=== PATIENT | male | born 1985 | race Caucasian/White ===

== ENCOUNTER 2023-02-07 20:05 | Emergency (ER) | payer BC, SELFPAY ==
[2023-02-07 20:10] VITALS: BP 148/96; PULSE 69; RESP 18; TEMP 36.9; O2SAT 100; BMI 35.0
--- NOTE | 2023-02-07 20:16 | XR_ITS ---
[address] [address] Patient Name: SARAH REA MRN: [id number] date: 1985 Sex: M Assigned Patient Location: ER Current Patient Location: ER Accession/Order Number: [id number] Exam Date: 02/07/2023 20:37 Report Date: 02/07/2023 21:22 At the request of: ÁNGEL BRUNO Procedure: XR hand LT min 3V EXAM: XR hand LT min 3V HISTORY: Thumb bent backwards. COMPARISON: None. TECHNIQUE: 3 views FINDINGS: No osseous lesion, fracture, dislocation or subluxation. Joint spaces are normal. No visualized effusion. No visualized soft tissue edema. XR/XR hand LT min 3V IMPRESSION: Normal x-rays Electronically authenticated by: ANN BAUTISTA Date: 02/07/2023 21:22
--- NOTE | 2023-02-07 21:55 | ED.GENADUL1 ---
HPI - General Adult General Chief complaint: Extremity Injury, Upper Stated complaint: LT THUMB INJURY Time Seen by Provider: 02/07/23 21:32 Source: patient Mode of arrival: walk-in Limitations: no limitations History of Present Illness HPI narrative: Patient presented with left thumb injury after he was in the [facility] pit and Apparently while other people surfing the concert he injured his left thumb, he mentioned that he felt that his left thumb got fully extended enough to touch the back of his arm And that when he felt the pain Related Data Home Medications Medication Instructions Recorded Confirmed bupropion HCl 300 mg 24 hr tablet, 300 mg PO DAILY 02/07/23 02/07/23 extended release (Wellbutrin XL) fluoxetine 10 mg capsule (Prozac) 10 mg PO DAILY 02/07/23 02/07/23 mirtazapine 15 mg tablet (Remeron) 15 mg PO DAILY 02/07/23 02/07/23 Previous Rx's Medication Instructions Recorded famotidine 20 mg tablet (Pepcid) 20 mg PO BID #10 tabs 02/07/23 meloxicam 15 mg tablet 15 mg PO DAILY PRN pain #10 tabs 02/07/23 prednisone 50 mg tablet 50 mg PO DAILY 5 days #5 tabs 02/07/23 Allergies Allergy/AdvReac Type Severity Reaction Status Date / Time No Known Drug Allergies Allergy Verified 02/07/23 20:14 Review of Systems ROS Status of ROS 10 or more systems reviewed and unremarkable except as noted in history and below Exam Narrative Exam Narrative: Nurses notes and vital signs reviewed and patient is not hypoxic. General: Well-appearing and in no apparent distress. Skin: Warm, dry, no pallor noted. No rash. Head: Normocephalic, atraumatic. Neck: Supple, non-tender. Eye: Pupils are equal, round and EOMI. No scleral icterus. Ears, Nose, Mouth, and Throat: TM are clear, no nasal mucosal hypertrophy. Oral mucosa is moist, no posterior oropharynx erythema, uvula is mid-line Cardiovascular: Regular Rate and Rhythm without murmur, gallop or rub. Respiratory: No accessory muscle use or respiratory distress. Lungs are clear to auscultation, no wheezing, rales or rhonchi Chest Wall: no tenderness Back: No midline thoracic or lumbar vertebral tenderness. No CVA tenderness Musculoskeletal: normal ROM, no calf or popliteal tenderness, no lower extremity edema/swelling,There is swelling and edema of the left thumb but proximal area of the metacarpophalangeal joint there is no tenderness on palpation of the scaphoid area or the rest the tenderness only at the proximal phalanx of the thumb on the left hand GI: Abdomen is soft, non-distended. Normal bowel sounds. No masses appreciated. No tenderness to palpation. No rebound, guarding, or rigidity noted. Neurological: A&O x4. No cranial nerve dysfunction observed. No truncal ataxia. Moves all extremities. Sensation intact. Psychiatric: Cooperative and interactive. Normal mood and affect. Constitutional Vital Signs, click to edit/add: Last Vital Signs Temp 98.5 F 02/07/23 20:10 Pulse 69 02/07/23 20:10 Resp 18 02/07/23 20:10 BP 148/96 H 02/07/23 20:10 Pulse Ox 100 02/07/23 20:10 O2 Del Method Room Air 02/07/23 20:10 Course Vital Signs Vital signs: Vital Signs Temperature 98.5 F 02/07/23 20:10 Pulse Rate 69 02/07/23 20:10 Respiratory Rate 18 02/07/23 20:10 Blood Pressure 148/96 H 02/07/23 20:10 Pulse Oximetry 100 02/07/23 20:10 Oxygen Delivery Method Room Air 02/07/23 20:10 Temperature 98.5 F 02/07/23 20:10 Pulse Rate 69 02/07/23 20:10 Respiratory Rate 18 02/07/23 20:10 Blood Pressure 148/96 H 02/07/23 20:10 Pulse Oximetry 100 02/07/23 20:10 Oxygen Delivery Method Room Air 02/07/23 20:10 Medical Decision Making MDM Narrative Medical decision making narrative: X-ray of the patient's left hand showed no acute pathology The patient was treated possible sprain of the left metacarpophalangeal joint and he will be treated with a thumb splint ( spica ) with elevation and rest and follow-up with orthopedic at outpatient Discharge home with the prednisone Mobic as well as the Pepcid The patient is to followup with primary care physician in next 2-3 days or to return to the emergency department should any of the signs or symptoms worsen or new symptoms develop. The patient agrees with the following Diagnosis and Treatment plan and the patient will be discharged home. Discharge Plan Discharge Chief Complaint: Extremity Injury, Upper Clinical Impression: Left thumb sprain Patient Disposition: Home, Self-Care Time of Disposition Decision: 22:09 Condition: Good Mode of Transportation: Private Vehicle Prescriptions / Home Meds: New famotidine [Pepcid] 20 mg tablet 20 mg PO BID Qty: 10 0RF prednisone 50 mg tablet 50 mg PO DAILY 5 Days Qty: 5 0RF meloxicam 15 mg tablet 15 mg PO DAILY PRN (Reason: pain) Qty: 10 0RF No Action fluoxetine [Prozac] 10 mg capsule 10 mg PO DAILY bupropion HCl [Wellbutrin XL] 300 mg tablet extended release 24 hr 300 mg PO DAILY mirtazapine [Remeron] 15 mg tablet 15 mg PO DAILY Instructions: Finger Sprain (ED) Stand Alone Forms: Portal Instructions Referrals: Physician,Non-Staff, MD [Primary Care Provider] - 1 week Discharge Date/Time: 02/07/23 22:29
[2023-02-07] MEDS: KETOROLAC TROMETHAMINE 30 MG/ML VIAL IM (22:12)
== END 2023-02-07 22:29 | disposition home or self-care (01) ==
PROVIDERS: Emergency Provider Emergency Medicine
DX: S63.602A Unspecified sprain of left thumb, initial encounter (principal); X50.9XXA Other and unspecified overexertion or strenuous movements or postures, initial encounter
CPT/HCPCS: 73130; 96372; 99284

== ENCOUNTER 2023-04-12 17:58 | Emergency (ER) | payer BC, SELFPAY ==
[2023-04-12 18:03] VITALS: BP 140/84; PULSE 75; RESP 18; TEMP 36.6; O2SAT 98; BMI 29.9
[2023-04-12 18:12] VITALS: O2SAT 99
--- NOTE | 2023-04-12 18:13 | ECG_ITS ---
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
--- NOTE | 2023-04-12 18:13 | XR_ITS ---
The [address] [address] Patient Name: SARAH REA MRN: [id number] date: 1985 Sex: M Assigned Patient Location: ED.MAIN Current Patient Location: ED.MAIN Accession/Order Number: [id number] Exam Date: 04/12/2023 18:41 Report Date: 04/12/2023 19:52 At the request of: JESUS HENDERSON Procedure: XR chest 1V EXAM: XR chest 1V REASON FOR EXAM: Male, 37 years, chest pain. TECHNIQUE: A single AP view of the chest is performed. COMPARISON: 12/15/2022. FINDINGS: Cardiac monitoring leads project over the chest. The lungs are expanded and clear. Normal pleura. Normal size heart. Normal mediastinum and heavenly. Normal visualized pulmonary arteries. Normal visualized aortic arch and descending thoracic aorta. Normal visualized thoracic spine. Normal visualized ribs, clavicles, and shoulders. There is no demonstrated abnormality of the visualized soft tissue structures of the upper abdomen. XR/XR chest 1V IMPRESSION: Normal examination of the chest. Electronically authenticated by: ASIA MENDIETA Date: 04/12/2023 19:52
--- NOTE | 2023-04-12 18:22 | ED.CHESTPAI1 ---
HPI - Chest Pain General Chief Complaint: Chest Pain Stated Complaint: CHEST PAIN Time Seen by Provider: 04/12/23 18:01 Source: patient Mode of arrival: walk-in Limitations: no limitations History of Present Illness HPI narrative: Patient told me that his symptoms started last night - he had the sensation that his heart was fluttering in his chest and occasionally racing. He did not feel any dizziness but had the vague sensation that he might pass out. He was laying down in bed at the time. he denied any recent vigorous activity or inciting event. No reason injury to the chest wall. No cough. No fever or chills. This morning around 8am he developed pain in the left chest. This has been intermittent since it began. He also has pain in the left shoulder that he describes as a tension . No recent shoulder injury or known activity to cause shoulder pain. While he does suffer from depression and anxiety with prior history of panic episodes, he told me that this feels different than those episodes. Nothing taken at home for the pain. No personal history of DM, HTN or CAD. 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 He denied any prolonged periods of sitting or laying, no recent airline flights or other DVT risk activities. Related Data Home Medications Medication Instructions Recorded Confirmed bupropion HCl 300 mg 24 hr tablet, 300 mg PO DAILY 02/07/23 02/07/23 extended release (Wellbutrin XL) fluoxetine 10 mg capsule (Prozac) 10 mg PO DAILY 02/07/23 02/07/23 mirtazapine 15 mg tablet (Remeron) 15 mg PO DAILY 02/07/23 02/07/23 Previous Rx's Medication Instructions Recorded famotidine 20 mg tablet (Pepcid) 20 mg PO BID #10 tabs 02/07/23 meloxicam 15 mg tablet 15 mg PO DAILY PRN pain #10 tabs 02/07/23 prednisone 50 mg tablet 50 mg PO DAILY 5 days #5 tabs 02/07/23 Allergies Allergy/AdvReac Type Severity Reaction Status Date / Time No Known Drug Allergies Allergy Verified 02/07/23 20:14 PFSH PFS Social History Smoking status: Current every day smoker Exam Narrative Exam Narrative: Nurses notes and vital signs reviewed and patient is not hypoxic. General: Well-appearing and in no apparent distress. Skin: Warm, dry, no pallor noted. No rash. Head: Normocephalic, atraumatic. Neck: Supple, non-tender. Eye: Pupils are equal, round and EOMI. No scleral icterus. Cardiovascular: Regular Rate and Rhythm without murmur, gallop or rub. Respiratory: No accessory muscle use or respiratory distress. Lungs are clear to auscultation, no wheezing, rales or rhonchi Chest Wall: no tenderness Musculoskeletal: normal ROM, no calf or popliteal tenderness, no lower extremity edema/swelling GI: Abdomen is soft, non-distended. Normal bowel sounds. No tenderness to palpation. No rebound, guarding, or rigidity noted. Neurological: A&O x4. No cranial nerve dysfunction observed. No truncal ataxia. Moves all extremities. Sensation intact. Psychiatric: Cooperative and interactive. Normal mood and affect. Constitutional Vital Signs, click to edit/add: Last Vital Signs Temp 97.8 F 04/12/23 18:03 Pulse 75 04/12/23 18:03 Resp 18 04/12/23 18:03 BP 140/84 04/12/23 18:03 Pulse Ox 99 04/12/23 18:12 O2 Del Method Room Air 04/12/23 18:12 Course Vital Signs Vital signs: Vital Signs Temperature 97.8 F 04/12/23 18:03 Pulse Rate 75 04/12/23 18:03 Respiratory Rate 18 04/12/23 18:03 Blood Pressure 140/84 04/12/23 18:03 Pulse Oximetry 98 04/12/23 18:03 Oxygen Delivery Method Room Air 04/12/23 18:03 Temperature 97.8 F 04/12/23 18:03 Pulse Rate 75 04/12/23 18:03 Respiratory Rate 18 04/12/23 18:03 Blood Pressure 140/84 04/12/23 18:03 Pulse Oximetry 99 04/12/23 18:12 Oxygen Delivery Method Room Air 04/12/23 18:12 MDM - Chest Pain MDM Narrative Medical decision making narrative: 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 Blood drawn and sent for evaluation, including d-dimer, troponin and BNP. portal chest x-ray obtained. This patient was signed out to Dr. Landin at 7 PM shift change to review the lab and x-rays results. Lab Data Labs: Lab Results 04/12/23 Range/Units 18:17 WBC 6.2 (4.0-11.0) 10^3/uL RBC 4.67 L (4.70-6.10) 10^6/uL Hgb 14.4 (14.0-18.0) g/dL Hct 41.3 L (42.0-54.0) % MCV 88.4 (80.0-94.0) fL MCH 30.8 (25.9-34.0) pg MCHC 34.9 (29.9-35.2) g/dL RDW 12.4 (11.0-15.0) % Plt Count 256 (150-450) 10^3/uL MPV 9.7 (9.5-13.5) fL Neut % (Auto) 54.9 (43.0-75.0) % Lymph % (Auto) 35.6 (20.5-60.0) % [place] % (Auto) 7.3 (1.7-12.0) % Eos % (Auto) 1.0 (0.9-7.0) % Baso % (Auto) 0.7 (0.2-2.0) % Neut # (Auto) 3.4 (1.4-6.5) 10^3/uL Lymph # (Auto) 2.2 (1.2-3.8) 10^3/uL [place] # (Auto) 0.5 (0.3-0.8) 10^3/uL Eos # (Auto) 0.1 (0.0-0.7) 10^3/uL Baso # (Auto) 0.0 (0.0-0.1) 10^3/uL Abs Immat Gran (auto) 0.03 (0.00-0.03) 10^3/uL Imm/Tot Granulo (auto) 0.5 (0.0-0.5) % ECG Data Interpretation: EKG interpretation: Emergency Department physician interpretation. Normal sinus rhythm at 66bpm. Normal axis, short [place] intervals and no ST segment elevation or depression. Discharge Plan Discharge Chief Complaint: Chest Pain Clinical Impression: Chest pain Patient Disposition: Still a Patient Prescriptions / Home Meds: No Action fluoxetine [Prozac] 10 mg capsule 10 mg PO DAILY bupropion HCl [Wellbutrin XL] 300 mg tablet extended release 24 hr 300 mg PO DAILY mirtazapine [Remeron] 15 mg tablet 15 mg PO DAILY famotidine [Pepcid] 20 mg tablet 20 mg PO BID Qty: 10 0RF prednisone 50 mg tablet 50 mg PO DAILY 5 Days Qty: 5 0RF meloxicam 15 mg tablet 15 mg PO DAILY PRN (Reason: pain) Qty: 10 0RF Referrals: Physician,Non-Staff, MD [Primary Care Provider] - 1 week
[2023-04-12 18:34] LABS: Basophils Percent Auto 0.7 % (0.2-2.0); Eosinophils Absolute Auto 0.1 10^3/uL (0.0-0.7); Hematocrit 41.3 % (42.0-54.0); Hemoglobin 14.4 g/dL (14.0-18.0); Immature Granulocytes Abs Auto 0.03 10^3/uL (0.00-0.03); Immature Granulocytes Pct Auto 0.5 % (0.0-0.5); Lymphocytes Absolute Auto 2.2 10^3/uL (1.2-3.8); Lymphocytes Percent Auto 35.6 % (20.5-60.0); Mean Corpuscular HGB Conc 34.9 g/dL (29.9-35.2); Mean Corpuscular Hemoglobin 30.8 pg (25.9-34.0); Mean Corpuscular Volume 88.4 fL (80.0-94.0); Mean Platelet Volume 9.7 fL (9.5-13.5); Monocytes Absolute Auto 0.5 10^3/uL (0.3-0.8); Monocytes Percent Auto 7.3 % (1.7-12.0); Neutrophils Absolute Auto 3.4 10^3/uL (1.4-6.5); Neutrophils Percent Auto 54.9 % (43.0-75.0); Platelet Count 256 10^3/uL (150-450); Red Blood Count 4.67 10^6/uL (4.70-6.10); Red Cell Distribution Width 12.4 % (11.0-15.0); White Blood Count 6.2 10^3/uL (4.0-11.0)
[2023-04-12 18:49] LABS: D Dimer 0.19 mg/L FEU (<=0.59)
[2023-04-12 18:57] LABS: Anion Gap 10.5; Carbon Dioxide 26.9 mmol/L (21.0-32.0); Chloride 106 mmol/L (98-107); Estimated GFR (African America >60 (>=60); Glucose 87 mg/dL (74-106); Potassium 3.4 mmol/L (3.5-5.1); Sodium 140 mmol/L (136-145)
[2023-04-12 18:58] LABS: BUN Creatinine Ratio 5.1; Calcium 9.1 mg/dL (8.5-10.1); Estimated GFR (Non-African Ame >60 (>=60); Troponin I High Sensitivity <4.0 pg/mL (4.0-76.1)
== END 2023-04-12 20:25 | disposition home or self-care (01) ==
PROVIDERS: Emergency Medicine; Emergency Provider Internal Medicine
DX: R07.9 Chest pain, unspecified (principal); Z79.899 Other long term (current) drug therapy; F17.210 Nicotine dependence, cigarettes, uncomplicated
CPT/HCPCS: 36415; 71045; 80048; 83880; 84484; 85025; 85378; 93005; 99285

== ENCOUNTER 2023-04-30 15:00 | Emergency (ER) | payer BC, SELFPAY ==
[2023-04-30] VITALS (10 sets, daily range): BP systolic 141; BP diastolic 97; PULSE 68–103; RESP 1–32; TEMP 36.3; O2SAT 94–100; BMI 32.4
--- NOTE | 2023-04-30 15:11 | XR_ITS ---
The [address] [address] Patient Name: SARAH REA MRN: [id number] date: 1985 Sex: M Assigned Patient Location: ED.MAIN Current Patient Location: ER Accession/Order Number: [id number] Exam Date: 04/30/2023 13:25 Report Date: 04/30/2023 15:45 At the request of: OMID MENON Procedure: XR chest 1V EXAMINATION: XR chest 1V HISTORY: CP COMPARISON: No relevant comparison available. TECHNIQUE: FINDINGS: LUNGS: No significant pulmonary parenchymal abnormalities. VASCULATURE: No increased pulmonary vasculature. PLEURA: No pneumothorax, effusion, or pleural thickening. CARDIAC: No cardiomegaly or cardiac silhouette abnormality. MEDIASTINUM: No visible mass or adenopathy. BONES: No fracture or visible bone lesion. OTHER: Negative. XR/XR chest 1V IMPRESSION: No acute cardiopulmonary process Electronically authenticated by: ANN FROST Date: 04/30/2023 15:45
--- NOTE | 2023-04-30 15:11 | ECG_ITS ---
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
--- NOTE | 2023-04-30 15:13 | ED.CHESTPAI1 ---
HPI - Chest Pain General Chief Complaint: Chest Pain Stated Complaint: CHEST PAIN Time Seen by Provider: 04/30/23 15:04 Source: patient Mode of arrival: Wheelchair Limitations: no limitations History of Present Illness HPI narrative: 37-year-old male presents for chest pain. It started twenty minutes ago while he was at work. Today he had a panic attack. He hasn't had any trauma or unusual activity. He is not complaining of shortness of breath. The pain is moderate to severe. It seems to be continuous and it doesn't seem to radiate. Related Data Home Medications Medication Instructions Recorded Confirmed bupropion HCl 300 mg 24 hr tablet, 300 mg PO DAILY 02/07/23 04/30/23 extended release (Wellbutrin XL) fluoxetine 10 mg capsule (Prozac) 10 mg PO DAILY 02/07/23 04/30/23 mirtazapine 15 mg tablet (Remeron) 15 mg PO DAILY 02/07/23 04/30/23 Allergies Allergy/AdvReac Type Severity Reaction Status Date / Time No Known Drug Allergies Allergy Verified 02/07/23 20:14 Review of Systems ROS Narrative A ten point review of systems is negative except as noted above. Psychiatric Reports: panic attacks PFSH PFSH Social History Smoking status: Current every day smoker Exam Narrative Exam Narrative: Nurses note and vital signs reviewed and patient is not hypoxic. General: The patient appears well and in no apparent distress. Patient is resting comfortably on cart. Skin: Warm, dry, no pallor noted. There is no rash noted. Head: Normocephalic, atraumatic Eye: Normal conjunctiva, no drainage Ears, Nose, Mouth, and Throat: oral mucosa is moist. Nares patent. Cardiovascular: Regular Rate and Rhythm Respiratory: Patient is in no distress, no accessory muscle use, lungs are clear to auscultation, no wheezing, rales or rhonchi, mildly tachypneic Back: non-tender GI: often nontender Musculoskeletal: The patient has no evidence of calf tenderness, no pitting edema, symmetrical pulses noted bilaterally Neurological: A&O, normal speech Psychiatric: Cooperative, appears anxious Constitutional Vital Signs, click to edit/add: Last Vital Signs Temp 97.4 F L 04/30/23 15:05 Pulse 76 04/30/23 16:10 Resp 8 L 04/30/23 16:10 BP 141/97 H 04/30/23 15:07 Pulse Ox 94 L 04/30/23 16:10 O2 Del Method Room Air 04/30/23 15:05 Course Vital Signs Vital signs: Vital Signs Temperature 97.4 F L 04/30/23 15:05 Pulse Rate 91 H 04/30/23 15:05 Respiratory Rate 24 04/30/23 15:05 Blood Pressure 141/97 H 04/30/23 15:05 Pulse Oximetry 99 04/30/23 15:05 Oxygen Delivery Method Room Air 04/30/23 15:05 Temperature 97.4 F L 04/30/23 15:05 Pulse Rate 76 04/30/23 16:10 Respiratory Rate 8 L 04/30/23 16:10 Blood Pressure 141/97 H 04/30/23 15:07 Pulse Oximetry 94 L 04/30/23 16:10 Oxygen Delivery Method Room Air 04/30/23 15:05 MDM - Chest Pain MDM Narrative Medical decision making narrative: the patient's workup including EKG, chest x-ray, and troponin is negative. He was given IV Ativan and feels much better and is able to be discharged home. My clinical impression is that he has had a panic attack. Treatment diagnosis and follow-up were discussed with the patient. Differential Diagnosis Differential diagnosis: Likely pneumothorax, unstable angina pectoris, atypical chest pain, st elevation myocardial infarction, costochondritis, chest pain and other (anxiety) Lab Data Attestation: I reviewed the patient's lab results. Labs: Lab Results 04/30/23 Range/Units 15:20 WBC 5.4 (4.0-11.0) 10^3/uL RBC 4.33 L (4.70-6.10) 10^6/uL Hgb 13.5 L (14.0-18.0) g/dL Hct 38.5 L (42.0-54.0) % MCV 88.9 (80.0-94.0) fL MCH 31.2 (25.9-34.0) pg MCHC 35.1 (29.9-35.2) g/dL RDW 12.3 (11.0-15.0) % Plt Count 245 (150-450) 10^3/uL MPV 9.8 (9.5-13.5) fL Neut % (Auto) 63.8 (43.0-75.0) % Lymph % (Auto) 27.0 (20.5-60.0) % [place] % (Auto) 8.1 (1.7-12.0) % Eos % (Auto) 0.2 L (0.9-7.0) % Baso % (Auto) 0.7 (0.2-2.0) % Neut # (Auto) 3.5 (1.4-6.5) 10^3/uL Lymph # (Auto) 1.5 (1.2-3.8) 10^3/uL [place] # (Auto) 0.4 (0.3-0.8) 10^3/uL Eos # (Auto) 0.0 (0.0-0.7) 10^3/uL Baso # (Auto) 0.0 (0.0-0.1) 10^3/uL Abs Immat Gran (auto) 0.01 (0.00-0.03) 10^3/uL Imm/Tot Granulo (auto) 0.2 (0.0-0.5) % Sodium 140 (136-145) mmol/L Potassium 3.2 L (3.5-5.1) mmol/L Chloride 104 (98-107) mmol/L Carbon Dioxide 22.7 (21.0-32.0) mmol/L Anion Gap 16.5 BUN 9.0 (7.0-18.0) mg/dL Creatinine 1.12 (0.70-1.30) mg/dL Est GFR ( Amer) >60 (>=60) Est GFR (Non-Af Amer) >60 (>=60) BUN/Creatinine Ratio 8.0 Glucose 125 H (74-106) mg/dL Calcium 9.0 (8.5-10.1) mg/dL Troponin I High Sens 5.8 (4.0-76.1) pg/mL Imaging Data Chest x-ray: Radiologist's impression: Procedure: XR chest 1V EXAMINATION: XR chest 1V HISTORY: CP COMPARISON: No relevant comparison available. TECHNIQUE: FINDINGS: LUNGS: No significant pulmonary parenchymal abnormalities. VASCULATURE: No increased pulmonary vasculature. PLEURA: No pneumothorax, effusion, or pleural thickening. CARDIAC: No cardiomegaly or cardiac silhouette abnormality. MEDIASTINUM: No visible mass or adenopathy. BONES: No fracture or visible bone lesion. OTHER: Negative. IMPRESSION: No acute cardiopulmonary process Electronically authenticated by: ANN FROST Date: 04/30/2023 15:45 ECG Data Attestation: I personally reviewed and interpreted this ECG as follows: (EKG on my interpretation shows normal sinus rhythm with a rate of 92.) Heart Score History: Slightly/Non-Suspicious ECG: Normal Age: <45 years Risk Factors: No Risk Factors Troponin: <Normal Limit Total Heart Score Recommendations & Risks:: 0 Discharge Plan Discharge Chief Complaint: Chest Pain Clinical Impression: Anxiety, Chest pain Patient Disposition: Home, Self-Care Time of Disposition Decision: 16:43 Condition: Good Mode of Transportation: Private Vehicle Prescriptions / Home Meds: No Action fluoxetine [Prozac] 10 mg capsule 10 mg PO DAILY bupropion HCl [Wellbutrin XL] 300 mg tablet extended release 24 hr 300 mg PO DAILY mirtazapine [Remeron] 15 mg tablet 15 mg PO DAILY Instructions: Chest Pain (ED), Panic Disorder (ED), Anxiety (ED) Stand Alone Forms: Portal Instructions Referrals: Physician,Non-Staff, MD [Primary Care Provider] - 1 week
[2023-04-30 15:29] LABS: Basophils Percent Auto 0.7 % (0.2-2.0); Eosinophils Percent Auto 0.2 % (0.9-7.0); Hematocrit 38.5 % (42.0-54.0); Hemoglobin 13.5 g/dL (14.0-18.0); Immature Granulocytes Abs Auto 0.01 10^3/uL (0.00-0.03); Immature Granulocytes Pct Auto 0.2 % (0.0-0.5); Lymphocytes Absolute Auto 1.5 10^3/uL (1.2-3.8); Mean Corpuscular HGB Conc 35.1 g/dL (29.9-35.2); Mean Corpuscular Hemoglobin 31.2 pg (25.9-34.0); Mean Corpuscular Volume 88.9 fL (80.0-94.0); Mean Platelet Volume 9.8 fL (9.5-13.5); Monocytes Absolute Auto 0.4 10^3/uL (0.3-0.8); Monocytes Percent Auto 8.1 % (1.7-12.0); Neutrophils Absolute Auto 3.5 10^3/uL (1.4-6.5); Neutrophils Percent Auto 63.8 % (43.0-75.0); Platelet Count 245 10^3/uL (150-450); Red Blood Count 4.33 10^6/uL (4.70-6.10); Red Cell Distribution Width 12.3 % (11.0-15.0); White Blood Count 5.4 10^3/uL (4.0-11.0)
[2023-04-30 15:44] LABS: Anion Gap 16.5; Carbon Dioxide 22.7 mmol/L (21.0-32.0); Chloride 104 mmol/L (98-107); Estimated GFR (African America >60 (>=60); Estimated GFR (Non-African Ame >60 (>=60); Glucose 125 mg/dL (74-106); Potassium 3.2 mmol/L (3.5-5.1); Sodium 140 mmol/L (136-145); Troponin I High Sensitivity 5.8 pg/mL (4.0-76.1)
[2023-04-30] MEDS: DIAZEPAM 5 MG/ML - 2 ML INJ SYRINGE IV (15:46)
== END 2023-04-30 16:49 | disposition home or self-care (01) ==
PROVIDERS: Emergency Provider Emergency Medicine
DX: R07.9 Chest pain, unspecified (principal); F41.9 Anxiety disorder, unspecified; Z79.899 Other long term (current) drug therapy; F17.210 Nicotine dependence, cigarettes, uncomplicated
CPT/HCPCS: 36415; 71045; 80048; 84484; 85025; 93005; 96374; 99285

== ENCOUNTER 2023-05-26 12:15 | Emergency (ER) | payer BC, SELFPAY ==
[2023-05-26 12:23] VITALS: BP 149/82; O2SAT 99
[2023-05-26 12:27] VITALS: BP 149/82; PULSE 72; RESP 20; TEMP 36.5; O2SAT 98; BMI 30.8
[2023-05-26 12:30] VITALS: PULSE 80; RESP 15; O2SAT 98; O2SAT 99
--- NOTE | 2023-05-26 12:44 | ECG_ITS ---
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
--- NOTE | 2023-05-26 12:44 | XR_ITS ---
[address] [address] Patient Name: SARAH REA MRN: [id number] date: 1985 Sex: M Assigned Patient Location: ER Current Patient Location: ER Accession/Order Number: [id number] Exam Date: 05/26/2023 13:00 Report Date: 05/26/2023 13:13 At the request of: OMID MENON Procedure: XR chest 1V EXAM: XR chest 1V at 1300 hours HISTORY: CP COMPARISON: 04/30/2023 TECHNIQUE: AP upright portable chest x-ray FINDINGS: The heart is not enlarged and the vasculature is not distended. No acute infiltrate, effusion or pneumothorax is identified. The osseous structures are grossly intact. XR/XR chest 1V IMPRESSION: No acute infiltrate or evidence of cardiac decompensation. The overall appearance of the chest is essentially unchanged. Electronically authenticated by: MICHAEL CORTÉS Date: 05/26/2023 13:13
--- NOTE | 2023-05-26 12:45 | ED_ITS ---
HPI - Chest Pain General Chief Complaint: Chest Pain Stated Complaint: CHEST PAIN, HEADACHE Time Seen by Provider: 05/26/23 12:18 Source: patient Mode of arrival: walk-in History of Present Illness HPI narrative: 37-year-old male presents for chest pain. He's had it intermittently for the past two and half days and he states he has it more than he doesn't. It's just to the left of the sternum on the superior aspect of the sternal area. It is sharp. He doesn't have cough or shortness of breath and there is been no injury. He's also had some pressure in his head. He has a history of anxiety but doesn't feel like it's anxiety. Related Data Home Medications Medication Instructions Recorded Confirmed bupropion HCl 300 mg 24 hr tablet, 300 mg PO DAILY 02/07/23 05/26/23 extended release (Wellbutrin XL) fluoxetine 10 mg capsule (Prozac) 10 mg PO DAILY 02/07/23 05/26/23 aripiprazole 2 mg tablet 2 mg PO DAILY 05/26/23 05/26/23 hydroxyzine HCl 25 mg tablet 25 mg PO Q8H PRN itching 05/26/23 05/26/23 mirtazapine 7.5 mg tablet mg 05/26/23 Allergies Allergy/AdvReac Type Severity Reaction Status Date / Time No Known Drug Allergies Allergy Verified 05/26/23 12:20 Review of Systems ROS Narrative A ten point review of systems is negative except as noted above. PFSH PFSH Social History Smoking status: Current every day smoker Exam Narrative Exam Narrative: Nurses note and vital signs reviewed and patient is not hypoxic. General: The patient appears well and in no apparent distress. Patient is resting comfortably on cart. Skin: Warm, dry, no pallor noted. There is no rash noted. Head: Normocephalic, atraumatic Eye: Normal conjunctiva, no drainage Ears, Nose, Mouth, and Throat: oral mucosa is moist. Nares patent. Cardiovascular: Regular Rate and Rhythm; Chest wall not tender, no crepitus bruise or rash Respiratory: Patient is in no distress, no accessory muscle use, lungs are clear to auscultation, no wheezing, rales or rhonchi Back: non-tender GI: soft and nontender Musculoskeletal: The patient has no evidence of calf tenderness, no pitting edema, symmetrical pulses noted bilaterally Neurological: A&O, normal speech Psychiatric: Cooperative Constitutional Vital Signs, click to edit/add: Last Vital Signs Temp 97.7 F 05/26/23 12:27 Pulse 74 05/26/23 13:00 Resp 15 05/26/23 12:30 BP 149/82 H 05/26/23 12:27 Pulse Ox 98 05/26/23 12:30 O2 Del Method Room Air 05/26/23 12:30 Course Vital Signs Vital signs: Vital Signs Blood Pressure 149/82 H 05/26/23 12:23 Pulse Oximetry 99 05/26/23 12:23 Temperature 97.7 F 05/26/23 12:27 Pulse Rate 74 05/26/23 13:00 Respiratory Rate 15 05/26/23 12:30 Blood Pressure 149/82 H 05/26/23 12:27 Pulse Oximetry 98 05/26/23 12:30 Oxygen Delivery Method Room Air 05/26/23 12:30 MDM - Chest Pain MDM Narrative Medical decision making narrative: patient's workup is negative including troponin and d-dimer. He was given IV Toradol here and is discharged home and was reassured. Treatment diagnosis and follow-up were discussed with the patient. At this point I do not suspect acute coronary syndrome or pulmonary embolism. Differential Diagnosis Differential diagnosis: Likely pneumothorax, unstable angina pectoris, atypical chest pain, st elevation myocardial infarction and costochondritis Lab Data Attestation: I reviewed the patient's lab results. Labs: Lab Results 05/26/23 Range/Units 12:45 WBC 7.3 (4.0-11.0) 10^3/uL RBC 4.60 L (4.70-6.10) 10^6/uL Hgb 14.4 (14.0-18.0) g/dL Hct 40.4 L (42.0-54.0) % MCV 87.8 (80.0-94.0) fL MCH 31.3 (25.9-34.0) pg MCHC 35.6 H (29.9-35.2) g/dL RDW 12.5 (11.0-15.0) % Plt Count 269 (150-450) 10^3/uL MPV 9.4 L (9.5-13.5) fL Neut % (Auto) 59.3 (43.0-75.0) % Lymph % (Auto) 33.0 (20.5-60.0) % [place] % (Auto) 6.5 (1.7-12.0) % Eos % (Auto) 0.3 L (0.9-7.0) % Baso % (Auto) 0.6 (0.2-2.0) % Neut # (Auto) 4.3 (1.4-6.5) 10^3/uL Lymph # (Auto) 2.4 (1.2-3.8) 10^3/uL [place] # (Auto) 0.5 (0.3-0.8) 10^3/uL Eos # (Auto) 0.0 (0.0-0.7) 10^3/uL Baso # (Auto) 0.0 (0.0-0.1) 10^3/uL Abs Immat Gran (auto) 0.02 (0.00-0.03) 10^3/uL Imm/Tot Granulo (auto) 0.3 (0.0-0.5) % D-Dimer <0.19 (<=0.59) mg/L FEU Sodium 138 (136-145) mmol/L Potassium 3.7 (3.5-5.1) mmol/L Chloride 103 (98-107) mmol/L Carbon Dioxide 24.8 (21.0-32.0) mmol/L Anion Gap 13.9 BUN 9.0 (7.0-18.0) mg/dL Creatinine 0.99 (0.70-1.30) mg/dL Est GFR ( Amer) >60 (>=60) Est GFR (Non-Af Amer) >60 (>=60) BUN/Creatinine Ratio 9.1 Glucose 93 (74-106) mg/dL Calcium 9.0 (8.5-10.1) mg/dL Troponin I High Sens <4.0 L (4.0-76.1) pg/mL Imaging Data Chest x-ray: Radiologist's impression: Procedure: XR chest 1V EXAM: XR chest 1V at 1300 hours HISTORY: CP COMPARISON: 04/30/2023 TECHNIQUE: AP upright portable chest x-ray FINDINGS: The heart is not enlarged and the vasculature is not distended. No acute infiltrate, effusion or pneumothorax is identified. The osseous structures are grossly intact. IMPRESSION: No acute infiltrate or evidence of cardiac decompensation. The overall appearance of the chest is essentially unchanged. Electronically authenticated by: MICHAEL CORTÉS Date: 05/26/2023 13:13 ECG Data Attestation: I personally reviewed and interpreted this ECG as follows: (EKG on my interpretation shows normal sinus rhythm without acute change and a rate of 77.) Heart Score History: Slightly/Non-Suspicious ECG: Normal Age: <45 years Risk Factors: No Risk Factors Troponin: <Normal Limit Total Heart Score Recommendations & Risks:: 0 Discharge Plan Discharge Chief Complaint: Chest Pain Clinical Impression: Chest pain Patient Disposition: Home, Self-Care Time of Disposition Decision: 13:34 Condition: Good Mode of Transportation: Private Vehicle Prescriptions / Home Meds: No Action fluoxetine [Prozac] 10 mg capsule 10 mg PO DAILY bupropion HCl [Wellbutrin XL] 300 mg tablet extended release 24 hr 300 mg PO DAILY aripiprazole 2 mg tablet 2 mg PO DAILY hydroxyzine HCl 25 mg tablet 25 mg PO Q8H PRN (Reason: itching) mirtazapine 7.5 mg tablet Instructions: Chest Pain (ED), Noncardiac Chest Pain (ED), Chest Wall Pain (ED) Stand Alone Forms: Portal Instructions Referrals: Physician,Non-Staff, MD [Primary Care Provider] - 1 week
[2023-05-26 13:00] VITALS: PULSE 74
[2023-05-26 13:02] LABS: Basophils Percent Auto 0.6 % (0.2-2.0); Eosinophils Percent Auto 0.3 % (0.9-7.0); Hematocrit 40.4 % (42.0-54.0); Hemoglobin 14.4 g/dL (14.0-18.0); Immature Granulocytes Abs Auto 0.02 10^3/uL (0.00-0.03); Immature Granulocytes Pct Auto 0.3 % (0.0-0.5); Lymphocytes Absolute Auto 2.4 10^3/uL (1.2-3.8); Mean Corpuscular HGB Conc 35.6 g/dL (29.9-35.2); Mean Corpuscular Hemoglobin 31.3 pg (25.9-34.0); Mean Corpuscular Volume 87.8 fL (80.0-94.0); Mean Platelet Volume 9.4 fL (9.5-13.5); Monocytes Absolute Auto 0.5 10^3/uL (0.3-0.8); Monocytes Percent Auto 6.5 % (1.7-12.0); Neutrophils Absolute Auto 4.3 10^3/uL (1.4-6.5); Neutrophils Percent Auto 59.3 % (43.0-75.0); Platelet Count 269 10^3/uL (150-450); Red Cell Distribution Width 12.5 % (11.0-15.0); White Blood Count 7.3 10^3/uL (4.0-11.0)
[2023-05-26 13:16] LABS: D Dimer <0.19 mg/L FEU (<=0.59)
[2023-05-26 13:18] LABS: Anion Gap 13.9; BUN Creatinine Ratio 9.1; Carbon Dioxide 24.8 mmol/L (21.0-32.0); Chloride 103 mmol/L (98-107); Estimated GFR (African America >60 (>=60); Estimated GFR (Non-African Ame >60 (>=60); Glucose 93 mg/dL (74-106); Potassium 3.7 mmol/L (3.5-5.1); Sodium 138 mmol/L (136-145); Troponin I High Sensitivity <4.0 pg/mL (4.0-76.1)
[2023-05-26] MEDS: KETOROLAC TROMETHAMINE 30 MG/ML VIAL IVP (13:39)
[2023-05-26 13:40] VITALS: BP 137/88; PULSE 72; RESP 20; O2SAT 99
== END 2023-05-26 13:55 | disposition home or self-care (01) ==
PROVIDERS: Emergency Provider Emergency Medicine
DX: R07.9 Chest pain, unspecified (principal); Z79.899 Other long term (current) drug therapy; F41.9 Anxiety disorder, unspecified; F17.210 Nicotine dependence, cigarettes, uncomplicated
CPT/HCPCS: 36415; 71045; 80048; 84484; 85025; 85378; 93005; 96374; 99285

== ENCOUNTER 2023-05-30 21:14 | Emergency (ER) | payer BC, SELFPAY ==
[2023-05-30] VITALS (16 sets, daily range): BP systolic 114–145; BP diastolic 74–86; PULSE 68–152; RESP 16–40; TEMP 36.6; O2SAT 93–100; BMI 31.6
--- NOTE | 2023-05-30 21:41 | ECG_ITS ---
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
--- NOTE | 2023-05-30 21:48 | CT_ITS ---
[address] [address] Patient Name: SARAH REA MRN: [id number] date: 1985 Sex: M Assigned Patient Location: ER Current Patient Location: ED.MAIN Accession/Order Number: [id number] Exam Date: 05/30/2023 22:08 Report Date: 05/30/2023 23:02 At the request of: NICOLÁS CASTELLANO Procedure: CT angio chest EXAMINATION:CT angio chest INDICATION:PE rule out COMPARISON:None TECHNIQUE:Thin section transaxial slices were acquired through the chest with intravenous contrast per PE protocol. 3-D, Coronal and sagittal reconstructed images were reviewed. FINDINGS: PULMONARY ARTERIES: There is good opacification of the pulmonary vasculature. No suspicious pulmonary arterial filling defects are identified to suggest pulmonary embolus. LUNGS: There is hazy symmetric groundglass opacity in the posterior lobes which may be due to dependent changes in the lungs. No suspicious nodules, masses or infiltrates are present. PLEURAL CAVITY: No pleural effusion. MEDIASTINUM: Trachea and central airways are patent. HEART: The heart is unremarkable.There is no evidence of right heart strain. VASCULAR:No aneurysm or dissection. LYMPH NODES:No suspicious lymphadenopathy. CHEST WALL/AXILLA: Chest wall and axilla are unremarkable. BONES: Osseous structures are unremarkable. VISUALIZED UPPER ABDOMEN: Upper abdominal structures are unremarkable. CT/CT angio chest IMPRESSION: 1. No evidence of pulmonary embolus. Electronically authenticated by: VERONIKA MARC Date: 05/30/2023 23:02
--- NOTE | 2023-05-30 21:51 | ED.CHESTPAI1 ---
HPI - Chest Pain General Chief Complaint: Chest Pain Stated Complaint: CHEST PAIN Time Seen by Provider: 05/30/23 21:24 Source: patient Mode of arrival: walk-in History of Present Illness HPI narrative: 37-year-old male to the emergency department with chief complaint of chest pain. Patient reports that he has been getting intermittent chest pain associated with panic attacks for several weeks. He reports that he has a child with autism, his girlfriend mother suddenly , increased stress from work and missing work for the previous two reasons. Patient reports that he was playing [employer] began to experience some bilateral hand tingling, feeling as though he couldn't move his hands, hyperventilating, chest pain, feeling of impending doom. He reports this is similar to past panic attacks. He reports that he has a history of anxiety, panic attacks, bipolar disorder currently on several medications. He sees a counselor for this. Patient is concerned he may be having a heart attack. He denies any drugs or alcohol. He denies any suicidal ideation/plan, homicidal ideation/plan. Related Data Home Medications Medication Instructions Recorded Confirmed bupropion HCl 300 mg 24 hr tablet, 300 mg PO DAILY 02/07/23 05/26/23 extended release (Wellbutrin XL) fluoxetine 10 mg capsule (Prozac) 10 mg PO DAILY 02/07/23 05/26/23 aripiprazole 2 mg tablet 2 mg PO DAILY 05/26/23 05/26/23 hydroxyzine HCl 25 mg tablet 25 mg PO Q8H PRN itching 05/26/23 05/26/23 mirtazapine 7.5 mg tablet mg 05/26/23 Allergies Allergy/AdvReac Type Severity Reaction Status Date / Time No Known Drug Allergies Allergy Verified 05/30/23 21:28 Review of Systems ROS Status of ROS 10 or more systems reviewed and unremarkable except as noted in history and below PFS PFS Social History Smoking status: Current every day smoker Exam Narrative Exam Narrative: VITALS: I have reviewed the triage vital signs. GENERAL: Obese adult male with green hair crying NEURO: Alert and oriented. Moves all extremities. Face is symmetric and expressive. EYES: PERRL. No scleral icterus or conjunctival injection. No discharge. HENT: Normocephalic, atraumatic. Hearing is grossly intact. Nares grossly patent and without discharge. Mucous membranes moist. NECK: No JVD. Patient moves neck without restriction. CARDIO: Rhythm regular. Normal rate. No murmur, rub, or gallop. Pulses equal bilaterally in the upper and lower extremity. No lower extremity edema. PULM: Lungs clear to auscultation in all wang. No wheezes, rales, or rhonchi. No conversational dyspnea. No splinting, stridor, or accessory muscle use. GI/: Abdomen is soft and non-tender. Normoactive bowel sounds. EXTREMITIES: Symmetric muscle bulk. No joint swelling. No clubbing, cyanosis, or deformity. SKIN: Warm and dry. Normal turgor. No rash or lesions appreciated. PSYCH: Mood, affect, and interaction is appropriate to the setting. Constitutional Vital Signs, click to edit/add: Last Vital Signs Temp 98 F 05/30/23 21:21 Pulse 74 05/30/23 22:50 Resp 18 05/30/23 22:50 BP 145/86 H 05/30/23 21:25 Pulse Ox 97 05/30/23 22:50 O2 Del Method Room Air 05/30/23 21:21 Course Vital Signs Vital signs: Vital Signs Pulse Rate 152 H 05/30/23 21:20 Pulse Oximetry 98 05/30/23 21:20 Temperature 98 F 05/30/23 21:21 Pulse Rate 74 05/30/23 22:50 Respiratory Rate 18 05/30/23 22:50 Blood Pressure 145/86 H 05/30/23 21:25 Pulse Oximetry 97 05/30/23 22:50 Oxygen Delivery Method Room Air 05/30/23 21:21 MDM - Chest Pain MDM Narrative Medical decision making narrative: 37-year-old male with history anxiety, depression, bipolar disorder, panic attacks emergency department with chief complaint of panic attack and chest pain. Tachycardic, otherwise stable vitals. The patient is afebrile. He is tearful and anxious on exam. Cardiac workup is initiated. Previous visits were reviewed. He's had multiple presentations with similar symptoms in the emergency department. Will order CT and chest rule out pulmonary was in her dissection tonight given his multiple repeat visits. EKG without any ischemia. Patient agrees with this plan. No SI/HI. Reviewed and noted. No major maladies. He has mild hypokalemia which will be repleted orally. EKG without evidence of ischemia. His troponin is low. His heart scores low risk, appropriate for outpatient treatment. CT and a gram without any findings. Patient was given Valium for his anxiety. He improved significantly. Discussed workup with the patient. Discussed follow-up with his outpatient psychiatric team. Discussed follow-up with cardiology. Return precautions were discussed. All questions were answered. The patient was discharged home. Medical Records Data Attestation: I reviewed the patient's medical records. Lab Data Attestation: I reviewed the patient's lab results. Labs: Lab Results 05/30/23 Range/Units 21:28 WBC 9.6 (4.0-11.0) 10^3/uL RBC 4.54 L (4.70-6.10) 10^6/uL Hgb 14.0 (14.0-18.0) g/dL Hct 40.5 L (42.0-54.0) % MCV 89.2 (80.0-94.0) fL MCH 30.8 (25.9-34.0) pg MCHC 34.6 (29.9-35.2) g/dL RDW 12.5 (11.0-15.0) % Plt Count 305 (150-450) 10^3/uL MPV 9.5 (9.5-13.5) fL Neut % (Auto) 59.6 (43.0-75.0) % Lymph % (Auto) 30.7 (20.5-60.0) % [place] % (Auto) 8.4 (1.7-12.0) % Eos % (Auto) 0.3 L (0.9-7.0) % Baso % (Auto) 0.5 (0.2-2.0) % Neut # (Auto) 5.7 (1.4-6.5) 10^3/uL Lymph # (Auto) 3.0 (1.2-3.8) 10^3/uL [place] # (Auto) 0.8 (0.3-0.8) 10^3/uL Eos # (Auto) 0.0 (0.0-0.7) 10^3/uL Baso # (Auto) 0.1 (0.0-0.1) 10^3/uL Abs Immat Gran (auto) 0.05 H (0.00-0.03) 10^3/uL Imm/Tot Granulo (auto) 0.5 (0.0-0.5) % PT 9.8 (9.0-11.6) sec INR <0.93 APTT 26.8 (22.3-36.2) sec Sodium 135 L (136-145) mmol/L Potassium 3.1 L (3.5-5.1) mmol/L Chloride 103 (98-107) mmol/L Carbon Dioxide 24.5 (21.0-32.0) mmol/L Anion Gap 10.6 BUN 10.0 (7.0-18.0) mg/dL Creatinine 1.12 (0.70-1.30) mg/dL Est GFR ( Amer) >60 (>=60) Est GFR (Non-Af Amer) >60 (>=60) BUN/Creatinine Ratio 8.9 Glucose 84 (74-106) mg/dL Calcium 9.5 (8.5-10.1) mg/dL Total Bilirubin 0.4 (0.2-1.0) mg/dL AST 15 (15-37) U/L ALT 30 (16-63) U/L Alkaline Phosphatase 67 (46-116) U/L Troponin I High Sens <4.0 L (4.0-76.1) pg/mL Total Protein 7.4 (6.4-8.2) g/dL Albumin 3.9 (3.4-5.0) g/dL Globulin 3.5 g/dL Albumin/Globulin Ratio 1.1 Lipase 32.0 (16.0-77.0) U/L Imaging Data CT scan - chest: Attestation: I have reviewed the pertinent imaging results. ECG Data Attestation: I personally reviewed and interpreted this ECG as follows: (Sinus at 104. Normal QTC. No acute ischemic pattern. ) Heart Score History: Slightly/Non-Suspicious ECG: Normal Age: <45 years Risk Factors: No Risk Factors Troponin: <Normal Limit Total Heart Score Recommendations & Risks:: 0 Discharge Plan Discharge Chief Complaint: Chest Pain Clinical Impression: Anxiety, Chest pain Patient Disposition: Home, Self-Care Time of Disposition Decision: 23:15 Condition: Good Mode of Transportation: Private Vehicle Prescriptions / Home Meds: No Action fluoxetine [Prozac] 10 mg capsule 10 mg PO DAILY bupropion HCl [Wellbutrin XL] 300 mg tablet extended release 24 hr 300 mg PO DAILY aripiprazole 2 mg tablet 2 mg PO DAILY hydroxyzine HCl 25 mg tablet 25 mg PO Q8H PRN (Reason: itching) mirtazapine 7.5 mg tablet Print Language: Macedonian Instructions: Chest Pain (ED), Anxiety (ED) Stand Alone Forms: Portal Instructions Referrals: Physician,Non-Staff, [Primary Care Provider] - 1 week Bal Greenfield MD [Physician] - 1 week
[2023-05-30 22:00] LABS: Basophils Absolute Auto 0.1 10^3/uL (0.0-0.1); Basophils Percent Auto 0.5 % (0.2-2.0); Eosinophils Percent Auto 0.3 % (0.9-7.0); Hematocrit 40.5 % (42.0-54.0); Immature Granulocytes Abs Auto 0.05 10^3/uL (0.00-0.03); Immature Granulocytes Pct Auto 0.5 % (0.0-0.5); Lymphocytes Percent Auto 30.7 % (20.5-60.0); Mean Corpuscular HGB Conc 34.6 g/dL (29.9-35.2); Mean Corpuscular Hemoglobin 30.8 pg (25.9-34.0); Mean Corpuscular Volume 89.2 fL (80.0-94.0); Mean Platelet Volume 9.5 fL (9.5-13.5); Monocytes Absolute Auto 0.8 10^3/uL (0.3-0.8); Monocytes Percent Auto 8.4 % (1.7-12.0); Neutrophils Absolute Auto 5.7 10^3/uL (1.4-6.5); Neutrophils Percent Auto 59.6 % (43.0-75.0); Platelet Count 305 10^3/uL (150-450); Red Blood Count 4.54 10^6/uL (4.70-6.10); Red Cell Distribution Width 12.5 % (11.0-15.0); White Blood Count 9.6 10^3/uL (4.0-11.0)
[2023-05-30 22:20] LABS: Partial Thromboplastin Time 26.8 sec (22.3-36.2); Prothrombin Time 9.8 sec (9.0-11.6)
[2023-05-30 22:21] LABS: Alanine Aminotransferase 30 U/L (16-63); Albumin Globulin Ratio 1.1; Albumin Level 3.9 g/dL (3.4-5.0); Alkaline Phosphatase 67 U/L (46-116); Anion Gap 10.6; Aspartate Amino Transferase 15 U/L (15-37); BUN Creatinine Ratio 8.9; Bilirubin Total 0.4 mg/dL (0.2-1.0); Calcium 9.5 mg/dL (8.5-10.1); Carbon Dioxide 24.5 mmol/L (21.0-32.0); Chloride 103 mmol/L (98-107); Estimated GFR (African America >60 (>=60); Estimated GFR (Non-African Ame >60 (>=60); Globulin 3.5 g/dL; Glucose 84 mg/dL (74-106); Potassium 3.1 mmol/L (3.5-5.1); Sodium 135 mmol/L (136-145); Total Protein 7.4 g/dL (6.4-8.2)
[2023-05-30 22:22] LABS: INR <0.93
[2023-05-30 22:24] LABS: Troponin I High Sensitivity <4.0 pg/mL (4.0-76.1)
[2023-05-30] MEDS: DIAZEPAM 5 MG/ML - 2 ML INJ SYRINGE IV (22:37)
[2023-05-30] MEDS: POTASSIUM CHLORIDE 10 MEQ ER TABLET 40 MEQ PO (23:36)
== END 2023-05-30 23:41 | disposition home or self-care (01) ==
PROVIDERS: Emergency Provider Student in an Organized Health Care Education/Training Program
DX: F41.9 Anxiety disorder, unspecified (principal); R07.9 Chest pain, unspecified; F31.9 Bipolar disorder, unspecified; Z79.899 Other long term (current) drug therapy; F17.210 Nicotine dependence, cigarettes, uncomplicated
CPT/HCPCS: 36415; 71275; 80053; 83690; 84484; 85025; 85610; 85730; 93005; 96374; 99285; Q9967

== ENCOUNTER 2023-10-29 13:30 | Emergency (ER) | payer SELFPAY ==
[2023-10-29 13:53] VITALS: BP 152/97; PULSE 88; TEMP 36.6; O2SAT 99; BMI 41.9
--- NOTE | 2023-10-29 14:04 | CT_ITS ---
The [address] [address] Patient Name: SARAH REA MRN: [id number] date: 1985 Sex: M Assigned Patient Location: ER Current Patient Location: Accession/Order Number: [id number] Exam Date: 10/29/2023 14:30 Report Date: 10/29/2023 14:52 At the request of: YOVANA KNOX Procedure: CT abdomen pelvis w con EXAM: CT scan of the abdomen and pelvis using 99 mL of IV iodinated contrast. Dose reduction technique used: Automated exposure control and/or adjustment of the mA and/or kV according to patient size and/or use of iterative reconstruction technique. REASON FOR EXAM: abdominal pain, diarrhea COMPARISON: None FINDINGS: Normal appendix. No free fluid in the abdomen or pelvis. No free intraperitoneal air. No dilated or thickened loops of small bowel or colon. No hydronephrosis or obstructing renal or ureteral calculi. Liver, pancreas, spleen, bilateral kidneys, and bilateral adrenal glands are otherwise unremarkable. No lymphadenopathy in the abdomen or pelvis. Remainder unremarkable. CT/CT abdomen pelvis w con IMPRESSION: No acute abnormalities in the abdomen or pelvis. Electronically authenticated by: JIN POE Date: 10/29/2023 14:52
--- NOTE | 2023-10-29 14:05 | ED.GENADUL1 ---
HPI HPI - General Adult General Chief complaint: Nausea/Vomiting/Diarrhea Stated complaint: NAUSEA, DIAHRREA Time Seen by Provider: 10/29/23 13:58 Source: patient Mode of arrival: walk-in Limitations: no limitations History of Present Illness HPI narrative: Patient is a 38-year-old male who presents to the emergency department with a 2-day history of diarrhea and abdominal pain. He reports the diarrhea started yesterday, he reports 1 episode of diarrhea every 2-3 hours. He has had no recent antibiotics or travel. He states today he developed moderate abdominal pain along the right side of the abdomen. He has had no fevers or vomiting but reports significant nausea. He denies any abdominal surgeries previously. He went to urgent care and reports when they palpated his abdomen, the provider recommended he come to the ER because he was in so much pain. He drove himself to the ER. No medications prior to arrival. Related Data Home Medications ?Medication ?Instructions ?Recorded ?Confirmed bupropion HCl 300 mg 24 hr tablet, 300 mg PO DAILY 02/07/23 10/29/23 extended release (Wellbutrin XL) fluoxetine 10 mg capsule (Prozac) 10 mg PO DAILY 02/07/23 10/29/23 hydroxyzine HCl 25 mg tablet 25 mg PO Q8H PRN itching 05/26/23 10/29/23 benztropine 0.5 mg tablet 0.5 mg PO 10/29/23 cariprazine 1.5 mg capsule 1.5 mg PO DAILY 10/29/23 10/29/23 (Vraylar) trazodone 50 mg tablet 150 mg PO .qhs 10/29/23 10/29/23 Previous Rx's ?Medication ?Instructions ?Recorded hyoscyamine sulfate 0.125 mg 0.125 mg PO Q6H PRN abdominal pain 10/29/23 tablet (Levsin) #12 tabs ondansetron 4 mg disintegrating 4 mg PO Q6H PRN nausea and 10/29/23 tablet vomiting #12 tabs Allergies Allergy/AdvReac Type Severity Reaction Status Date / Time No Known Drug Allergies Allergy Verified 10/29/23 13:53 Opioid HPI Opioid Management Most Recent Opioid Data: Last Pain Scale 0 04/12/23 18:43 Last MAR Pain Assessment 10/29/23 14:11 Review of Systems ROS Constitutional Denies: fever or chills Ears, nose, mouth, and throat Denies: throat pain or nasal congestion Cardiovascular Denies: chest pain Respiratory Denies: shortness of breath Gastrointestinal Reports: abdominal pain, nausea and diarrhea; Denies: vomiting Musculoskeletal Denies: back pain Integumentary/Breast Denies: rash Neurological Denies: headache Hematologic/Lymphatic Denies: easy bruising or easy bleeding [facility] Social History Smoking status: Current every day smoker Exam Narrative Exam Narrative: Gen.: Awake, alert, in no distress Head: Normocephalic, atraumatic ENT: Moist mucous membranes Respiratory: No respiratory distress, lungs clear bilaterally Cardio: Regular rate and rhythm Gastrointestinal: Abdomen is soft, nondistended and Diffusely tender to palpation with no guarding or rebound Extremities: Moves extremities equally Psych: Normal mood and affect Neuro: No focal neuro deficit Skin: Warm, dry, intact Constitutional Vital Signs, click to edit/add: Last Vital Signs Temp 97.9 F 10/29/23 13:53 Pulse 88 10/29/23 13:53 Resp 16 10/29/23 13:53 BP 152/97 H 10/29/23 13:53 Pulse Ox 99 10/29/23 13:53 O2 Del Method Room Air 10/29/23 13:53 Course Vital Signs Vital signs: Vital Signs Temperature 97.9 F 10/29/23 13:53 Pulse Rate 88 10/29/23 13:53 Respiratory Rate 16 10/29/23 13:53 Blood Pressure 152/97 H 10/29/23 13:53 Pulse Oximetry 99 10/29/23 13:53 Oxygen Delivery Method Room Air 10/29/23 13:53 Temperature 97.9 F 10/29/23 13:53 Pulse Rate 88 10/29/23 13:53 Respiratory Rate 16 10/29/23 13:53 Blood Pressure 152/97 H 10/29/23 13:53 Pulse Oximetry 99 10/29/23 13:53 Oxygen Delivery Method Room Air 10/29/23 13:53 Medical Decision Making MDM Narrative Medical decision making narrative: Patient treated with IV fluids, Levsin, Toradol, Zofran. He had no emesis or diarrhea in the ER. Vital signs, lab studies and CT are unremarkable and he is discharged home with Levsin and Zofran to follow-up with PCP. Return to the ER if symptoms change or worsen Medical Records Medical records reviewed: Yes I reviewed the patient's medical records Lab Data Lab results reviewed: Yes I reviewed the patient's lab results Labs: Lab Results 10/29/23 Range/Units 14:11 WBC 7.2 (4.0-11.0) 10^3/uL RBC 4.63 L (4.70-6.10) 10^6/uL Hgb 14.0 (14.0-18.0) g/dL Hct 40.6 L (42.0-54.0) % MCV 87.7 (80.0-94.0) fL MCH 30.2 (25.9-34.0) pg MCHC 34.5 (29.9-35.2) g/dL RDW 12.6 (11.0-15.0) % Plt Count 242 (150-450) 10^3/uL MPV 9.4 L (9.5-13.5) fL Neut % (Auto) 55.9 (43.0-75.0) % Lymph % (Auto) 33.6 (20.5-60.0) % [place] % (Auto) 7.8 (1.7-12.0) % Eos % (Auto) 1.3 (0.9-7.0) % Baso % (Auto) 0.8 (0.2-2.0) % Neut # (Auto) 4.0 (1.4-6.5) 10^3/uL Lymph # (Auto) 2.4 (1.2-3.8) 10^3/uL [place] # (Auto) 0.6 (0.3-0.8) 10^3/uL Eos # (Auto) 0.1 (0.0-0.7) 10^3/uL Baso # (Auto) 0.1 (0.0-0.1) 10^3/uL Abs Immat Gran (auto) 0.04 H (0.00-0.03) 10^3/uL Imm/Tot Granulo (auto) 0.6 H (0.0-0.5) % Sodium 141 (136-145) mmol/L Potassium 3.9 (3.5-5.1) mmol/L Chloride 106 (98-107) mmol/L Carbon Dioxide 26.4 (21.0-32.0) mmol/L Anion Gap 12.5 BUN 11.0 (7.0-18.0) mg/dL Creatinine 0.98 (0.70-1.30) mg/dL Est GFR ( Amer) >60 (>=60) Est GFR (Non-Af Amer) >60 (>=60) BUN/Creatinine Ratio 11.2 Glucose 91 (74-106) mg/dL Lactate 1.3 (0.4-2.0) mmol/L Calcium 8.8 (8.5-10.1) mg/dL Total Bilirubin 0.2 (0.2-1.0) mg/dL AST 13 L (15-37) U/L ALT 23 (16-63) U/L Alkaline Phosphatase 87 (46-116) U/L Total Protein 7.0 (6.4-8.2) g/dL Albumin 3.6 (3.4-5.0) g/dL Globulin 3.4 g/dL Albumin/Globulin Ratio 1.1 Lipase 41.0 (16.0-77.0) U/L Imaging Data CT scan - abdomen: Attestation: I have reviewed the pertinent imaging results. Radiologist's impression: ITS Impressions Abdomen/Pelvis CT 10/29/23 14:04 IMPRESSION: No acute abnormalities in the abdomen or pelvis. Electronically authenticated by: JIN POE Date: 10/29/2023 14:52 Discharge Plan Discharge Stand Alone Forms: Portal Instructions Chief Complaint: Nausea/Vomiting/Diarrhea Clinical Impression: Diarrhea, Abdominal pain Patient Disposition: Home, Self-Care Time of Disposition Decision: 14:58 Condition: Good Prescriptions / Home Meds: New hyoscyamine sulfate [Levsin] 0.125 mg tablet 0.125 mg PO Q6H PRN (Reason: abdominal pain) Qty: 12 0RF ondansetron 4 mg tablet,disintegrating 4 mg PO Q6H PRN (Reason: nausea and vomiting) Qty: 12 0RF No Action fluoxetine [Prozac] 10 mg capsule 10 mg PO DAILY bupropion HCl [Wellbutrin XL] 300 mg tablet extended release 24 hr 300 mg PO DAILY hydroxyzine HCl 25 mg tablet 25 mg PO Q8H PRN (Reason: itching) trazodone 50 mg tablet 150 mg PO .qhs Vraylar 1.5 mg capsule 1.5 mg PO DAILY benztropine 0.5 mg tablet 0.5 mg PO Patient Comments: started today Print Language: Cameroonian Instructions: Acute Diarrhea (ED), Acute Abdominal Pain (ED) Referrals: Physician,Non-Staff, MD [Primary Care Provider] - 1 week
[2023-10-29] MEDS: HYOSCYAMINE SULFATE 0.125 MG TAB.SUBL SL (14:11)
[2023-10-29] MEDS: 0.9 % SODIUM CHLORIDE 1,000 ML 999 ML IV (14:11)
[2023-10-29] MEDS: ONDANSETRON PF 4 MG/2 ML VIAL IV (14:11)
[2023-10-29] MEDS: KETOROLAC TROMETHAMINE 30 MG/ML VIAL IVP (14:11)
[2023-10-29 14:20] LABS: Basophils Absolute Auto 0.1 10^3/uL (0.0-0.1); Basophils Percent Auto 0.8 % (0.2-2.0); Eosinophils Absolute Auto 0.1 10^3/uL (0.0-0.7); Eosinophils Percent Auto 1.3 % (0.9-7.0); Hematocrit 40.6 % (42.0-54.0); Immature Granulocytes Abs Auto 0.04 10^3/uL (0.00-0.03); Immature Granulocytes Pct Auto 0.6 % (0.0-0.5); Lymphocytes Absolute Auto 2.4 10^3/uL (1.2-3.8); Lymphocytes Percent Auto 33.6 % (20.5-60.0); Mean Corpuscular HGB Conc 34.5 g/dL (29.9-35.2); Mean Corpuscular Hemoglobin 30.2 pg (25.9-34.0); Mean Corpuscular Volume 87.7 fL (80.0-94.0); Mean Platelet Volume 9.4 fL (9.5-13.5); Monocytes Absolute Auto 0.6 10^3/uL (0.3-0.8); Monocytes Percent Auto 7.8 % (1.7-12.0); Neutrophils Percent Auto 55.9 % (43.0-75.0); Platelet Count 242 10^3/uL (150-450); Red Blood Count 4.63 10^6/uL (4.70-6.10); Red Cell Distribution Width 12.6 % (11.0-15.0); White Blood Count 7.2 10^3/uL (4.0-11.0)
[2023-10-29 14:35] LABS: Alanine Aminotransferase 23 U/L (16-63); Albumin Globulin Ratio 1.1; Albumin Level 3.6 g/dL (3.4-5.0); Alkaline Phosphatase 87 U/L (46-116); Anion Gap 12.5; Aspartate Amino Transferase 13 U/L (15-37); BUN Creatinine Ratio 11.2; Bilirubin Total 0.2 mg/dL (0.2-1.0); Calcium 8.8 mg/dL (8.5-10.1); Carbon Dioxide 26.4 mmol/L (21.0-32.0); Chloride 106 mmol/L (98-107); Estimated GFR (African America >60 (>=60); Estimated GFR (Non-African Ame >60 (>=60); Globulin 3.4 g/dL; Glucose 91 mg/dL (74-106); Potassium 3.9 mmol/L (3.5-5.1); Sodium 141 mmol/L (136-145)
[2023-10-29 14:37] LABS: Lactate/Lactic Acid 1.3 mmol/L (0.4-2.0)
== END 2023-10-29 15:12 | disposition home or self-care (01) ==
PROVIDERS: Physician Assistant; Emergency Provider Emergency Medicine Emergency Medical Services
DX: R10.9 Unspecified abdominal pain (principal); R19.7 Diarrhea, unspecified; R11.0 Nausea; F17.200 Nicotine dependence, unspecified, uncomplicated
CPT/HCPCS: 36415; 74177; 80053; 83605; 83690; 85025; 87507; 96374; 96375; 99285; Q9967

== ENCOUNTER 2023-12-31 13:46 | Emergency (ER) | payer BC, SELFPAY ==
[2023-12-31] VITALS (14 sets, daily range): BP systolic 125–136; BP diastolic 78–89; PULSE 58–75; TEMP 36.6; O2SAT 98–100; BMI 40.2
--- NOTE | 2023-12-31 13:55 | ECG_ITS ---
[facility] Test Date: 2023-12-31 Pat Name: SARAH REA Department: Room: - Gender: Male [employer]: : 1985 Requested By: Order Number: [id number] Reading MD: BRANDY JOSE Measurements Intervals [place] Rate: 70 P: 13 ME: 106 QRS: 25 QRSD: 96 T: 21 QT: 384 QTc: 405 Interpretive Statements 1100 Sinus rhythm 2210 Short ME interval 9150 abnormal ECG Compared to ECG 05/30/2023 21:20:42 Short ME interval now present Supraventricular tachycardia no longer present Electronically Signed On 12-31-2023 21:24:02 EDT by BRANDY JOSE
--- NOTE | 2023-12-31 14:09 | ED.SOB1 ---
HPI - SOB/Dyspnea General Chief Complaint: Shortness of Breath/Dyspnea Stated Complaint: SOB Time Seen by Provider: 12/31/23 13:50 Source: patient Mode of arrival: walk-in History of Present Illness HPI Narrative: Patient is a 38-year-old male who presents to the emergency department for right chest wall pain that began this morning associated with dizziness and shortness of breath. Patient has been seen in this emergency department multiple times in the past for chest pain and anxiety. He states it feels slightly similar to panic attacks he has had in the past but the right chest wall pain seems different. He has had no fevers, significant cough or congestion. No hemoptysis. No leg swelling. Pain in the right chest wall is worse with deep breathing and movement. No medications taken prior to arrival. Patient drove himself to the emergency department despite feeling dizzy. On my initial evaluation, the patient was resting comfortably and speaking easily on his cell phone, when I returned to the room, he is hyperventilating and stating he feels more short of breath. Related Data Home Medications ?Medication ?Instructions ?Recorded ?Confirmed bupropion HCl 300 mg 24 hr tablet, 300 mg PO DAILY 02/07/23 10/29/23 extended release (Wellbutrin XL) fluoxetine 10 mg capsule (Prozac) 10 mg PO DAILY 02/07/23 10/29/23 hydroxyzine HCl 25 mg tablet 25 mg PO Q8H PRN itching 05/26/23 10/29/23 benztropine 0.5 mg tablet 0.5 mg PO 10/29/23 cariprazine 1.5 mg capsule 1.5 mg PO DAILY 10/29/23 10/29/23 (Vraylar) trazodone 50 mg tablet 150 mg PO .qhs 10/29/23 10/29/23 Previous Rx's ?Medication ?Instructions ?Recorded hyoscyamine sulfate 0.125 mg 0.125 mg PO Q6H PRN abdominal pain 10/29/23 tablet (Levsin) #12 tabs ondansetron 4 mg disintegrating 4 mg PO Q6H PRN nausea and 10/29/23 tablet vomiting #12 tabs naproxen sodium 550 mg tablet 550 mg PO BID PRN pain #10 tabs 12/31/23 Allergies Allergy/AdvReac Type Severity Reaction Status Date / Time No Known Drug Allergies Allergy Verified 10/29/23 13:53 Review of Systems ROS Constitutional Denies: fever or chills Ears, nose, mouth, and throat Denies: throat pain or nasal congestion Cardiovascular Reports: chest pain Respiratory Reports: shortness of breath Gastrointestinal Denies: abdominal pain, nausea or vomiting Musculoskeletal Denies: back pain Integumentary/Breast Denies: rash Neurological Reports: dizziness Psychiatric Reports: anxiety Hematologic/Lymphatic Denies: easy bruising or easy bleeding PFSH PFSH Social History Smoking status: Current every day smoker Exam Narrative Exam Narrative: Gen.: Awake, alert, in no distress Head: Normocephalic, atraumatic ENT: Moist mucous membranes Respiratory: No respiratory distress, lungs clear bilaterally; Speaks in full sentences, no wheezing or rhonchi. Pain on inspiration Cardio: Regular rate and rhythm Gastrointestinal: Abdomen is soft, nondistended and nontender to palpation Extremities: Moves extremities equally, no pedal edema Psych: Normal mood and affect Neuro: No focal neuro deficit Skin: Warm, dry, intact Constitutional Vital Signs, click to edit/add: Last Vital Signs Temp 97.8 F 12/31/23 13:59 Pulse 63 12/31/23 15:10 Resp 18 12/31/23 15:10 BP 130/83 12/31/23 15:00 Pulse Ox 99 12/31/23 15:10 Course Vital Signs Vital signs: Vital Signs Pulse Rate 70 12/31/23 13:51 Respiratory Rate 14 12/31/23 13:51 Blood Pressure 129/89 12/31/23 13:51 Pulse Oximetry 100 12/31/23 13:51 Temperature 97.8 F 12/31/23 13:59 Pulse Rate 63 12/31/23 15:10 Respiratory Rate 18 12/31/23 15:10 Blood Pressure 130/83 12/31/23 15:00 Pulse Oximetry 99 12/31/23 15:10 MDM - SOB/Dyspnea MDM Narrative Medical decision making narrative: Patient was stable vital signs, treated with IV fluids and Toradol for pleuritic chest pain. He has normal oxygen saturation in the ER. He drove himself to the ER and is planning on driving home she was not medicated with any medications for anxiety. Lab studies including D-dimer, troponin and BNP are within normal limits and chest x-ray is clear. No EKG changes. Patient discharged home with NSAIDs for pain to follow-up with PCP, return to the ER if symptoms change or worsen. Medical Records Attestation: I reviewed the patient's medical records. Lab Data Attestation: I reviewed the patient's lab results. Labs: Lab Results 12/31/23 Range/Units 13:57 WBC 7.3 (4.0-11.0) 10^3/uL RBC 5.02 (4.70-6.10) 10^6/uL Hgb 15.2 (14.0-18.0) g/dL Hct 43.5 (42.0-54.0) % MCV 86.7 (80.0-94.0) fL MCH 30.3 (25.9-34.0) pg MCHC 34.9 (29.9-35.2) g/dL RDW 12.8 (11.0-15.0) % Plt Count 280 (150-450) 10^3/uL MPV 10.0 (9.5-13.5) fL Neut % (Auto) 55.6 (43.0-75.0) % Lymph % (Auto) 34.0 (20.5-60.0) % [place] % (Auto) 8.3 (1.7-12.0) % Eos % (Auto) 0.8 L (0.9-7.0) % Baso % (Auto) 0.7 (0.2-2.0) % Neut # (Auto) 4.0 (1.4-6.5) 10^3/uL Lymph # (Auto) 2.5 (1.2-3.8) 10^3/uL [place] # (Auto) 0.6 (0.3-0.8) 10^3/uL Eos # (Auto) 0.1 (0.0-0.7) 10^3/uL Baso # (Auto) 0.1 (0.0-0.1) 10^3/uL Abs Immat Gran (auto) 0.04 H (0.00-0.03) 10^3/uL Imm/Tot Granulo (auto) 0.6 H (0.0-0.5) % PT 9.8 (9.0-11.6) sec INR <0.93 APTT 29.2 (22.3-36.2) sec D-Dimer 0.30 (<=0.59) mg/L FEU VBG pH 7.526 H (7.330-7.430) VBG pCO2 24.5 L (40.0-52.0) mmHg Sodium 140 (136-145) mmol/L Potassium 3.7 (3.5-5.1) mmol/L Chloride 106 (98-107) mmol/L Carbon Dioxide 20.2 L (21.0-32.0) mmol/L Anion Gap 17.5 BUN 12.0 (7.0-18.0) mg/dL Creatinine 1.01 (0.70-1.30) mg/dL Est GFR ( Amer) >60 (>=60) Est GFR (Non-Af Amer) >60 (>=60) BUN/Creatinine Ratio 11.9 Glucose 101 (74-106) mg/dL Calcium 9.2 (8.5-10.1) mg/dL Total Bilirubin 0.4 (0.2-1.0) mg/dL AST 16 (15-37) U/L ALT 31 (16-63) U/L Alkaline Phosphatase 93 (46-116) U/L Troponin I High Sens 4.7 (4.0-76.1) pg/mL NT-Pro-B Natriuret Pep 34.0 (<=450.0) pg/mL Total Protein 7.6 (6.4-8.2) g/dL Albumin 3.8 (3.4-5.0) g/dL Globulin 3.8 g/dL Albumin/Globulin Ratio 1.0 Imaging Data Chest x-ray: Attestation: I have reviewed the pertinent imaging results. Radiologist's impression: ITS Impressions Chest X-Ray 12/31/23 14:45 IMPRESSION: 1. No acute cardiopulmonary process. Stable chest. Electronically authenticated by: JUMANA DEE Date: 12/31/2023 15:28 ECG Data Attestation: I personally reviewed and interpreted this ECG as follows: (Normal sinus rhythm at a rate of [address] elevation or ectopy. EKG reviewed by attending physician) Discharge Plan Discharge Stand Alone Forms: Portal Instructions Chief Complaint: Shortness of Breath/Dyspnea Clinical Impression: Chest pain, Shortness of breath Patient Disposition: Home, Self-Care Time of Disposition Decision: 15:33 Condition: Good Prescriptions / Home Meds: New naproxen sodium 550 mg tablet 550 mg PO BID PRN (Reason: pain) Qty: 10 0RF No Action fluoxetine [Prozac] 10 mg capsule 10 mg PO DAILY bupropion HCl [Wellbutrin XL] 300 mg tablet extended release 24 hr 300 mg PO DAILY hydroxyzine HCl 25 mg tablet 25 mg PO Q8H PRN (Reason: itching) trazodone 50 mg tablet 150 mg PO .qhs Vraylar 1.5 mg capsule 1.5 mg PO DAILY benztropine 0.5 mg tablet 0.5 mg PO Patient Comments: started today hyoscyamine sulfate [Levsin] 0.125 mg tablet 0.125 mg PO Q6H PRN (Reason: abdominal pain) Qty: 12 0RF ondansetron 4 mg tablet,disintegrating 4 mg PO Q6H PRN (Reason: nausea and vomiting) Qty: 12 0RF Print Language: Vietnamese Instructions: Noncardiac Chest Pain (ED), Shortness of Breath (ED) Referrals: Physician,Non-Staff, MD [Primary Care Provider] - 1 week
[2023-12-31 14:10] LABS: Basophils Absolute Auto 0.1 10^3/uL (0.0-0.1); Basophils Percent Auto 0.7 % (0.2-2.0); Eosinophils Absolute Auto 0.1 10^3/uL (0.0-0.7); Eosinophils Percent Auto 0.8 % (0.9-7.0); Hematocrit 43.5 % (42.0-54.0); Hemoglobin 15.2 g/dL (14.0-18.0); Immature Granulocytes Abs Auto 0.04 10^3/uL (0.00-0.03); Immature Granulocytes Pct Auto 0.6 % (0.0-0.5); Lymphocytes Absolute Auto 2.5 10^3/uL (1.2-3.8); Mean Corpuscular HGB Conc 34.9 g/dL (29.9-35.2); Mean Corpuscular Hemoglobin 30.3 pg (25.9-34.0); Mean Corpuscular Volume 86.7 fL (80.0-94.0); Monocytes Absolute Auto 0.6 10^3/uL (0.3-0.8); Monocytes Percent Auto 8.3 % (1.7-12.0); Neutrophils Percent Auto 55.6 % (43.0-75.0); Platelet Count 280 10^3/uL (150-450); Red Blood Count 5.02 10^6/uL (4.70-6.10); Red Cell Distribution Width 12.8 % (11.0-15.0); White Blood Count 7.3 10^3/uL (4.0-11.0)
[2023-12-31 14:14] LABS: PCO2 VBG 24.5 mmHg (40.0-52.0); pH VBG 7.526 (7.330-7.430)
[2023-12-31] MEDS: 0.9 % SODIUM CHLORIDE 1,000 ML 1000 ML IV (14:14)
[2023-12-31] MEDS: KETOROLAC TROMETHAMINE 30 MG/ML VIAL IVP (14:14)
[2023-12-31 14:37] LABS: Alanine Aminotransferase 31 U/L (16-63); Albumin Level 3.8 g/dL (3.4-5.0); Alkaline Phosphatase 93 U/L (46-116); Anion Gap 17.5; Aspartate Amino Transferase 16 U/L (15-37); BUN Creatinine Ratio 11.9; Bilirubin Total 0.4 mg/dL (0.2-1.0); Calcium 9.2 mg/dL (8.5-10.1); Carbon Dioxide 20.2 mmol/L (21.0-32.0); Chloride 106 mmol/L (98-107); Estimated GFR (African America >60 (>=60); Estimated GFR (Non-African Ame >60 (>=60); Globulin 3.8 g/dL; Glucose 101 mg/dL (74-106); Partial Thromboplastin Time 29.2 sec (22.3-36.2); Potassium 3.7 mmol/L (3.5-5.1); Prothrombin Time 9.8 sec (9.0-11.6); Sodium 140 mmol/L (136-145); Total Protein 7.6 g/dL (6.4-8.2); Troponin I High Sensitivity 4.7 pg/mL (4.0-76.1)
[2023-12-31 14:40] LABS: INR <0.93
--- NOTE | 2023-12-31 14:45 | XR_ITS ---
The [address] [address] Patient Name: SARAH REA MRN: [id number] date: 1985 Sex: M Assigned Patient Location: ER Current Patient Location: ER Accession/Order Number: [id number] Exam Date: 12/31/2023 14:55 Report Date: 12/31/2023 15:28 At the request of: YOVANA KNOX Procedure: XR chest 1V EXAMINATION: XR chest 1V HISTORY: shortness of breath COMPARISON: XR chest 05/26/2023 FINDINGS: LUNGS: No significant pulmonary parenchymal abnormalities. VASCULATURE: No increased pulmonary vasculature. PLEURA: No pneumothorax, effusion, or pleural thickening. CARDIAC: No cardiomegaly or cardiac silhouette abnormality. MEDIASTINUM: No visible mass or adenopathy. BONES: No fracture or visible bone lesion. OTHER: Negative. XR/XR chest 1V IMPRESSION: 1. No acute cardiopulmonary process. Stable chest. Electronically authenticated by: JUMANA DEE Date: 12/31/2023 15:28
== END 2023-12-31 15:46 | disposition home or self-care (01) ==
PROVIDERS: Physician Assistant; Emergency Provider Emergency Medicine
DX: R07.9 Chest pain, unspecified (principal); R06.02 Shortness of breath; F17.200 Nicotine dependence, unspecified, uncomplicated
CPT/HCPCS: 36415; 71045; 80053; 82800; 83880; 84484; 85025; 85378; 85610; 85730; 93005; 96361; 96374; 99285

== ENCOUNTER 2024-04-24 20:55 | Emergency (ER) | payer BC, SELFPAY ==
[2024-04-24 21:00] VITALS: BP 177/107; PULSE 93; TEMP 36.7; O2SAT 99; BMI 35.9
--- OUTSIDE RECORDS SUMMARY | 2024-04-24 21:01 | XMS_ITS | CCD ---
Author Organization [facility] Care Team Providers Care Casing Tester Name Role Phone NONE, XXXX Primary Care Physician Unavailab le REQUEST, NONE LISTED Primary Care Unavailrick HENDERSON, DR LEE Admitting Unavailable SANTIAGO, DR LEE Attending Unavailable SANTIAGO, DR LEE Consulting Unavailable SANIYA MATOS Consulting Unavailable REQUEST, DR SALAMANCA LISTED Primary Care Unavaila OMID Mcgee Admitting Unavailable MEGHANA KNOX Consulting Unavailable OMID MENON Attending Unavailable LILA JEFFREY Consulting Unavailable EMELY HONEYCUTT Admitting Unavailable REQUEST, DR SALAMANCA LISTED Primary Care Unavaila EMELY Russo Attending Unavailable EMELY HONEYCUTT Consulting Unavailable Melody Smith Unavailable BAYLEE Smith Attending Provider NO FAMILY, PHYSICIAN Primary Care Provider Unava ilable Hazel Harden Unavailable Silvia Mckeon Primary Care Provid er SILVIA EASTON Attending Unavailable SILVIA EASTON Referring Unavailable SILVIA EASTON Primary Care Unavailable SILVIA EASTON Attending Unavailable SILVIA EASTON Referring Unavailable SILVIA EASTON Primary Care Unavailable NO FAMILY, PHYSICIAN Primary Care Provider Unava ilMD Girma Lundberg Attending Provider Melody Smith Attending Unavailable Melody Smith Admitting Unavailable NO FAMILY, PHYSICIAN Primary Care Unavailable NO FAMILY, PHYSICIAN Primary Care Unavailable Girma Arizmendi Attending Unavailab le Girma Arizmendi Admitting Unavailab le Allergies Allergy Classification Reported Allergen(s) Allergy Type Date of Onset Reaction(s) Facility (1 source) No Known Medication Allergies; Translations: [No Known Medication Allergies] Propensity to adverse reactions (disorder) [facility] Medications Current Medications Medication Drug Class(es) Dates Sig (Normalized) Sig (Original) Acetaminophen (3 sources) Tylenol Active ARIPiprazole 10 mg oral tablet (3 sources) Atypical Antipsychotic Start: 08-18-2023 take 1 tablet by mouth in the morning ARIPiprazole (ABILIFY) 10 mg tablet Indications: Bipolar disorder, current episode manic without psychotic features, severe (CMS-HCC) Take 1 tablet (10 mg total) by mouth in the morning. 0 08/18/2023 Active Start: 07-14-2023 End: 08-18-2023 take 1 tablet by mouth in the morning ARIPiprazole (ABILIFY) 5 mg tablet Indications: Bipolar disorder, current episode manic without psychotic features, severe (CMS-HCC) Take 1 tablet (5 mg total) by mouth in the morning. 30 tablet 3 07/14/2023 08/18/2023 Discontinued (Reorder) benztropine mesylate 0.5 mg oral tablet (1 source) Anticholinergic, Antihistamine Start: 10-29-2023 Benztropine Active MG PO October 29, 2023 12:00am 24 hr buPROPion hydrochloride 300 mg extended release oral tablet (8 sources) Aminoketone Start: 06-09-2023 take 1 tablet by mouth every twenty-four hours in the morning buPROPion XL (WELLBUTRIN XL) 300 mg 24 hr tablet Indications: Bipolar disorder, current episode manic without psychotic features, severe (CMS-HCC) Take 1 tablet (300 mg total) by mouth in the morning. 30 tablet 2 06/09/2023 Active Start: 02-10-2022 Wellbutrin XL Oral, q24hr, Refills(s) 0 Start Date: 02/10/22 Status: Ordered take 1 tablet by baltazar th every twenty-four hours Wellbutrin XL 300 MG 1 tablet in the morning Orally Once a day Active busPIRone hydrochloride 5 mg oral tablet (2 sources) Start: 06-24-2023 take 1 tablet by mouth twice daily busPIRone (BUSPAR) 5 mg tablet take 1 tablet by mouth twice a day 0 06/24/2023 Active cephalexin 500 mg oral capsule (2 sources) Cephalosporin Antibacterial Start: 03-18-2022 End: 03-23-2022 take 1 capsule by mouth twice daily at mealtime Keflex 500 mg Cap 500 mg = 1 cap(s), Oral, BID, Start with first meal after procedure, X 5 day(s), # 10 cap(s), Refills(s) 0, Pharmacy: [id number], 177, cm, 03/18/22 13:43:00 EDT, Height/Length Dosing, 135, kg, 03/18/22 13:43:00 EDT, Weight Dosing Start Date: 03/18/22 Stop Date: 03/23/22 Status: Ordered dextromethorphan hydrobromide 15 mg / guaiFENesin 400 mg / pseudoephedrine hydrochloride 60 mg oral tablet (1 source) alpha-Adrenergic Agonist, Uncompetitive W-uagunf-N-aspartat e Receptor Antagonist, Sigma-1 Agonist Start: 03-29-2024 take 4 tablets by mouth every twenty-four hours Pseudoephedrine -Dm-Guaifenesin (Capmist Dm) 60-15-400 mg tablet Active 1 TAB PO EVERY 4-6 HOURS March 29, 2024 12:00am do not exceed 4 doses per 24 hrs FLUoxetine 10 mg oral capsule (9 sources) Serotonin Reuptake Inhibitor Start: 03-29-2024 take 1 capsule by mouth twice daily in the morning Fluoxetine (Prozac) 10 mg capsule Active 10 MG PO Twice daily March 29, 2024 12:00am administer in the morning and at noon/midday Start: 07-14-2023 take 1 capsule by [facility] in the morning FLUoxetine (PROzac) 40 mg capsule Indications: Bipolar disorder, current episode manic without psychotic features, severe (CMS-HCC) Take 1 capsule (40 mg total) by mouth in the morning. 30 capsule 3 07/14/2023 Active Start: 02-10-2022 take 1 mg by mouth once daily Prozac 40 mg Cap mg cap(s), Oral, Daily, Refills(s) 0 Start Date: 02/10/22 Status: Ordered Ibuprofen (3 sources) Nonsteroidal Anti-inflammatory Drug Advil Active Remeron (6 sources) Start: 02-10-2022 Remeron Oral, Once a day (at bedtime), Refills(s) 0 Start Date: 02/10/22 Status: Ordered Remeron Active Remeron Not-Taki ng microencapsulated potassium chloride 10 meq extended release oral tablet (2 sources) Start: 06-09-2023 take 1 tablet by mouth in the morning potassium chloride (KLOR-CON M 10) 10 MEQ CR tablet Indications: Hypokalemia Take 1 tablet (10 mEq total) by mouth in the morning. 30 tablet 3 06/09/2023 Active QUEtiapine 100 mg oral tablet (2 sources) Atypical Antipsychotic Start: 06-09-2023 take 1 tablet by mouth once daily QUEtiapine (SeroqueL) 100 mg tablet Indications: Bipolar disorder, current episode manic without psychotic features, severe (CMS-HCC) Take 1 tablet (100 mg total) by mouth nightly. 30 tablet 2 06/09/2023 Active traZODone hydrochloride 50 mg oral tablet (2 sources) Serotonin Reuptake Inhibitor Start: 06-24-2023 take 1 tablet by mouth at bedtime traZODone (DESYREL) 50 mg tablet take 1 tablet by mouth at bedtime if needed 0 06/24/2023 Active Completed/Discontinued Medications Medication Drug Class(es) Dates Sig (Normalized) Sig (Original) triamcinolone acetonide 40 mg/ml injectable suspension (1 source) Corticosteroid Start: 05-27-2023 Kenalog-40 May, 10 mg Problems Active Problems Problem Classification Problem Date Documented Date Episodic/Chronic Contraceptive and procreative management (1 source) Sterilization requested; Translations: [Encounter for sterilization] Onset: 2 Episodic Mood disorders (2 sources) Severe manic bipolar I disorder without psychotic features; Translations: [Bipolar disorder, current episode manic without psychotic features, severe] Onset: 3 08-18-2023 Chronic Other connective tissue disease (1 source) Other enthesopathies, not elsewhere classified Episodic Other connective tissue disease (1 source) Pain in left finger(s) Episodic Sprains and strains (2 sources) Sprain of metacarpophalangeal joint of left thumb, initial encounter; Translations: [Sprain of metacarpophalangeal joint of left thumb, subsequent encounter] Episodic Substance-related disorders (4 sources) Smoker; Translations: [Nicotine dependence, cigarettes, uncomplicated] Onset: 2 02-10-2022 Chronic Comment on above: Added secondary to d ocumentation in Social History. Unclassified (3 sources) Patient encounter status 03-18-2022 Unclassified (1 source) Manic Behavior Onset: 4 Unclassified (1 source) bipolar Onset: 3 Unclassified (1 source) Sprain of metacarpophalangeal joint of left thumb, subsequent encounter; Translations: [Sprain of metacarpophalangeal joint of left thumb, subsequent encounter] Onset: 3 Viral infection (2 sources) Filiform wart; Translations: [Viral wart, unspecified] Onset: 4 08-18-2023 Episodic Past or Other Problems Problem Classification Problem Date Documented Date Episodic/Chronic Mood disorders (2 sources) Mood disorders Onset: 07-14-2023 Resolved: 08-18-2023 07-14-2023 Other aftercare (1 source) Other lobsterman (current) drug therapy; Translations: [OTH 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 SHIPPING CLERK CURRENT DRUG THERAPY] Onset: 04-01-2022 Episodic Other male genital disorders (4 sources) Other specified disorders of the male genital organs; Translations: [OTHER SPEC D/O MALE GENITAL ORGANS] Onset: 03-31-2022 Episodic Other male genital disorders (3 sources) Right testicular pain; Translations: [RIGHT TESTICULAR PAIN] Onset: 03-20-2022 Episodic Other male genital disorders (1 source) Scrotal pain; Translations: [SCROTAL PAIN] Onset: 03-24-2022 Episodic Other nervous system disorders (1 source) Other acute postprocedural pain; Translations: [OTHER ACUTE POSTPROCEDURAL PAIN] Onset: 03-24-2022 Episodic Other non-traumatic joint disorders (4 sources) Pain in right knee; Translations: [PAIN IN RIGHT KNEE] Onset: 03-01-2022 Episodic Residual codes; unclassified (1 source) Other specified postprocedural states; Translations: [OTH SPECIFIED POSTPROCEDURAL STATES] Onset: 04-01-2022 Episodic Unclassified (2 sources) Onset: 07-14-2023 Resolved: 08-18-2023 07-14-2023 Results Test Name Value Interpretation Reference Range Facility MR hand LT wo conon 05-15-20 MR hand LT wo con [facility] Main [address] [address] MRI Report Signed Patient: Lele Norwood MR#: [id number] 9 : 1985 Acct:[id number] Age/Sex: 37 / M ADM Date: 05/14/23 Loc: [facility] Room: Type: [facility] Attending Dr: Melody Smith NP-C Copies to: ESME Gr Ordering Provider: ESME Gr Date of Service: 05/14/23 MR/MR hand LT wo con: Sprain of metacarpophalangeal joint of left thumb, subsequen MRI left ankle without contrast Technique routine HISTORY: Hyperextension of the LEFT thumb. Pain involving the LEFT 1st metacarpal region. Onset January. Sprain of the metacarpal phalangeal joint of the thumb. No bone marrow edema. No fracture. There is a focal region of edema surrounding the flexor pollicis longus at the level of the metacarpal phalangeal articulation. This likely represents a tenosynovitis. The volar plate at the 1st metacarpophalangeal articulation appears intact. The collateral ligaments at the 1st metacarpal phalangeal joint are intact. Small joint effusion of the 1st of metacarpal phalangeal articulation. The volar plate and collateral ligaments of the 1st interphalangeal joint intact.. The remaining digits are intact. MR/MR hand LT wo con IMPRESSION: tenosynovitis involving the flexor pollicis longus at the metacarpal phalangeal articulation. Intact collateral ligaments of the 1st carpometacarpal articulation. Impression dictated by: Donta Alvares M.D.05/18/2023 9:25 AM Dictation Location: [place] [address] Transcribed By: [facility] 05/18/2325 Dictated By: Donta Alvares DO 05/15/23 0851 Signed By: 10/23/23 0925 Normal [facility] XR hand LT min 3V*on 023 XR hand LT min 3V* [facility] [employer] Other XR hand LT min 3V* [facility] [employer] Other XR hand LT min 3V* [facility] Other XR hand LT min 3V* [place] [id number] [employer] Other XR hand LT min 3V* XRay Report [employer] Other XR hand LT min 3V* Signed [employer] Other XR hand LT min 3V* Patient: Lele Norwood MR#: [id number] [facility] Other XR hand LT min 3V* 9 [employer] Other XR hand LT min 3V* : 1985 Acct:[id number] [employer] Other XR hand LT min 3V* Age/Sex: 37 / M ADM Date: 02/16/23 [employer] Other XR hand LT min 3V* Loc: [facility] Room: Type: [facility] [employer] Other XR hand LT min 3V* Attending Dr: Melody BEACH [employer] Other XR hand LT min 3V* Copies to: ESME Gr [employer] Other XR hand LT min 3V* Ordering Provider: ESME Gr [employer] Other XR hand LT min 3V* Date of Service: 02/16/23 [employer] Other XR hand LT min 3V* XR/XR hand LT min 3V*: S69.92XA [employer] Other XR hand LT min 3V* 4 views LEFT hand plain film [employer] Other XR hand LT min 3V* COMPARISON: None [employer] Other XR hand LT min 3V* HISTORY: Hyperextension of the thumb. [employer] Other XR hand LT min 3V* ACUTE FINDINGS: None [employer] Other XR hand LT min 3V* DEGENERATIVE CHANGE: Unremarkable [employer] Other XR hand LT min 3V* SOFT TISSUE FINDINGS: Unremarkable [employer] Other XR hand LT min 3V* JOINT EFFUSION: None [employer] Other XR hand LT min 3V* POSTOP CHANGES: None [employer] Other XR hand LT min 3V* BONY MINERALIZATION: Adequate [employer] Other XR hand LT min 3V* XR/XR hand LT min 3V* [employer] Other XR hand LT min 3V* IMPRESSION: No acute findings [employer] Other XR hand LT min 3V* Impression dictated by: Donta Alvares M.D.02/16/2023 3:57 PM [employer] Other XR hand LT min 3V* Dictation Location: [place] [address] [employer] Other XR hand LT min 3V* Transcribed By: MIGUELINA 02/16/23 [facility]7 [employer] Other XR hand LT min 3V* Dictated By: Donta Alvares DO 02/16/23 1545 [employer] Other XR hand LT min 3V* Signed By: [employer] Other XR hand LT min 3V* 02/16/23 0605 [facility] [employer] Other ER URINE PROFILEon 2 Bilirubin Ql (U) Negative Normal NEGATIVE [facility] Comment on above: Performed By: #### E RUR #### [facility] [address] [place] [address] Dr. Sailaja Barillas Clarity (U) CLEAR Normal CLEAR [facility] Comment on above: Performed By: #### E RUR #### [facility] [address] [place] [address] Dr. Sailaja Barillas Color (U) LT. YELLOW Normal YELLOW [facility] Comment on above: Performed By: #### E RUR #### [facility] [address] [place] [address] Dr. Sailaja SWANSON A micrscopic examina tion will be performed if indicated. Normal The [facility] Comment on above: Performed By: #### E RUR #### [facility] [address] [place] [address] Dr. Sailaja Barillas Glucose Ql (U) Negative Normal NEGATIVE [facility] Comment on above: Performed By: #### E RUR #### [facility] [address] [place] [address] Dr. Sailaja Barillas Hemoglobin Ql (U) Negative Normal NEGATIVE [facility] Comment on above: Performed By: #### E RUR #### [facility] [address] [place] [address] Dr. Sailaja Barillas Ketones Ql (U) Negative Normal NEGATIVE [facility] Comment on above: Performed By: #### E RUR #### [facility] [address] [place] [address] Dr. Sailaja Barillas LEUKOCYTES Negative Normal NEGATIVE [facility] Comment on above: Performed By: #### E RUR #### [facility] [address] [place] [address] Dr. Sailaja Barillas Nitrite Ql (U) Negative Normal NEGATIVE [facility] Comment on above: Performed By: #### E RUR #### [facility] [address] [place] [address] Dr. Sailaja Barillas pH (U) 7.0 [pH] Normal 5-9 The [facility] Comment on above: Performed By: #### E RUR #### [facility] [address] [place] [address] Dr. Sailaja Barillas SPEC GRAVITY 1.015 Normal 1.005-<=1.025 [facility] Comment on above: Performed By: #### E RUR #### [facility] [address] [place] [address] Dr. Sailaja Barillas UA PROTEIN Negative Normal NEGATIVE/ TRACE The [facility] Comment on above: Performed By: #### E RUR #### [facility] [address] [place] [address] Dr. Sailaja Barillas UR MICRO IND NOT INDICATED Normal [facility] Comment on above: Performed By: #### E RUR #### [facility] [address] [place] [address] Dr. Sailaja Barillas Urobilinogen Qn (U) 0.2 {Gael'U}/dL Normal 0.2 - 1.0 [facility] Comment on above: Performed By: #### E RUR #### [facility] [address] [place] [address] Dr. Sailaja Barillas CBC AUTO DIFFon 03-20-2022 BASO # 0.1 103/ul Normal 0.0-0.1 The [facility] Comment on above: Performed By: #### C BC #### [facility] [address] [place] [address] Dr. Sailaja Barillas Basophils/100 WBC (Bld) 0.7 % Normal 0.2-2.0 The [facility] Comment on above: Performed By: #### C BC #### [facility] [address] [place] [address] Dr. Sailaja Barillas EO # 0.1 103/ul Normal 0.0-0.7 The [facility] Comment on above: Performed By: #### C BC #### [facility] [address] [place] [address] Dr. Sailaja Barillas Eosinophils/100 WBC (Bld) 0.9 % Normal 0.9-7.0 [facility] Comment on above: Performed By: #### C BC #### [facility] [address] [place] [address] Dr. Sailaja Barillas Erythrocyte distribution width (RBC) [Ratio] 12.9 % Normal 11.0-15.0 [facility] Comment on above: Performed By: #### C BC #### [facility] [address] [place] [address] Dr. Sailaja Barillas Hematocrit (Bld) [Volume fraction] 39.4 % Critically low 42.0-54.0 [facility] Comment on above: Performed By: #### C BC #### [facility] [address] [place] [address] Dr. Sailaja Barillas Hemoglobin (Bld) [Mass/Vol] 13.5 g/dL Critically low 14.0-18.0 [facility] Comment on above: Performed By: #### C BC #### [facility] [address] [place] [address] Dr. Sailaja Barillas IG # 0.03 10e3/ul Normal 0.00-0.03 [facility] Comment on above: Performed By: #### C BC #### [facility] [address] [place] [address] Dr. Sailaja Barillas IG % 0.3 % Normal 0.0-0.5 [facility] Comment on above: Performed By: #### C BC #### [facility] [address] [place] [address] Dr. Sailaja Barillas LYMPH # 2.6 103/ul Normal 1.2-3.8 The [facility] Comment on above: Performed By: #### C BC #### [facility] [address] [place] [address] Dr. Sailaja Barillas Lymphocytes/100 WBC (Bld) 29.4 % Normal 20.5-60.0 [facility] Comment on above: Performed By: #### C BC #### [facility] [address] [place] [address] Dr. Sailaja Barillas MANUAL DIFF REQ NO Normal [facility] Comment on above: Performed By: #### C BC #### [facility] [address] [place] [address] Dr. Sailaja Barillas MCH (RBC) [Entitic mass] 30.4 pg Normal 25.9-34.0 [facility] Comment on above: Performed By: #### C BC #### [facility] [address] [place] [address] Dr. Sailaja Barillas MCHC (RBC) [Mass/Vol] 34.3 g/dL Normal 29.9-35.2 [facility] Comment on above: Performed By: #### C BC #### [facility] [address] [place] [address] Dr. Sailaja Barillas MCV (RBC) [Entitic vol] 88.7 fL Normal 80.0-94.0 [facility] Comment on above: Performed By: #### C BC #### [facility] [address] [place] [address] Dr. Sailaja Barillas MONO # 0.7 103/ul Normal 0.3-0.8 [facility] Comment on above: Performed By: #### C BC #### [facility] [address] [place] [address] Dr. Sailaja Barillas Monocytes/100 WBC (Bld) 8.4 % Normal 1.7-12.0 [facility] Comment on above: Performed By: #### C BC #### [facility] [address] [place] [address] Dr. Sailaja Barillas NEUT # 5.3 103/ul Normal 1.4-6.5 The [facility] Comment on above: Performed By: #### C BC #### [facility] [address] [place] [address] Dr. Sailaja Barillas Neutrophils/100 WBC (Bld) 60.3 % Normal 43.0-75.0 [facility] Comment on above: Performed By: #### C BC #### [facility] [address] [place] [address] Dr. Sailaja Barillas Platelet mean volume (Bld) [Entitic vol] 9.6 fL Normal 9.5-13.5 [facility] Comment on above: Performed By: #### C BC #### [facility] [address] [place] [address] Dr. Sailaja Barillas PLT 242 103/ul Normal 150-450 [facility] Comment on above: Performed By: #### C BC #### [facility] [address] [place] [address] Dr. Sailaja Barillas RBC 4.44 106/ul Critically low 4.70-6.10 [facility] Comment on above: Performed By: #### C BC #### [facility] [address] [place] [address] Dr. Sailaja Barillas WBC 8.8 103/ul Normal 4.0-11.0 [facility] Comment on above: Performed By: #### C BC #### [facility] [address] [place] [address] Dr. Sailaja Barillas ER URINE PROFILEon 2 Bilirubin Ql (U) Negative Normal NEGATIVE [facility] Comment on above: Performed By: #### E RUR #### [facility] [address] [place] [address] Dr. Sailaja Barillas Clarity (U) CLEAR Normal CLEAR [facility] Comment on above: Performed By: #### E RUR #### [facility] [address] [place] [address] Dr. Sailaja Barillas Color (U) YELLOW Normal YELLOW The [facility] Comment on above: Performed By: #### E RUR #### [facility] [address] [place] [address] Dr. Sailaja Barillas ERUAHD A micrscopic examina tion will be performed if indicated. Normal The [facility] Comment on above: Performed By: #### E RUR #### [facility] [address] [place] [address] Dr. Sailaja Barillas Glucose Ql (U) Negative Normal NEGATIVE The [facility] Comment on above: Performed By: #### E RUR #### [facility] [address] [place], [place] [id number] Dr. Sailaja Barlilas Hemoglobin Ql (U) Negative Normal NEGATIVE [facility] Comment on above: Performed By: #### E RUR #### [facility] [address] [place] [address] Dr. Sailaja Barillas Ketones Ql (U) Negative Normal NEGATIVE [facility] Comment on above: Performed By: #### E RUR #### [facility] [address] [place] [address] Dr. Sailaja Barillas LEUKOCYTES Negative Normal NEGATIVE [facility] Comment on above: Performed By: #### E RUR #### [facility] [address] [place] [address] Dr. Sailaja Barillas Nitrite Ql (U) Negative Normal NEGATIVE [facility] Comment on above: Performed By: #### E RUR #### [facility] [address] [place] [address] Dr. Sailaja Barillas pH (U) 5.5 [pH] Normal 5-9 [facility] Comment on above: Performed By: #### E RUR #### [facility] [address] [place] [address] Dr. Sailaja Barillas SPEC GRAVITY 1.025 Normal 1.005-<=1.025 [facility] Comment on above: Performed By: #### E RUR #### [facility] [address] [place] [address] Dr. Sailaja Barillas UA PROTEIN Negative Normal NEGATIVE/ TRACE The [facility] Comment on above: Performed By: #### E RUR #### [facility] [address] [place] [address] Dr. Sailaja Barillas UR MICRO IND NOT INDICATED Normal The [facility] Comment on above: Performed By: #### E RUR #### [facility] [address] [place] [address] Dr. Sailaja Barillas Urobilinogen Qn (U) 0.2 {Gael'U}/dL Normal 0.2 - 1.0 [facility] Comment on above: Performed By: #### E RUR #### [facility] [address] [place] [address] Dr. Sailaja Barillas PROF CHEM 8 (BAS METB)on Anion gap [Moles/Vol] 11.1 mmol/L Normal [facility] Comment on above: Performed By: #### B MP #### [facility] [address] [address] [address] Sailaja Barillas Calcium [Mass/Vol] 8.5 mg/dL Normal 8.5-10.1 The [facility] Comment on above: Performed By: #### B MP #### [facility] [address] [address] [address] Sailaja Barillas Chloride [Moles/Vol] 106 mmol/L Normal 98-107 The [facility] Comment on above: Performed By: #### B MP #### [facility] [address] [address] [address] Sailaja Barillas CO2 [Moles/Vol] 26.8 mmol/L Normal 21.0-32.0 The [facility] Comment on above: Performed By: #### B MP #### [facility] [address] [address] [address] Sailaja Barillas Creatinine [Mass/Vol] 0.97 mg/dL Normal 0.70-1.30 The [facility] Comment on above: Performed By: #### B MP #### [facility] [address] [address] [address] Sailaja Barillas EGFR-AF TRINIDADIAN >60 Normal >=60 The [facility] Comment on above: Performed By: #### B MP #### [facility] [address] [address] [address] Sailaja Barillas EGFR-NON AF TRINIDADIAN >60 Normal >=60 The [facility] Comment on above: Performed By: #### B MP #### [facility] [address] [address] [address] Sailaja Barillas Glucose [Mass/Vol] 102 mg/dL Normal 74-106 The [facility] Comment on above: Performed By: #### B MP #### [facility] [address] [address] [address] Sailaja Barillas Potassium [Moles/Vol] 3.9 mmol/L Normal 3.5-5.1 [facility] Comment on above: Performed By: #### B MP #### [facility] [address] [address] [address] Sailaja Barillas Sodium [Moles/Vol] 140 mmol/L Normal 136-145 [facility] Comment on above: Performed By: #### B MP #### [facility] [address] [address] [address] Sailaja Barillas Urea nitrogen [Mass/Vol] 10.0 mg/dL Normal 7.0-18.0 [facility] Comment on above: Performed By: #### B MP #### [facility] [address] [place] [address] Dr. Sailaja Barilals Urea nitrogen/Creatini ne [Mass ratio] 10.3 mg/mg Normal [facility] Comment on above: Performed By: #### B MP #### [facility] [address] [place] [address] Dr. Sailaja Barillas US SCROTUM W VASCULAR ORGANo n 03-20-2022 US SCROTUM W VASCULAR ORGAN EXAM: US SCROTUM W VASCULAR ORGAN HISTORY: Postoperative pain COMPARISON: None. TECHNIQUE: Alan scale imaging as well as color and duplex Doppler ultrasound examination of the scrotum and its contents were performed. FINDINGS: The testes are normal in size and echotexture without focal abnormality. The right testicle per cellophane worker although appears slightly more proximal within the scrotum. The right testis measures 4.6 x 3.2 x 2.0 cm. The left testis measures 3.7 x 3.2 x 2.7 cm. Duplex Doppler examination shows normal and symmetric intratesticular blood flow bilaterally. Slightly heterogeneous appearance of the right epididymal head with without significantly increased hyperemia. Left epididymal head cysts, 1.3 cm. [No varicocele. No significant hydrocele. The scrotal skin thickness is normal. IMPRESSION: 1. No acute intratesticular findings. 2. Slightly asymmetrically high position of the right testicle within the scrotum of undetermined significance. 3. Slightly heterogeneous right epididymis without hyperemia to definitively suggest epididymitis. Electronically authenticated by: LILA JEFFREY Date: 2022-03-20 18:55 Normal [facility] XR KNEE RT 4V or >on 022 XR KNEE RT 4V or > EXAM: XR KNEE RT 4V or > DATE: 03/01/2022 12:44 PM EDT INDICATION: Pain in right knee COMPARISON: 02/23/2020 TECHNIQUE: 4 views right knee FINDINGS: No acute fracture. Normal osseous alignment. Joint spaces are maintained on these nonweightbearing views. No osteophytes are identified. No knee joint effusion. Soft tissues are unremarkable. IMPRESSION: 1. No acute osseous abnormality. Electronically authenticated by: SANIYA MATOS Date: 2022-03-01 13:40 Normal [facility] Vital Signs Date Time Vital Sign Value Performing Clinician Facility 03-29-2024 09:08-0400 Body height 177.8 cm PHYSICIAN NO [facility] 03-29-2024 09:08-0400 Body mass index (BMI) [Ratio] 36.3 kg/m2 PHYSICIAN NO [facility] 03-29-2024 09:08-0400 Body temperature 97.7 [degF] PHYSICIAN NO [facility] 03-29-2024 09:08-0400 Body weight 114.98 kg PHYSICIAN NO [facility] 03-29-2024 09:08-0400 Diastolic blood pressure 82 mm[Hg] PHYSICIAN NO [facility] 03-29-2024 09:08-0400 Heart rate 79 /min PHYSICIAN NO [facility] 03-29-2024 09:08-0400 Respiratory rate 18 /min PHYSICIAN NO [facility] 03-29-2024 09:08-0400 SaO2% (BldA) [Mass fraction] 98 % PHYSICIAN NO [facility] 03-29-2024 09:08-0400 Systolic blood pressure 119 mm[Hg] PHYSICIAN NO [facility] 08-18-2023 10:56-0500 Body height 177.8 cm Silvia Easton APRNFiREappsABUNDIO Work Phone: [facility] [facility] 08-18-2023 10:56-0500 Body mass index (BMI) [Ratio] 38.48 kg/m2 Silvia Easton APRNFiREappsABUNDIO Work Phone: [employer] 08-18-2023 10:56-0500 Body temperature 97.81 [degF] Silvia Easton APRN-ORBITREAD OPERATOR Work Phone: [employer] 08-18-2023 10:56-0500 Body weight 121.66 kg Silvia Easton SURVEILLANCE INSPECTOR-ORBITREAD OPERATOR Work Phone: [employer] 08-18-2023 10:56-0500 Diastolic blood pressure 78 mm[Hg] Silvia Easton SURVEILLANCE INSPECTOR-ORBITREAD OPERATOR Work Phone: [employer] 08-18-2023 10:56-0500 Heart rate 83 /min Silvia Easton APRN-ORBITREAD OPERATOR Work Phone: [employer] 08-18-2023 10:56-0500 SaO2% (BldA) [Mass fraction] 93 % Silvia Easton APRN-ORBITREAD OPERATOR Work Phone: [employer] 08-18-2023 10:56-0500 Systolic blood pressure 120 mm[Hg] Silvia Easton APRN-ORBITREAD OPERATOR Work Phone: [employer] 02-16-2023 15:15-0400 Body height 177.8 cm Melody Smith Other [facility] Other 02-16-2023 15:15-0400 Body mass index (BMI) [Ratio] 34.15 kg/m2 Melody Smith Other [facility] Other 02-16-2023 15:15-0400 Body weight 107.96 kg Melody Smith Other [facility] Other 04-04-2022 10:10-0400 Respiratory rate 16 /min Keegan MIRZA [facility] 03-18-2022 13:34-0400 Blood Pressure Location Keegan MIRZA [facility] 03-18-2022 13:34-0400 Diastolic blood pressure 99 mm[Hg] Keegan MIRZA [facility] 03-18-2022 13:34-0400 Heart rate 83 /min Keegan MIRZA [facility] 03-18-2022 13:34-0400 Systolic blood pressure 158 mm[Hg] Keegan MIRZA [facility] Encounters Encounter Date Encounter Type Care Provider Facility Start: 04-14-2024 ambulatory PHYSICIAN NO [facility] Start: 03-29-2024 End: 03-29-2024 ambulatory PHYSICIAN NO [facility] Work Phone: Start: 03-29-2024 End: 03-29-2024 Patient encounter procedure PHYSICIAN WILL[facility] Physician [facility] Work Phone: Start: 02-18-2024 Registered Recurring PHYSICIAN WILLA [facility] Start: 12-31-2023 Non-patient / Non-visit PHYSICIAN WILLA [facility] Work Phone: Start: 08-18-2023 End: 08-18-2023 ambulatory [facility] Start: 08-18-2023 End: 08-18-2023 Office outpatient visit 15 minutes Silvia Easton SURVEILLANCE INSPECTOR-ORBITREAD OPERATOR Work Phone: [facility] Comment on above: Filiform wart (Prima ry Dx); Bipolar disorder, current episode manic without psychotic features, severe ([facility]) Start: 08-03-2023 Telephone encounter Tammie Kennedy MA [facility] Start: 07-14-2023 End: 07-14-2023 ambulatory SILVIA EASTON [facility] Start: 05-27-2023 End: 05-27-2023 ambulatory Hazel Harden Other [facility] Other Start: 05-27-2023 Office outpatient ne w 45 minutes Hazel Eppsalessio [facility] Start: 05-14-2023 End: 05-14-2023 Patient encounter procedure PHYSICIAN NO [facility] [address] Work Phone: Start: 05-14-2023 End: 05-14-2023 ambulatory PHYSICIAN NO [facility] Work Phone: Start: 03-10-2023 End: 03-10-2023 ambulatory Melody Smith Other [facility] Other Start: 03-10-2023 Office outpatient visit 15 minutes Melody Smith [facility] Start: 02-16-2023 End: 02-16-2023 Patient encounter procedure PHYSICIAN NO [facility] Start: 02-16-2023 End: 02-16-2023 ambulatory Melody Smith Other [facility] Other Start: 02-16-2023 Office outpatient ne w 30 minutes Melody Smith [facility] Start: 04-08-2022 ambulatory Facility:[facility] Start: 04-04-2022 End: 04-04-2022 Patient encounter procedure Keegan MIRZA [facility] Start: 03-31-2022 End: 03-31-2022 ambulatory EMELY HONEYCUTT Facility:[facility] Start: 03-20-2022 End: 03-20-[address] NONE LISTED REQUEST Facility:[facility] Start: 03-18-2022 End: 03-18-2022 Lab Drop off Keegan MIRZA [facility] Start: 03-18-2022 End: 03-18-2022 Patient encounter procedure Keegan MIRZA [facility] Start: 03-01-2022 End: 03-01-[address] NONE LISTED REQUEST Facility:[facility] Procedures Date Procedure Procedure Detail Performing Clinician Start: 08-18-2023 Adult depression screening assessment Silvia SEGOVIA Work Phone: Start: 07-14-2023 Adult depression screening assessment Tammie Love CMA Start: 02-16-2023 Plain X-ray of left hand PHYSICIAN NO FAMILY Start: 04-04-2022 H/O: vasectomy Keegan MIRZA Start: 03-18-2022 Vasectomy Keegan ZUNIGA Plan of Treatment Date Care Activity Detail Author Start: 05-12-2028 DTaP,Tdap and Td Vaccines (8 - Td or Tdap) DTaP,Tdap and Td Vaccines (8 - Td or Tdap) [facility] Start: 08-18-2024 Adult BMI Screening Adult BMI Screen ing [facility] Start: 08-18-2024 Depression Screening Depression Scre [facility] Start: 08-18-2024 Tobacco Screening Tobacco Screening [facility] Start: 07-14-2024 Adult BMI Follow Up Plan Adult BMI Follow Up Plan [facility] Start: 07-14-2024 Depression Screening Depression Scre ening [facility] Start: 07-14-2024 Tobacco Screening Tobacco Screening [facility] Start: 06-09-2024 Adult BMI Screening Adult BMI Screen ing [facility] Start: 08-18-2023 End: 08-18-2023 Patient encounter procedure 08/18/2023 11:00 AM EST Office Visit [facility] [address] [place] [address] Silvia Easton, SURVEILLANCE INSPECTOR-ORBITREAD OPERATOR [address] [place] [address] [facility] Start: 05-14-2023 MRI of left hand MR hand LT wo con F [facility] Start: 03-27-2023 COVID-19 Vaccine ( season) COVID-19 Vaccine ( season) [facility] Start: 03-27-2023 Influenza vaccination Influenza Vacc ine [facility] Immunizations Immunization Date Immunization Notes Care Provider Fa cility 02-28-2021 COVID-19 Vaccine, vector-nr, rS-Ad26, PF, 0.5mL Tammie Love [facility] 02-24-2021 SARS-CoV-2 (COVID-19 ) Ad26 vaccine, recombinant Keegan MIRZA [facility] 06-14-2020 Influenza, injectabl e, Madin Mirian Canine Kidney, preservative free, quadrivalent Tammiemabel Love [facility] 06-14-2020 pneumococcal polysaccharide vaccine, 23 valent Tammie Love [facility] 06-14-2020 influenza virus vaccine, unspecified formulation Tammie Love [facility] 05-12-2018 influenza, injectabl e, quadrivalent, preservative free Tammie Love [facility] 05-12-2018 tetanus toxoid, redu mey diphtheria toxoid, and acellular pertussis vaccine, adsorbed Tammie Love [facility] 01-05-2002 hepatitis B vaccine, pediatric or pediatric/adolescent dosage Tammie Love [facility] 04-23-2000 hepatitis B vaccine, pediatric or pediatric/adolescent dosage Tammie Love [facility] 02-20-2000 hepatitis B vaccine, pediatric or pediatric/adolescent dosage [facility] 02-20-2000 tetanus and diphther ia toxoids, adsorbed, preservative free, for adult use (2 Lf of tetanus toxoid and 2 Lf of diphtheria toxoid) [facility] 01-21-2000 hepatitis B vaccine, pediatric or pediatric/adolescent dosage [facility] 05-17-1993 measles, mumps and rubella virus vaccine [facility] 09-15-1990 diphtheria, tetanus toxoids and pertussis vaccine [facility] 09-15-1990 haemophilus influenz ae type b vaccine, conjugate unspecified formulation [facility] 09-15-1990 trivalent poliovirus vaccine, live, oral [facility] 01-31-1987 diphtheria, tetanus toxoids and pertussis vaccine [facility] 01-31-1987 measles, mumps and rubella virus vaccine [facility] 01-31-1987 trivalent poliovirus vaccine, live, oral [facility] 05-17-1986 diphtheria, tetanus toxoids and pertussis vaccine [facility] 03-15-1986 diphtheria, tetanus toxoids and pertussis vaccine [facility] 03-15-1986 trivalent poliovirus vaccine, live, oral [facility] 01-11-1986 diphtheria, tetanus toxoids and pertussis vaccine [facility] 01-11-1986 trivalent poliovirus vaccine, live, oral [facility] NEGATED: Highlighted row has not occurred!02-10-2022 SARS-CoV-2 mRNA (tocaseyeran 5y-11y) vaccine Keegan MIRZA [facility] Payers Date Payer Category Payer Self-pay 2022 [facility] [id number] 2022 Unknown ZAN MAURICIO SS (PPO) [id number] 2022-Present [phone] [address] [place] [address] [id number] 1985 Unknown [id number] 1985 Unknown [id number] 1985 Unknown [id number] 93 1985 Unknown [id number] 1985 Unknown [id number] 1959 Unknown [id number] 1959 Unknown [id number] 1959 Unknown [id number] Unknown [id number] 31 Unknown [id number] 31 Social History Date Type Detail Facility Start: 03-18-2022 Tobacco smoking status Light t obacco smoker (finding) [facility] Tobacco smoking status Smoker (finding) [facility] Start: 09-05-2020 End: 09-26-2020 Sex Assigned At Male [facility] Start: 04-04-2022 End: 05-07-2023 Tobacco smoking status Ex-smoker (finding) [facility] Start: 1985 Sex Assigned At Male F [facility] History of tobacco use Cigarette Smoker P Smile [facility] Start: 05-07-2023 Tobacco use and exposure Smoke less tobacco non-user [facility] Start: 07-14-2023 End: 08-18-2023 Alcohol intake Ex-drinker (finding) [facility] Start: 09-05-2020 End: 09-26-2020 History of Social function [facility] Frequency of Alcohol Consumption Never [facility] Start: 1985 Sex Assigned At Not on file P [facility] Functional Status Date Assessment Result Facility 04-04-2022 Functional Status N/A [facility] 03-18-2022 Functional Status N/A [facility] Clinical Notes 03-18-2022 to 08-18-2023 [facility] 08/18/2023 11:00 AM ESTTelephone Encounter - Tammie Love [facility] - 08/03/2023 11:52 AM ESTTelephone Encounter - Silvia Easton [facility] - 08/03/2023 11:52 AM EST Note Date & Type Note Facility 08-18-2023 History of Presen t illness Narrative Images from the original note were not included. [address] [facility] [address] SUBJECTIVE: Patient ID: Lele Norwood is a 37 y.o. male. Chief Complaint Patient presents with Manic Behavior States his moods have stabilized. Feels he is doing well with updated medication regimen. Is now being monitored by psychiatry and counseling. Plays [employer] and noticed his playing has improved. Enjoys luciano on video games. Additional concern today, he request referral to dermatology for wart removal on his neck. The following portions of the patient's history were reviewed and updated as appropriate: allergies, current medications, past family history, past medical history, past social history, past surgical history and problem list. Past Surgical History: Procedure Laterality Date VASECTOMY Past Medical History: Diagnosis Date Affective bipolar disorder ([facility]) Anxiety Depression Hemorrhoids Shortness of breath Immunization History Administered Date(s) Administered COVID-19 Vaccine, vector-nr, rS-Ad26, PF, 0.5mL 02/28/2021 DTP 01/11/1986, 03/15/1986, 05/17/1986, 01/31/1987, 09/15/1990 Hep B, Adolescent or Pediatric 01/21/2000, 02/20/2000, 04/23/2000, 01/05/2002 HiB 09/15/1990 Influenza, Injectable, Mdck, Preservative Free, Quad 06/14/2020 Influenza, Injectable, quadrivalent (PF) 05/12/2018 MMR 01/31/1987, 05/17/1993 OPV 01/11/1986, 03/15/1986, 01/31/1987, 09/15/1990 Pneumococcal Polysaccharide 06/14/2020 Td (adult), 2 Lf tetanus toxoid, preservative free, adsorbed 02/20/2000 Tdap 05/12/2018 REVIEW OF SYSTEMS: Review of Systems Constitutional: Negative for chills, fatigue and fever. HENT: Negative for hearing loss and trouble swallowing. Eyes: Negative for pain and visual disturbance. Respiratory: Negative for cough, chest tightness and shortness of breath. Cardiovascular: Negative for chest pain, palpitations and leg swelling. Gastrointestinal: Negative for blood in stool. Endocrine: Negative for polydipsia, polyphagia and polyuria. Genitourinary: Negative for difficulty urinating, dysuria, flank pain, hematuria, scrotal swelling and testicular pain. Musculoskeletal: Negative. Skin: Negative. Skin lesion on neck Allergic/Immunologic: Negative. Neurological: Negative for seizures, syncope and headaches. Hematological: Does not bruise/bleed easily. Psychiatric/Behavioral: Negative. PHYSICAL EXAMINATION: Vitals: 08/18/23 1056 BP: 120/78 BP Site: Left Arm BP Postition: Sitting Pulse: 83 Temp: 36.6 C (97.8 F) TempSrc: Tympanic SpO2: 93% Weight: 121.7 kg (268 lb 3.2 oz) Height: 177.8 cm (5' 10 ) Patient noted to have elevated BMI and the following intervention(s) were applied: encouragement to exercise. Physical Exam Vitals and nursing note reviewed. Constitutional: General: He is not in acute distress. Appearance: He is well-developed. HENT: Head: Normocephalic and atraumatic. Right Ear: Tympanic membrane and external ear normal. Left Ear: Tympanic membrane and external ear normal. Nose: Nose normal. Mouth/Throat: Mouth: Mucous membranes are moist. Pharynx: No oropharyngeal exudate. Eyes: General: No scleral icterus. Right eye: No discharge. Left eye: No discharge. Conjunctiva/sclera: Conjunctivae normal. Pupils: Pupils are equal, round, and reactive to light. Neck: Vascular: No JVD. Cardiovascular: Rate and Rhythm: Normal rate and regular rhythm. Heart sounds: Normal heart sounds. No murmur heard. No friction rub. No gallop. Pulmonary: Effort: Pulmonary effort is normal. No respiratory distress. Breath sounds: Normal breath sounds. Chest: Chest wall: No tenderness. Abdominal: General: Bowel sounds are normal. There is no distension. Palpations: Abdomen is soft. There is no mass. Tenderness: There is no abdominal tenderness. There is no guarding or rebound. Hernia: No hernia is present. Musculoskeletal: General: No tenderness. Normal range of motion. Cervical back: Normal range of motion and neck supple. Lymphadenopathy: Cervical: No cervical adenopathy. Skin: General: Skin is warm and dry. Capillary Refill: Capillary refill takes less than 2 seconds. Findings: Lesion present. No rash. Comments: Multiple large raised lesions on neck Neurological: Mental Status: He is alert and oriented to person, place, and time. Deep Tendon Reflexes: Reflexes are normal and symmetric. Psychiatric: Mood and Affect: Mood normal. Behavior: Behavior normal. Thought Content: Thought content normal. Judgment: Judgment normal. ASSESSMENT/PLAN: Lele was seen today for manic behavior. Diagnoses and all orders for this visit: Filiform wart - Ambulatory referral to Dermatology (Non-[facility]); Future Bipolar disorder, current episode manic without psychotic features, severe ([facility]) - ARIPiprazole (ABILIFY) 10 mg tablet; Take 1 tablet (10 mg total) by mouth in the morning. Doing well with current regimen of medications for bipolar. Kaylynn has subsided. States he is ready to return to work in a few weeks. Referral to dermatology for multiple lesion removal on neck ALL QUESTIONS ANSWERED Total time spent was 25 minutes: Preparing to see the patient (e.g., review of tests) Obtaining and/or reviewing separately obtained history Performing a medically appropriate examination and/or evaluation Counseling and educating the patient/family/caregiver Ordering medications, tests, or procedures Follow-up: Annual physical LUCA Steele 08/18/23 1128 documented in this encounter [facility] 08-03-2023 Miscellaneous Notes Formattin g of this note might be different from the original. Patient states he needs a letter to give t child support stating he is unable to work so he does not go to [employer]. Done documented in this encounter [facility] 08-03-2023 Telephone encount er Note Patient states he needs a letter to give t child support stating he is unable to work so he does not go to [employer]. [facility] 08-03-2023 Telephone encount er Note Done [facility] 05-27-2023 Evaluation note Encounter Date Diagnosis Assessment Notes May, Tendinitis of thumb (ICD-10 - M77.8) Patient appears to have developed tendonitis at the thumb causing an atypical trigger finger. We discussed treatment options with the patient. Discussed oral cortisone pills to help decrease the inflammation as well as cortisone injection to the tendon sheath. Also discussed occupational therapy if patient is able to work out transportation for this. Patient has elected to try the cortisone injection today. After sterile prep, cortisone injected into the left thumb A-1 owen. Patient tolerated well. May, Pain of left thumb (ICD-10 - M79.645) [facility] Other 08-15-2023 Evaluation note* Encounter Date Diagnosis Assessment Notes Treatment Notes Treatment Clinical Notes Feb, Sprain of metacarpophalangeal joint of left thumb, subsequent encounter (ICD-10 - S63.642D) As patient was unable to utlize the splint we provided, instructed on over the counter lower profile spica splint to allow rest to the joint while it recovers. Continue to avoid strenuous use of the thumb. [facility] Other 07-24-2023 Evaluation note* Encounter Date Diagnosis Assessment Notes Treatment Notes Treatment Clinical Notes Jan, Gamekeeper's thumb of left hand, initial encounter (ICD-10 - S63.642A) The patient appears to have a gamekeepers thumb. Placed patient in thumb spica splint to be worn for activities. We discussed the importance of icing and elevation of the arm above the heart to prevent swelling. We discussed that this injury will most likely cause pain for many weeks. Instructed on appropriate use of splinting during healing period. [facility] Other 09-09-2022 Evaluation + Plan note Future Scheduled Tests Laboratory* Semen Analysis Post Vasectomy 04/04/22 * Semen Analysis [facility]04/22 [facility] Hospital Discharge instructions Patient Education 04/04/2022 10:03:42 Contraception Choices Contraception Choices Contraception, also called control, refers to methods or devices that prevent . Hormonal methods Contraceptive implant A contraceptive implant is a thin, plastic tube that contains a hormone. It is inserted into the upper part of the arm. It can remain in place for up to 3 years. Progestin-only injections Progestin-only injections are injections of progestin, a synthetic form of the hormone progesterone. They are given every 3 months by a health care provider. control pills control pills are pills that contain hormones that prevent . They must be taken oncea day, preferably at the same time each day. control patch The control patch contains hormones that prevent . It is placed on the skin and mustbe changed once a week for three weeks and removed on the fourth week. A prescription is needed to use this method of contraception. Vaginal ring A vaginal ring contains hormones that prevent . It is placed in the vagina for three weeksand removed on the fourth week. After that, the process is repeated with a new ring. A prescriptionis needed to use this method of contraception. Emergency contraceptive Emergency contraceptives prevent after unprotected sex. They come in pill form and can betaken up to 5 days after sex. They work best the sooner they are taken after having sex. Most emergency contraceptives are available without a prescription. This method should not be used as your only form of control. Barrier methods Male condom A male condom is a thin sheath that is worn over the penis during sex. Condoms keep sperm from going inside a woman's body. They can be used with a spermicide to increase their effectiveness. They should be disposed after a single use. Female condom A female condom is a soft, loose-fitting sheath that is put into the vagina before sex. The condom keeps sperm from going inside a woman's body. They should be disposed after a single use. Diaphragm A diaphragm is a soft, dome-shaped barrier. It is inserted into the vagina before sex, along with aspermicide. The diaphragm blocks sperm from entering the uterus, and the spermicide kills sperm. A diaphragm should be left in the vagina for 6 8 hours after sex and removed within 24 hours. A diaphragm is prescribed and fitted by a health care provider. A diaphragm should be replaced every 1 2 years, after giving , after gaining more than 15 lb (6.8 kg), and after pelvic surgery. Cervical cap A cervical cap is a round, soft latex or plastic cup that fits over the cervix. It is inserted intothe vagina before sex, along with spermicide. It blocks sperm from entering the uterus. The cap should be left in place for 6 8 hours after sex and removed within 48 hours. A cervical cap must be prescribed and fitted by a health care provider. It should be replaced every 2 years. Sponge A sponge is a soft, circular piece of polyurethane foam with spermicide on it. The sponge helps block sperm from entering the uterus, and the spermicide kills sperm. To use it, you make it wet and then insert it into the vagina. It should be inserted before sex, left in for at least 6 hours after sex, and removed and thrown away within 30 hours. Spermicides Spermicides are chemicals that kill or block sperm from entering the cervix and uterus. They can come as a cream, jelly, suppository, foam, or tablet. A spermicide should be inserted into the vagina with an applicator at least 10 15 minutes before sex to allow time for it to work. The process must be repeated every time you have sex. Spermicides do not require a prescription. Intrauterine contraception Intrauterine device (IUD) An IUD is a T-shaped device that is put in a woman's uterus. There are two types: Hormone IUD.This type contains progestin, a synthetic form of the hormone progesterone. This type can stay in place for 3 5 years. Copper IUD.This type is wrapped in copper wire. It can stay in place for 10 years. Permanent methods of contraception Female tubal ligation In this method, a woman's fallopian tubes are sealed, tied, or blocked during surgery to prevent eggs from traveling to the uterus. Hysteroscopic sterilization In this method, a small, flexible insert is placed into each fallopian tube. The inserts cause scartissue to form in the fallopian tubes and block them, so sperm cannot reach an egg. The procedure takes about 3 months to be effective. Another form of control must be used during those 3 months. Male sterilization This is a procedure to tie off the tubes that carry sperm (vasectomy). After the procedure, the mancan still ejaculate fluid (semen). Natural planning methods Natural family planning In this method, a couple does not have sex on days when the woman could become . Calendar method This means keeping track of the length of each menstrual cycle, identifying the days when pregnancycan happen, and not having sex on those days. Ovulation method In this method, a couple avoids sex during ovulation. Symptothermal method This method involves not having sex during ovulation. The woman typically checks for ovulation by watching changes in her temperature and in the consistency of cervical mucus. Post-ovulation method In this method, a couple waits to have sex until after ovulation. Summary Contraception, also called control, means methods or devices that prevent . Hormonal methods of contraception include implants, injections, pills, patches, vaginal rings, and emergency contraceptives. Barrier methods of contraception can include male condoms, female condoms, diaphragms, cervical caps, sponges, and spermicides. There are two types of IUDs (intrauterine devices). An IUD can be put in a woman's uterus to prevent for 3 5 years. Permanent sterilization can be done through a procedure for males, females, or both. Natural family planning methods involve not having sex on days when the woman could become . This information is not intended to replace advice given to you by your health care provider. Make sure you discuss any questions you have with your health care provider. Document Released: 07/13/2006 Document Revised: 07/15/2018 Document Reviewed: 08/15/2017 [employer] Patient Education 2020 [employer]. Follow Up Care 02/25/2022 09:09:29 With:HERMES ESPOSITO, Keegan Ryder, URL Address: [address] [place], [place] [id number]- When: Unknown [facility] 08-23-2022 Hospital Discharge instructions Patient Education 03/18/2022 14:17:36 Vasectomy, Care After Vasectomy, Care After This sheet gives you information about how to care for yourself after your procedure. Your health care provider may also give you more specific instructions. If you have problems or questions, contact your health care provider. What can I expect after the procedure? After your procedure, it is common to have: Mild pain, swelling, redness, or discomfort in your scrotum. Some blood coming from your incisions or puncture sites for one or two days. Blood in your semen. Follow these instructions at home: Medicines Take twha-jcc-[id number] and prescription medicines only as told by your health care provider. Avoid taking NSAIDs such as aspirin and ibuprofen, because these medicines can make bleeding worse. Activity For the first 2 days after surgery, avoid physical activity and exercise that require a lot of energy. Ask your health care provider what activities are safe for you. Do not participate in sports or perform heavy physical labor until your pain has improved, or untilyour health care provider says it is okay. Do not ejaculate for at least 1 week after the procedure, or as long as directed. You may resume sexual activity 7 10 days after your procedure, or when your health care provider approves. Use a different method of control (contraception) until you have had test results thatconfirm that there is no sperm in your semen. Scrotal support Use scrotal support, such as a jock strap or underwear with a supportive pouch, as needed for one week after your procedure. If you feel discomfort in your scrotum, you may remove the scrotal support to see if the discomfortis relieved. Sometimes scrotal support can press on the scrotum and cause or worsen discomfort. If your skin gets irritated, you may add some germ-free (sterile), fluffed bandages or a clean washcloth to the scrotal support. General instructions Put ice on the injured area: ?Put ice in a plastic bag. ?Place a towel between your skin and the bag. ?Leave the ice on for 20 minutes, 2 3 times a day. Check your incisions or puncture sites every day for signs of infection. Check for: ?Redness, swelling, or pain. ?Fluid or blood. ?Warmth. ?Pus or a bad smell. Leave stitches (sutures) in place. The sutures will dissolve on their own and do not need to be removed. Keep all follow-up visits as told by your health care provider. This is important because you will need a test to confirm that there is no sperm in your semen. Multiple ejaculations are needed to clear out sperm that were beyond the vasectomy site. You will need one test result showing that there is no sperm in your semen before you can resume unprotected sex. This may take 2 4 months after your procedure. Do not drive for 24 hours if you were given a sedative to help you relax. Contact a health care provider if: You have redness, swelling, or more pain around your incision or puncture site, or in your scrotum area in general. You have bleeding from your incision or puncture site. You have pus or a bad smell coming from your incision or puncture site. You have a fever. Your incision or puncture site opens up. Get help right away if: You develop a rash. You have difficulty breathing. Summary After your procedure it is common to have mild pain, swelling, redness, or discomfort in your scrotum. Avoid physical activity and exercise that requires a lot of energy for the first 2 days after surgery. Put ice on the injured area. Leave the ice on for 20 minutes, 2 3 times a day. Do not drive for 24 hours if you were given a sedative to help you relax. This information is not intended to replace advice given to you by your health care provider. Make sure you discuss any questions you have with your health care provider. Document Released: 01/30/2006 Document Revised: 06/25/2018 Document Reviewed: 10/09/2017 [employer] Patient Education 2020 [employer]. Follow Up Care 03/05/2022 11:43:44 With:HERMES ESPOSITO, Keegan Ryder, URL Address: [facility] [address], [place] [phone] When: Unknown [facility] evaluation + Plan note Future Appointments Appointment Date:04/04/2022 09:45:00 AM Scheduled Provider:Keegan MIRZA MD Location:[facility] Appointment Type:URO Office Visit [facility] evaluiusrx noteNo assessment information available [facility] Work Phone: evalukebhb note* Diagnosis Filiform wart- Primary Bipolar disorder, current episode manic without psychotic features, severe ([facility]-HCC) [facility] N[facility]ative - Reported* Type Description Date Medical History anxiety Medical History depression Medical History gout Surgical History vasectomy 2021 [facility] Other Hospital course Narrative No data available for this section [facility] Hospital Discharge instructions No data available for this section [facility] filed[facility] in this [facility]* Attachments The following attachments cannot be sent through Care Everywhere. * Bipolar disorder (Moroccan) * Warts on the Skin (Moroccan) [facility] No data available for this section [facility] Reason for referral (narrative)* Consultation (Routine) - Pending Review Specialty Diagnoses / Procedures Referred By Maliha petersen Referred To Contact Dermatology Diagnoses Filiform wart Silvia Easton, SURVEILLANCE INSPECTOR-ORBITREAD OPERATOR [address] [place] [address] Billie Jacobs MD [address], [facility] [address] [place] [address] Referral ID Status Reason Start Date Expiration Date Visits Requested Visits Authorized [id number] Pending Review Specialty Services Required 08/18/2023 08/17/2024 1 1 [facility] Summary Purpose Family History No Family History Records FoundNo Family History Records FoundNo Family History Records FoundNo Family History Records Found Advance Directives No Advanced Directives Records Found Advance Directive Response Recorded Date/ Time Advance Directives No February 23 1:16pm Chief Complaint and Reason for Visit Chief Complaint S69.92XA S63.642D Chief Complaint BH Headaches, diarrhea, cough Additional Source Comments (unrecognized sect ion and content) No Status Records FoundNo Status Records FoundNo Status Records FoundNo Status Records Found INFORMATION SOURCE (unrecogn ized section and content) DATE CREATED AUTHOR 07/02/2022 [facility] DATE CREATED AUTHOR AUTHOR'S ORGANIZ ATION 05/14/2023 Jacobs Haskell [facility] DATE CREATED AUTHOR AUTHOR'S ORGANIZ ATION 08/21/2023 [facility] DATE CREATED AUTHOR AUTHOR'S ORGANIZ ATION 04/16/2024 [facility] REASON FOR VISIT (unrecogniz ed section and content) Reason Comments Manic Behavior Care Teams (unrecognized sec tion and content) Team Status: Active Member Role Status Dates PHYSICIAN NO FAMILY Primary Care Provider Active Team Status: Active Member Role Status Dates PHYSICIAN NO FAMILY Primary Care Provider Active Start: December 31, 2023 Harley Proctor DO Attending Provider Active Sta rt: December 31, 2023 Team Status: Active Member Role Status Dates PHYSICIAN NO FAMILY Primary Care Provider Active Start: February 18, 2024 Girma Arizmendi MD Attending Provider Active Start: February 18, 2024 Team Status: Inactive Member Role Status Dates PHYSICIAN NO FAMILY Primary Care Provider Active Start: March 29, 2024 End: March 29, 2024 Jill Wadsworth APRN Attending Provider Active Start: March 29, 2024 End: March 29, 2024 Casing Tester Relationship Specialty Start Date End Date Silvia Easton APRN-ORBITREAD OPERATOR [address] [place] [address] PCP - General Family Medicine 05/07/23 Team Status: Active Member Role Status Dates PHYSICIAN NO FAMILY Primary Care Provider Active Team Status: Inactive Member Role Status Dates BAYLEE Gr Attending Provider Active Team Status: Inactive Member Role Status Dates BAYLEE Gr Attending Provider Active PHYSICIAN NO FAMILY Primary Care Provider Active Goals (unrecognized section and content) Goals may be documented in a n alternate section FOR RECORDS PERTAINING TO PATIENTS WHO ARE OR HAVE BEEN ENROLLED IN A CHEMICAL DEPENDENCY/SUBSTANCEABUSE PROGRAM, SOME INFORMATION MAY BE OMITTED. This clinical summary was aggregated from multiple sources. Caution should be exercised in using it in the provision of clinical care. This summary normalizes information from multiple sources, and as a consequence, information in this document may materially change the coding, format and clinical context of patient data. In addition, data may be omitted in some cases. CLINICAL DECISIONS SHOULD BE BASED ON THE PRIMARY CLINICAL RECORDS. [employer] provides no warranty or guarantee of the accuracy or completeness of information in this document.
--- NOTE | 2024-04-24 21:35 | ED.ANXIETY1 ---
HPI - Anxiety General Chief Complaint: Anxiety Stated Complaint: Panic attack Symptoms Time Seen by Provider: 04/24/24 21:20 Source: patient Mode of arrival: Wheelchair History of Present Illness HPI narrative: past history of bipolar anxiety. Presents with recurrent panic attacks. increased stress at home.Being evicted from his home. Has hydroxyzine but states it does not work Related Data Home Medications ?Medication ?Instructions ?Recorded ?Confirmed bupropion HCl 300 mg 24 hr tablet, 300 mg PO DAILY 02/07/23 04/24/24 extended release (Wellbutrin XL) fluoxetine 10 mg capsule (Prozac) 10 mg PO DAILY 02/07/23 04/24/24 hydroxyzine HCl 25 mg tablet 25 mg PO Q8H PRN itching 05/26/23 04/24/24 benztropine 0.5 mg tablet 0.5 mg PO 10/29/23 cariprazine 1.5 mg capsule 1.5 mg PO DAILY 10/29/23 04/24/24 (Vraylar) trazodone 50 mg tablet 150 mg PO .qhs 10/29/23 04/24/24 buspirone 7.5 mg tablet mg 04/24/24 Previous Rx's ?Medication ?Instructions ?Recorded hyoscyamine sulfate 0.125 mg 0.125 mg PO Q6H PRN abdominal pain 10/29/23 tablet (Levsin) #12 tabs ondansetron 4 mg disintegrating 4 mg PO Q6H PRN nausea and 10/29/23 tablet vomiting #12 tabs naproxen sodium 550 mg tablet 550 mg PO BID PRN pain #10 tabs 12/31/23 Allergies Allergy/AdvReac Type Severity Reaction Status Date / Time No Known Drug Allergies Allergy Verified 04/24/24 21:12 Review of Systems ROS Status of ROS 10 or more systems reviewed and unremarkable except as noted in history and below PFSH PFS Social History Smoking status: Current every day smoker Little interest or pleasure in doing things: nearly every day Feeling down, depressed, or hopeless: nearly every day Exam Constitutional Vital Signs, click to edit/add: Last Vital Signs Temp 98.1 F 04/24/24 21:00 Pulse 93 H 04/24/24 21:00 Resp 24 H 04/24/24 21:00 BP 177/107 H 04/24/24 21:00 Pulse Ox 99 04/24/24 21:00 Common normals: no apparent distress, average body habitus, oriented x3, no limitations, healthy appearing, alert and well nourished [facility] Common normals: normocephalic and head/scalp atraumatic Eye Common normals: PERRL, EOMs intact bilaterally and conjunctivae normal Respiratory Common normals: normal respiratory effort, no retractions, no use of accessory muscles and clear to auscultation bilaterally Cardio Common normals: regular rate, regular rhythm, S1 normal heart sound and S2 normal heart sound GI Common normals: Normal to inspection, nondistended, normoactive bowel sounds present, soft to palpation and non-tender Extremity Common normals: normal to inspection Neuro Common normals: oriented x3, CN's II-XII intact bilaterally and moves all extremities Psych Appearance: grossly normal Course Vital Signs Vital signs: Vital Signs Temperature 98.1 F 04/24/24 21:00 Pulse Rate 93 H 04/24/24 21:00 Respiratory Rate 24 H 04/24/24 21:00 Blood Pressure 177/107 H 04/24/24 21:00 Pulse Oximetry 99 04/24/24 21:00 Temperature 98.1 F 04/24/24 21:00 Pulse Rate 93 H 04/24/24 21:00 Respiratory Rate 24 H 04/24/24 21:00 Blood Pressure 177/107 H 04/24/24 21:00 Pulse Oximetry 99 04/24/24 21:00 MDM - Anxiety MDM Narrative Medical decision making narrative: patient presents with panic attack. Given dose of ativan and spoke to [facility]. Feeling better and has an appointment tomorrow with mental health Discharge Plan Discharge Chief Complaint: Anxiety Clinical Impression: Anxiety Patient Disposition: Home, Self-Care Prescriptions / Home Meds: No Action fluoxetine [Prozac] 10 mg capsule 10 mg PO DAILY bupropion HCl [Wellbutrin XL] 300 mg tablet extended release 24 hr 300 mg PO DAILY hydroxyzine HCl 25 mg tablet 25 mg PO Q8H PRN (Reason: itching) trazodone 50 mg tablet 150 mg PO .qhs Vraylar 1.5 mg capsule 1.5 mg PO DAILY benztropine 0.5 mg tablet 0.5 mg PO Patient Comments: started today hyoscyamine sulfate [Levsin] 0.125 mg tablet 0.125 mg PO Q6H PRN (Reason: abdominal pain) Qty: 12 0RF ondansetron 4 mg tablet,disintegrating 4 mg PO Q6H PRN (Reason: nausea and vomiting) Qty: 12 0RF naproxen sodium 550 mg tablet 550 mg PO BID PRN (Reason: pain) Qty: 10 0RF buspirone 7.5 mg tablet Print Language: [place] Instructions: Anxiety (ED) Additional Instructions: follow up with mental health tomorrow Referrals: SILVIA OWENS [Primary Care Provider] - 1 week
[2024-04-24] MEDS: LORAZEPAM 1 MG TABLET PO (22:04)
[2024-04-24 22:06] VITALS: BP 142/70; PULSE 68; O2SAT 99
== END 2024-04-24 22:22 | disposition home or self-care (01) ==
PROVIDERS: Emergency Provider Internal Medicine; PCP Nurse Practitioner
DX: F41.9 Anxiety disorder, unspecified (principal); F31.9 Bipolar disorder, unspecified; F17.200 Nicotine dependence, unspecified, uncomplicated
CPT/HCPCS: 99283

== ENCOUNTER 2024-05-16 21:40 | Emergency (ER) | payer BC, SELFPAY ==
[2024-05-16 21:44] VITALS: BP 152/92; PULSE 75; TEMP 36.7; O2SAT 99; BMI 35.3
--- OUTSIDE RECORDS SUMMARY | 2024-05-16 21:46 | XMS_ITS | CCD ---
Author Organization [facility] Care Team Providers Care Specialty Plant Supervisor Name Role Phone NONE, XXXX Primary Care [...] Melody Smith Unavailable BAYLEE Smith Attending Provider [phone] NO FAMILY, PHYSICIAN Primary Care Provider Unava ilable Hazel Harden Unavailable Silvia Mckeon Primary Care Provid er SILVIA EASTON Attending Unavailable SILVIA EASTON Referring Unavailable SILVIA EASTON Primary Care Unavailable SILVIA EASTON Attending Unavailable SILVIA EASTON Referring Unavailable SILVIA EASTON Primary Care Unavailable NO FAMILY, PHYSICIAN Primary Care Provider Unava ilable MD Girma Arizmendi Attending Provider [phone] Melody Smith Admitting Unavailable Melody Smith Attending Unavailable NO FAMILY, PHYSICIAN Primary Care Unavailable Girma Arizmendi Attending Unavailab le NO FAMILY, PHYSICIAN Primary Care Unavailable Girma Arizmendi Admitting Unavailab le Allergies Allergy Classification Reported Allergen(s) Allergy Type Date of Onset Reaction(s) Facility (1 source) No Known Medication Allergies; Translations: [No Known Medication Allergies] Propensity to adverse reactions (disorder) [facility] Repository Medications Current Medications Medication Drug [...] day(s), # 10 cap(s), Refills(s) 0, Pharmacy: [id number], 177, cm, 03/18/22 13:43:00 EDT, Height/Length Dosing, 135, kg, 03/18/22 13:43:00 EDT, Weight Dosing Start Date: 03/18/22 Stop Date: 03/23/22 Status: Ordered dextromethorphan hydrobromide 15 mg / guaiFENesin 400 mg / pseudoephedrine hydrochloride 60 mg oral tablet (1 source) alpha-Adrenergic Agonist, Uncompetitive K-ncyzsh-T-aspartat e Receptor Antagonist, Sigma-1 Agonist Start: 03-29-2024 [...] noon/midday Start: 07-14-2023 take 1 capsule by [facility] in the morning FLUoxetine (PROzac) 40 mg [...] 08-18-2023 07-14-2023 Other aftercare (1 source) Other rodent exterminator (current) drug therapy; Translations: [[facility] CURRENT DR[facility] THERAPY] Onset: 04-01-2022 Episodic Other [...] conon 05-15-20 MR hand LT wo con [facility] Main [address] [address] MRI Report Signed Patient: Lele Norwood MR#: [id number] 9 : 1985 Acct:[id number] Age/Sex: 37 / M ADM Date: 05/14/23 Loc: [facility] Room: Type: [employer] Attending Dr: Melody Smith NP-C Copies to: [...] Donta Alvares M.D.05/18/2023 9:25 AM Dictation Location: [place] [address] Transcribed By: [facility] 05/18/2325 Dictated By: Donta Alvares DO 05/15/23 0851 Signed By: 10/23/23 0925 Normal [facility] XR hand LT min 3V*on 023 XR hand LT min 3V* [facility] [employer] Other XR hand LT min 3V* [facility] [employer] Other XR hand LT min 3V* [facility] [employer] Other XR hand LT min 3V* [facility] [id number] [employer] Other XR hand LT min 3V* XRay Report [employer] Other XR hand LT min 3V* Signed [employer] Other XR hand LT min 3V* Patient: Lele Norwood MR#: [id number] [employer] Other XR hand LT min 3V* 9 [employer] Other XR hand LT min 3V* : 1985 Acct:[id number] [employer] Other XR hand LT min 3V* Age/Sex: 37 / M ADM Date: 02/16/23 [employer] Other XR hand LT min 3V* Loc: [facility] Room: Type: [facility] [employer] Other XR hand LT min 3V* Attending Dr: Melody BEACH [employer] Other XR hand LT min 3V* Copies to: ESME Gr [employer] Other XR hand LT min 3V* Ordering Provider: ESME Gr [employer] Other XR hand LT min 3V* Date of Service: 02/16/23 [employer] Other XR hand LT min 3V* XR/XR hand LT min 3V*: S69.92XA [employer] Other XR hand LT min 3V* 4 views LEFT hand plain film [employer] Other XR hand LT min 3V* COMPARISON: None [employer] Other XR hand LT min 3V* HISTORY: Hyperextension of the thumb. [employer] Other XR hand LT min 3V* ACUTE FINDINGS: None [employer] Other XR hand LT min 3V* DEGENERATIVE CHANGE: Unremarkable [employer] Other XR hand LT min 3V* SOFT TISSUE FINDINGS: Unremarkable [employer] Other XR hand LT min 3V* JOINT EFFUSION: None [employer] Other XR hand LT min 3V* POSTOP CHANGES: None [employer] Other XR hand LT min 3V* BONY MINERALIZATION: Adequate [employer] Other XR hand LT min 3V* XR/XR hand LT min 3V* [employer] Other XR hand LT min 3V* IMPRESSION: No acute findings [employer] Other XR hand LT min 3V* Impression dictated by: Donta Alvares M.D.02/16/2023 3:57 PM [employer] Other XR hand LT min 3V* Dictation Location: [place] [address] [employer] Other XR hand LT min 3V* Transcribed By: MIGUELINA 02/16/23 [facility]7 [employer] Other XR hand LT min 3V* Dictated By: Donta Alvares DO 02/16/23 1545 [employer] Other XR hand LT min 3V* Signed By: [employer] Other XR hand LT min 3V* 02/16/23 6438 [employer] Other ER URINE PROFILEon 2 Bilirubin Ql (U) Negative Normal NEGATIVE The [facility] Comment on above: Performed By: #### E RUR #### [facility] [address] [place] [address] Dr. Sailaja Barillas Clarity (U) CLEAR Normal CLEAR [facility] Comment on above: Performed By: #### E RUR #### [facility] [address] [place] [address] Dr. Sailaja Barillas Color (U) LT. YELLOW Normal YELLOW [facility] Comment on above: Performed By: #### E RUR #### [facility] [address] [place] [address] Dr. Sailaja SWANSON A micrscopic examina tion will be performed if indicated. Normal The [facility] Comment on above: Performed By: #### E RUR #### [facility] [address] [place] [address] Dr. Sailaja Barillas Glucose Ql (U) Negative Normal NEGATIVE [facility] Comment on above: Performed By: #### E RUR #### [facility] [address] [place] [address] Dr. Sailaja Barillas Hemoglobin Ql (U) Negative Normal NEGATIVE The [facility] Comment on above: Performed By: #### E RUR #### [facility] [address] [place] [address] Dr. Sailaja Barillas Ketones Ql (U) Negative Normal NEGATIVE [facility] Comment on above: Performed By: #### E RUR #### [facility] [address] [place] [address] Dr. Sailaja Barillas LEUKOCYTES Negative Normal NEGATIVE [facility] Comment on above: Performed By: #### E RUR #### [facility] [address] [place] [address] Dr. Sailaja Barillas Nitrite Ql (U) Negative Normal NEGATIVE [facility] Comment on above: Performed By: #### E RUR #### [facility] [address] [place] [address] Dr. Sailaja Barillas pH (U) 7.0 [pH] Normal 5-9 The [facility] Comment on above: Performed By: #### E RUR #### [facility] [address] [place] [address] Dr. Sailaja Barillas SPEC GRAVITY 1.015 Normal 1.005-<=1.025 The [facility] Comment on above: Performed By: #### E RUR #### [facility] [address] [place] [address] Dr. Sailaja Barillas UA PROTEIN Negative Normal NEGATIVE/ TRACE The [facility] Comment on above: Performed By: #### E RUR #### [facility] [address] [place] [address] Dr. Sailaja Barillas UR MICRO IND NOT INDICATED Normal The [facility] Comment on above: Performed By: #### E RUR #### [facility] [address] [place] [address] Dr. Sailaja Barillas Urobilinogen Qn (U) 0.2 {Gael'U}/dL Normal 0.2 - 1.0 [facility] Comment on above: Performed By: #### E RUR #### [facility] [address] [place] [address] Dr. Sailaja Barillas CBC AUTO DIFFon 03-20-2022 BASO # 0.1 103/ul Normal 0.0-0.1 The [facility] Comment on above: Performed By: #### C BC #### [facility] [address] [place] [address] Dr. Sailaja Barillas Basophils/100 WBC (Bld) 0.7 % Normal 0.2-2.0 The [facility] Comment on above: Performed By: #### C BC #### [facility] [address] [place] [address] Dr. Sailaja Barillas EO # 0.1 103/ul Normal 0.0-0.7 The [facility] Comment on above: Performed By: #### C BC #### [facility] [address] [place] [address] Dr. Sailaja Barillas Eosinophils/100 WBC (Bld) 0.9 % Normal 0.9-7.0 [facility] Comment on above: Performed By: #### C BC #### [facility] [address] [place] [address] Dr. Sailaja Barillas Erythrocyte distribution width (RBC) [Ratio] 12.9 % Normal 11.0-15.0 [facility] Comment on above: Performed By: #### C BC #### [facility] [address] [place] [address] Dr. Sailaja Barillas Hematocrit (Bld) [Volume fraction] 39.4 % Critically low 42.0-54.0 [facility] Comment on above: Performed By: #### C BC #### [facility] [address] [place] [address] Dr. Sailaja Barillas Hemoglobin (Bld) [Mass/Vol] 13.5 g/dL Critically low 14.0-18.0 [facility] Comment on above: Performed By: #### C BC #### [facility] [address] [place] [address] Dr. Sailaja Barillas IG # 0.03 10e3/ul Normal 0.00-0.03 [facility] Comment on above: Performed By: #### C BC #### [facility] [address] [place] [address] Dr. Sailaja Barillas IG % 0.3 % Normal 0.0-0.5 [facility] Comment on above: Performed By: #### C BC #### [facility] [address] [place] [address] Dr. Sailaja Barillas LYMPH # 2.6 103/ul Normal 1.2-3.8 The [facility] Comment on above: Performed By: #### C BC #### [facility] [address] [place] [address] Dr. Sailaja Barillas Lymphocytes/100 WBC (Bld) 29.4 % Normal 20.5-60.0 [facility] Comment on above: Performed By: #### C BC #### [facility] [address] [place] [address] Dr. Sailaja Barillas MANUAL DIFF REQ NO Normal The [facility] Comment on above: Performed By: #### C BC #### [facility] [address] [place] [address] Dr. Sailaja Barillas MCH (RBC) [Entitic mass] 30.4 pg Normal 25.9-34.0 [facility] Comment on above: Performed By: #### C BC #### [facility] [address] [place] [address] Dr. Sailaja Barillas MCHC (RBC) [Mass/Vol] 34.3 g/dL Normal 29.9-35.2 [facility] Comment on above: Performed By: #### C BC #### [facility] [address] [place] [address] Dr. Sailaja Barillas MCV (RBC) [Entitic vol] 88.7 fL Normal 80.0-94.0 [facility] Comment on above: Performed By: #### C BC #### [facility] [address] [place] [address] Dr. Sailaja aBrillas MONO # 0.7 103/ul Normal 0.3-0.8 [facility] Comment on above: Performed By: #### C BC #### [facility] [address] [place] [address] Dr. Sailaja Barillas Monocytes/100 WBC (Bld) 8.4 % Normal 1.7-12.0 [facility] Comment on above: Performed By: #### C BC #### [facility] [address] [place] [address] Dr. Sailaja Barillas NEUT # 5.3 103/ul Normal 1.4-6.5 The [facility] Comment on above: Performed By: #### C BC #### [facility] [address] [place] [address] Dr. Sailaja Barillas Neutrophils/100 WBC (Bld) 60.3 % Normal 43.0-75.0 [facility] Comment on above: Performed By: #### C BC #### [facility] [address] [place] [address] Dr. Sailaja Barillas Platelet mean volume (Bld) [Entitic vol] 9.6 fL Normal 9.5-13.5 [facility] Comment on above: Performed By: #### C BC #### [facility] [address] [place] [address] Dr. Sailaja Barillas PLT 242 103/ul Normal 150-450 [facility] Comment on above: Performed By: #### C BC #### [facility] [address] [place] [address] Dr. Sailaja Barillas RBC 4.44 106/ul Critically low 4.70-6.10 [facility] Comment on above: Performed By: #### C BC #### [facility] [address] [place] [address] Dr. Sailaja Barillas WBC 8.8 103/ul Normal 4.0-11.0 [facility] Comment on above: Performed By: #### C BC #### [facility] [address] [place] [address] Dr. Sailaja Barillas ER URINE PROFILEon 2 Bilirubin Ql (U) Negative Normal NEGATIVE [facility] Comment on above: Performed By: #### E RUR #### [facility] [address] [place] [address] Dr. Sailaja Barillas Clarity (U) CLEAR Normal CLEAR [facility] Comment on above: Performed By: #### E RUR #### [facility] [address] [place] [address] Dr. Sailaja Barillas Color (U) YELLOW Normal YELLOW The [facility] Comment on above: Performed By: #### E RUR #### [facility] [address] [place] [address] Dr. Sailaja Barillas ERUAHD A micrscopic examina tion will be performed if indicated. Normal The [facility] Comment on above: Performed By: #### E RUR #### [facility] [address] [place] [address] Dr. Sailaja Barillas Glucose Ql (U) Negative Normal NEGATIVE The [facility] Comment on above: Performed By: #### E RUR #### [facility] [address] [place], [place] [id number] Dr. Sailaja Barillas Hemoglobin Ql (U) Negative Normal NEGATIVE The [facility] Comment on above: Performed By: #### E RUR #### [facility] [address] [place] [address] Dr. Sailaja Barillas Ketones Ql (U) Negative Normal NEGATIVE The [facility] Comment on above: Performed By: #### E RUR #### [facility] [address] [place] [address] Dr. Sailaja Barillas LEUKOCYTES Negative Normal NEGATIVE [facility] Comment on above: Performed By: #### E RUR #### [facility] [address] [place] [address] Dr. Sailaja Barillas Nitrite Ql (U) Negative Normal NEGATIVE The [facility] Comment on above: Performed By: #### E RUR #### [facility] [address] [place] [address] Dr. Sailaja Barillas pH (U) 5.5 [pH] Normal 5-9 [facility] Comment on above: Performed By: #### E RUR #### [facility] [address] [place] [address] Dr. Sailaja Barillas SPEC GRAVITY 1.025 Normal 1.005-<=1.025 [facility] Comment on above: Performed By: #### E RUR #### [facility] [address] [place] [address] Dr. Sailaja Barillas UA PROTEIN Negative Normal NEGATIVE/ TRACE The [facility] Comment on above: Performed By: #### E RUR #### [facility] [address] [place] [address] Dr. Sailaja Barillas UR MICRO IND NOT INDICATED Normal The [facility] Comment on above: Performed By: #### E RUR #### [facility] [address] [place] [address] Dr. Sailaja Barillas Urobilinogen Qn (U) 0.2 {Gael'U}/dL Normal 0.2 - 1.0 [facility] Comment on above: Performed By: #### E RUR #### [facility] [address] [place] [address] Dr. Sailaja Barillas PROF CHEM 8 (BAS METB)on Anion gap [Moles/Vol] 11.1 mmol/L Normal [facility] Comment on above: Performed By: #### B MP #### [facility] [address] [place] [address] [address] Sailaja Barillas Calcium [Mass/Vol] 8.5 mg/dL Normal 8.5-10.1 The [facility] Comment on above: Performed By: #### B MP #### [facility] [address] [place] [address] [address] Sailaja Barillas Chloride [Moles/Vol] 106 mmol/L Normal 98-107 The [facility] Comment on above: Performed By: #### B MP #### [facility] [address] [place] [address] [address] Sailaja Barillas CO2 [Moles/Vol] 26.8 mmol/L Normal 21.0-32.0 The [facility] Comment on above: Performed By: #### B MP #### [facility] [address] [place] [address] [address] Sailaja Barillas Creatinine [Mass/Vol] 0.97 mg/dL Normal 0.70-1.30 The [facility] Comment on above: Performed By: #### B MP #### [facility] [address] [place] [address] [address] Sailaja Barillas EGFR-AF MONGOLIAN >60 Normal >=60 The [facility] Comment on above: Performed By: #### B MP #### [facility] [address] [place] [address] [address] Sailaja Barillas EGFR-NON AF MONGOLIAN >60 Normal >=60 The [facility] Comment on above: Performed By: #### B MP #### [facility] [address] [place] [address] [address] Sailaja Barillas Glucose [Mass/Vol] 102 mg/dL Normal 74-106 The [facility] Comment on above: Performed By: #### B MP #### [facility] [address] [place] [address] [address] Sailaja Barillas Potassium [Moles/Vol] 3.9 mmol/L Normal 3.5-5.1 [facility] Comment on above: Performed By: #### B MP #### [facility] [address] [place] [address] [address] Sailaja Barillas Sodium [Moles/Vol] 140 mmol/L Normal 136-145 [facility] Comment on above: Performed By: #### B MP #### [facility] [address] [place] [address] [address] Sailaja Barillas Urea nitrogen [Mass/Vol] 10.0 mg/dL Normal 7.0-18.0 [facility] Comment on above: Performed By: #### B MP #### [facility] [address] [place] [address] Dr. Sailaja Barillas Urea nitrogen/Creatini ne [Mass ratio] 10.3 mg/mg Normal [facility] Comment on above: Performed By: #### B MP #### [facility] [address] [place] [address] Dr. Sailaja Barillas US SCROTUM W VASCULAR ORGANo n 03-20-2022 US SCROTUM W VASCULAR ORGAN EXAM: US SCROTUM W VASCULAR ORGAN HISTORY: Postoperative pain COMPARISON: None. TECHNIQUE: Alan scale imaging as well as color and duplex Doppler ultrasound examination of the scrotum and its contents were performed. FINDINGS: The testes are normal in size and echotexture without focal abnormality. The right testicle per automotive assembler although appears slightly more proximal within the [...] by: LILA JEFFREY Date: 2022-03-20 18:55 Normal [facility] XR KNEE RT 4V or >on [...] by: SANIYA MATOS Date: 2022-03-01 13:40 Normal [facility] Vital Signs Date Time Vital Sign Value Performing Clinician Facility 03-29-2024 09:08-0400 Body height 177.8 cm PHYSICIAN NO [facility] 03-29-2024 09:08-0400 Body mass index (BMI) [Ratio] 36.3 kg/m2 PHYSICIAN NO [facility] 03-29-2024 09:08-0400 Body temperature 97.7 [degF] PHYSICIAN NO [facility] 03-29-2024 09:08-0400 Body weight 114.98 kg PHYSICIAN NO [facility] 03-29-2024 09:08-0400 Diastolic blood pressure 82 mm[Hg] PHYSICIAN NO [facility] 03-29-2024 09:08-0400 Heart rate 79 /min PHYSICIAN NO [facility] 03-29-2024 09:08-0400 Respiratory rate 18 /min PHYSICIAN NO [facility] 03-29-2024 09:08-0400 SaO2% (BldA) [Mass fraction] 98 % PHYSICIAN NO [facility] 03-29-2024 09:08-0400 Systolic blood pressure 119 mm[Hg] PHYSICIAN NO [facility] 08-18-2023 10:56-0500 Body height 177.8 cm Silvia Easton APRNVascular PharmaceuticalsABUNDIO Work Phone: [employer] [facility] 08-18-2023 10:56-0500 Body mass index (BMI) [Ratio] 38.48 kg/m2 Silvia Easton [employer] Work Phone: [facility] 08-18-2023 10:56-0500 Body temperature 97.81 [degF] Silvia Easton APRN-[employer]INTER [employer]PER[employer] Work Phone: [facility] 08-18-2023 10:56-0500 Body weight 121.66 kg Silvia Easton CAREER SERVICES COORDINATOR-[employer]INTER OPER[employer] Work Phone: [employer] 08-18-2023 10:56-0500 Diastolic blood pressure 78 mm[Hg] Silvia Easton CAREER SERVICES COORDINATOR-[employer]INTER OPERATOR Work Phone: [facility] 08-18-2023 10:56-0500 Heart rate 83 /min Silvia Easton APRN-VENEER JOINTER OPERATOR Work Phone: [facility] 08-18-2023 10:56-0500 SaO2% (BldA) [Mass fraction] 93 % Silvia Easton APRN-VENEER JOINTER OPERATOR Work Phone: [facility] 08-18-2023 10:56-0500 Systolic blood pressure 120 mm[Hg] Silvia Easton APRN-VENEER JOINTER OPERATOR Work Phone: [facility] 02-16-2023 15:15-0400 Body height 177.8 cm Melody Smith Other [facility] Other 02-16-2023 15:15-0400 Body mass index (BMI) [Ratio] 34.15 kg/m2 Melody Smith Other [facility] Other 02-16-2023 15:15-0400 Body weight 107.96 kg Melody Smith Other [facility] Other 04-04-2022 10:10-0400 Respiratory rate 16 /min Keegan MIRZA [facility] 03-18-2022 13:34-0400 Blood Pressure Location Keegan MIRZA [facility] [place] 03-18-2022 13:34-0400 Diastolic blood pressure 99 mm[Hg] Keegan MIRZA [facility] [place] 03-18-2022 13:34-0400 Heart rate 83 /min Keegan MIRZA [facility] [place] 03-18-2022 13:34-0400 Systolic blood pressure 158 mm[Hg] Keegan MIRZA [facility] [place] Encounters Encounter Date Encounter Type Care Provider Facility Start: 05-03-2024 ambulatory Girma Cardoso acility:[facility] Start: 03-29-2024 End: 03-29-2024 ambulatory PHYSICIAN NO [facility] Work Phone: Start: 03-29-2024 End: 03-29-2024 Patient encounter procedure PHYSICIAN NO [facility] Physician [facility] Work Phone: Start: 02-18-2024 Registered Recurring PHYSICIAN WILLA [facility] Start: 12-31-2023 Non-patient / Non-visit PHYSICIAN NO [facility] Work Phone: Start: 08-18-2023 End: 08-18-[address] [facility] Start: 08-18-2023 End: 08-18-2023 Office outpatient visit 15 minutes Silvia Easton CAREER SERVICES COORDINATOR-VENEER JOINTER OPERATOR Work Phone: [facility] - [facility] Medicine Comment on above: Filiform wart (Prima ry Dx); Bipolar disorder, current episode manic without psychotic features, severe ([facility]) Start: 08-03-2023 Telephone encounter Tammie Kennedy MA [facility] Start: 07-14-2023 End: 07-14-2023 ambulatory SILVIA Gan [facility] Start: 05-27-2023 End: 05-27-2023 ambulatory Hazel Harden Other [facility] Other Start: 05-27-2023 Office outpatient ne w 45 minutes Hazel Eppsalessio [facility] Start: 05-14-2023 End: 05-14-2023 Patient encounter procedure PHYSICIAN NO [facility] [address] Work Phone: Start: 05-14-2023 End: 05-14-2023 ambulatory PHYSICIAN NO [facility] Work Phone: Start: 03-10-2023 End: 03-10-2023 ambulatory Melody Smith Other [facility] Other Start: 03-10-2023 Office outpatient visit 15 minutes Melody Smith [facility] Start: 02-16-2023 End: 02-16-2023 Patient encounter procedure PHYSICIAN NO [facility] Start: 02-16-2023 End: 02-16-2023 ambulatory Melody Smith Other [facility] Other Start: 02-16-2023 Office outpatient ne w 30 minutes Melody Smith [facility] Start: 04-08-2022 ambulatory Facility:[facility] [place] Start: 04-04-2022 End: 04-04-2022 Patient encounter procedure Keegan MIRZA [facility] [place] Start: 03-31-2022 End: 03-31-2022 ambulatory EMELY HONEYCUTT Facility:[facility] Start: 03-20-2022 End: 03-20-[address] NONE LISTED REQUEST Facility:[facility] Start: 03-18-2022 End: 03-18-2022 Lab Drop off Keegan MIRZA [facility] Start: 03-18-2022 End: 03-18-2022 Patient encounter procedure Keegan MIRZA [facility] [place] Start: 03-01-2022 End: 03-01-[address] [...] Td Vaccines (8 - Td or Tdap) [facility] Start: 08-18-2024 Adult BMI Screening Adult BMI Screen ing [facility] Start: 08-18-2024 Depression Screening Depression Scre [facility] Start: 08-18-2024 Tobacco Screening Tobacco Screening [facility] Start: 07-14-2024 Adult BMI Follow Up Plan Adult BMI Follow Up Plan [facility] Start: 07-14-2024 Depression Screening Depression Scre [facility] Start: 07-14-2024 Tobacco Screening Tobacco Screening [facility] Start: 06-09-2024 Adult BMI Screening Adult BMI Screen ing [facility] Start: 08-18-2023 End: 08-18-2023 Patient encounter procedure 08/18/2023 11:00 AM EST Office Visit [facility] [address] [place] [id number] Silvia Easton, CAREER SERVICES COORDINATOR-VENEER JOINTER OPERATOR [address] [place] [address] [facility] Start: 05-14-2023 MRI of left hand MR hand LT wo con F [facility] Start: 03-27-2023 COVID-19 Vaccine ( season) COVID-19 Vaccine () [facility] Start: 03-27-2023 Influenza vaccination Influenza Vacc ine [facility] Immunizations Immunization Date Immunization Notes Care Provider Fa cility 02-28-2021 COVID-19 Vaccine, vector-nr, rS-Ad26, PF, 0.5mL Tammie Love [facility] 02-24-2021 SARS-CoV-2 (COVID-19 ) Ad26 vaccine, recombinant Keegan MIRZA [facility] [place] 06-14-2020 Influenza, injectabl e, Madin Mirian Canine Kidney, preservative free, quadrivalent Tammiemabel Love [facility] 06-14-2020 pneumococcal polysaccharide vaccine, 23 valent Tammie Love [facility] 06-14-2020 influenza virus vaccine, unspecified formulation Tammie Love [facility] 05-12-2018 influenza, injectabl e, quadrivalent, preservative free Tammie Love [facility] 05-12-2018 tetanus toxoid, redu mey diphtheria toxoid, and acellular pertussis vaccine, adsorbed Tammiemabel Love [facility] 01-05-2002 hepatitis B vaccine, pediatric or pediatric/adolescent dosage Tammiemabel Love [facility] 04-23-2000 hepatitis B vaccine, pediatric or pediatric/adolescent dosage Tammiemabel Love [facility] 02-20-2000 hepatitis B vaccine, pediatric or pediatric/adolescent dosage [facility] 02-20-2000 tetanus and diphther ia toxoids, adsorbed, preservative free, for adult use (2 Lf of tetanus toxoid and 2 Lf of diphtheria toxoid) [facility] 01-21-2000 hepatitis B vaccine, pediatric or pediatric/adolescent dosage [facility] 05-17-1993 measles, mumps and rubella virus vaccine [facility] 09-15-1990 diphtheria, tetanus toxoids and pertussis vaccine [facility] 09-15-1990 haemophilus influenz ae type b vaccine, conjugate unspecified formulation [facility] 09-15-1990 trivalent poliovirus vaccine, live, oral [facility] 01-31-1987 diphtheria, tetanus toxoids and pertussis vaccine [facility] 01-31-1987 measles, mumps and rubella virus vaccine [facility] 01-31-1987 trivalent poliovirus vaccine, live, oral [facility] 05-17-1986 diphtheria, tetanus toxoids and pertussis vaccine [facility] 03-15-1986 diphtheria, tetanus toxoids and pertussis vaccine [facility] 03-15-1986 trivalent poliovirus vaccine, live, oral [facility] 01-11-1986 diphtheria, tetanus toxoids and pertussis vaccine [facility] 01-11-1986 trivalent poliovirus vaccine, live, oral [facility] NEGATED: Highlighted row has not occurred!02-10-2022 SARS-CoV-2 mRNA (tozinameran 5y-11y) vaccine Keegan MIRZA [facility] [place] Payers Date Payer Category Payer Self-pay 2022 [facility] [id number] 2022 Unknown ZAN MAURICIO SS (PPO) [id number] 2022-Present [phone] [address] [place] [address] [id number] 1985 Unknown [id number] 93 1985 Unknown [id number] 93 1985 Unknown [id number] 93 1985 Unknown [id number] 1985 Unknown [id number] 286 1959 Unknown [id number] 1959 Unknown [id number] 1959 Unknown [id number] Unknown [id number] 31 Unknown [id number] 31 Social History Date Type Detail Facility Start: 03-18-2022 Tobacco smoking status Light t obacco smoker (finding) [facility] Tobacco smoking status Smoker (finding) [facility] Start: 09-05-2020 End: 09-26-2020 Sex Assigned At Male [facility] Start: 04-04-2022 End: 05-07-2023 Tobacco smoking status Ex-smoker (finding) [facility] Start: 1985 Sex Assigned At Male F [facility] History of tobacco use Cigarette Smoker P [facility] Start: 05-07-2023 Tobacco use and exposure Smoke less tobacco non-user [facility] Start: 07-14-2023 End: 08-18-2023 Alcohol intake Ex-drinker (finding) [facility] Start: 09-05-2020 End: 09-26-2020 History of Social function [facility] Frequency of Alcohol Consumption Never [facility] Start: 1985 Sex Assigned At Not on file P [facility] Functional Status Date Assessment Result Facility 04-04-2022 Functional Status N/A [facility] 03-18-2022 Functional Status N/A [facility] [place] Clinical Notes 03-18-2022 to 08-18-2023 [facility] 08/18/2023 11:00 AM ESTTelephone Encounter - Tammie Love [facility] - 08/03/2023 11:52 AM ESTTelephone Encounter - [facility] Easton [facility] - 08/03/2023 11:52 AM EST Note Date & Type Note Facility 08-18-2023 History of Presen t illness Narrative Images from the original note were not included. [address] [facility] [address] SUBJECTIVE: Patient ID: Lele Norwood is a 37 y.o. male. Chief Complaint Patient presents with Manic Behavior States his moods have stabilized. Feels he is doing well with updated medication regimen. Is now being monitored by psychiatry and counseling. Plays [employer] and noticed his playing has improved. Enjoys [...] Medical History: Diagnosis Date Affective bipolar disorder ([facility]) Anxiety Depression Hemorrhoids Shortness of breath Immunization [...] current episode manic without psychotic features, severe ([facility]) - ARIPiprazole (ABILIFY) 10 mg tablet; Take [...] Steele 08/18/23 1128 documented in this encounter [facility] 08-03-2023 Miscellaneous Notes Formattin g of this note might be different from the original. Patient states he needs a letter to give t child support stating he is unable to work so he does not go to shelter. Done documented in this encounter [facility] 08-03-2023 Telephone encount er Note Patient states he needs a letter to give t child support stating he is unable to work so he does not go to shelter. [facility] 08-03-2023 Telephone encount er Note Done [facility] 05-27-2023 Evaluation note Encounter Date [...] Pain of left thumb (ICD-10 - M79.645) [facility] Other 08-15-2023 Evaluation note* Encounter Date Diagnosis Assessment Notes Treatment Notes Treatment Clinical Notes Feb, Sprain of metacarpophalangeal joint of left thumb, subsequent encounter (ICD-10 - S63.642D) As patient was unable to utlize the splint we provided, instructed on over the counter lower profile spica splint to allow rest to the joint while it recovers. Continue to avoid strenuous use of the thumb. [facility] Other 07-24-2023 Evaluation note* Encounter Date Diagnosis [...] appropriate use of splinting during healing period. [facility] Other 09-09-2022 Evaluation + Plan note Future Scheduled Tests Laboratory* Semen Analysis Post Vasectomy 04/04/22 * Semen Analysis Post Vasectomy 04/04/22 [facility] 09-09-2022 Hospital Discharge instructions Patient Education 04/04/2022 [...] 07/13/2006 Document Revised: 07/15/2018 Document Reviewed: 08/15/2017 [employer] Patient Education 2020 [employer]. Follow Up Care 02/25/2022 09:09:29 With:HERMES ESPOSITO, Keegan Ryder, URL Address: [address] [place], [place] [id number]- When: Unknown [facility] [place] 08-23-2022 Hospital Discharge instructions Patient Education 03/18/2022 [...] Follow these instructions at home: Medicines Take fyau-wlv-ycrusvc and prescription medicines only as told by [...] 01/30/2006 Document Revised: 06/25/2018 Document Reviewed: 10/09/2017 [employer] Patient Education 2020 [employer]. Follow Up Care 03/05/2022 11:43:44 With:HERMES ESPOSITO, Keegan Ryder, URL Address: [facility] [address], [place] [id number] When: Unknown [facility] Evaluation + Plan note Future Appointments Appointment Date:04/04/2022 09:45:00 AM Scheduled Provider:Keegan MIRZA MD Location:[facility] Appointment Type:URO Office Visit [facility] evaluwzrec noteNo assessment information available [facility] Work Phone: Evaluplioe note* Diagnosis Filiform wart- Primary Bipolar disorder, current episode manic without psychotic features, severe ([facility]-HCC) [facility] N[facility]ative - Reported* Type Description Date Medical History anxiety Medical History depression Medical History gout Surgical History vasectomy 2021 [facility] Other Hospital course Narrative No data available for this section [facility] Hospital Discharge instructions No data available for this section [facility] Center[facility]Not on filedocumented in this encounter [facility]* Attachments The following attachments cannot be sent through Care Everywhere. * Bipolar disorder (Belgian) * Warts on the Skin (Belgian) [facility] No data available for this section [facility] Reason for referral (narrative)* Consultation (Routine) - Pending Review Specialty Diagnoses / Procedures Referred By Maliha petersen Referred To Contact Dermatology Diagnoses Filiform wart Silvia Easton, CAREER SERVICES COORDINATOR-VENEER JOINTER OPERATOR [address] [place] [address] Billie Jacobs MD [address], [facility] [address] [place] [address] Referral ID Status Reason Start Date Expiration Date Visits Requested Visits Authorized [id number] Pending Review Specialty Services Required 08/18/2023 08/17/2024 1 1 [facility] Summary Purpose Family History No Family History [...] CREATED AUTHOR AUTHOR'S ORGANIZ ATION 05/14/2023 [facility] DATE CREATED AUTHOR AUTHOR'S ORGANIZ ATION 08/21/2023 [facility] DATE CREATED AUTHOR AUTHOR'S ORGANIZ ATION 05/05/2024 [facility] REASON FOR VISIT (unrecogniz ed [...] March 29, 2024 End: March 29, 2024 Specialty Plant Supervisor Relationship Specialty Start Date End Date Silvia Easton APRN-VENEER JOINTER OPERATOR [address] [place] [address] PCP - General Family Medicine 05/07/23 Team [...] BE BASED ON THE PRIMARY CLINICAL RECORDS. [facility]. provides no warranty or guarantee of the accuracy or completeness of information in this document.
--- NOTE | 2024-05-16 22:08 | ECG_ITS ---
[facility] Test Date: 2024-05-16 Pat Name: SARAH REA Department: Room: - Gender: Male Rn Post Partum: : 1985 Requested By: Shira Easton Order Number: [id number] Reading MD: BRANDY JOSE Measurements Intervals [place] Rate: 74 P: 16 CT: 110 QRS: 28 QRSD: 96 T: 40 QT: 382 QTc: 409 Interpretive Statements 1100 Sinus rhythm [address] interval 9150 abnormal ECG Compared to ECG 12/31/2023 13:53:11 No significant changes Electronically Signed On 05-17-2024 6:39:13 EDT by BRANDY JOSE
--- NOTE | 2024-05-16 22:08 | XR_ITS ---
The [address] [address] Patient Name: SARAH REA MRN: [id number] date: 1985 Sex: M Assigned Patient Location: ER Current Patient Location: Accession/Order Number: [id number] Exam Date: 05/16/2024 23:30 Report Date: 05/17/2024 00:52 At the request of: OMID MENON Procedure: XR chest 1V EXAM: XR chest 1V HISTORY: CP COMPARISON: Chest radiograph 12/31/2023, CT angiography chest 05/30/2023 TECHNIQUE: Single portable view of the chest FINDINGS: Lungs symmetrically and adequately inflated. No focal consolidation or evidence of pulmonary edema. No pneumothorax or significant pleural effusion. Normal cardiomediastinal contours. No acute osseous abnormality. XR/XR chest 1V IMPRESSION: No acute cardiopulmonary findings. Electronically authenticated by: JUMANA CHAIREZ Date: 05/17/2024 00:52
--- NOTE | 2024-05-16 22:17 | ED.CHESTPAI1 ---
HPI - Chest Pain General Chief Complaint: Chest Pain Stated Complaint: CHEST PAIN Time Seen by Provider: 05/16/24 21:45 Source: patient Mode of arrival: walk-in History of Present Illness HPI narrative: 38-year-old male presents for chest pain. It woke him up just before coming into the emergency department. It was moving all around his chest but it seems to be better now. He has a history of anxiety and panic attacks and no history of heart disease. He was going to be getting up for work. No trauma or fever or back pain. He does not complain to me of shortness of breath. Related Data Home Medications ?Medication ?Instructions ?Recorded ?Confirmed bupropion HCl 300 mg 24 hr tablet, 300 mg PO DAILY 02/07/23 04/24/24 extended release (Wellbutrin XL) fluoxetine 10 mg capsule (Prozac) 10 mg PO DAILY 02/07/23 04/24/24 hydroxyzine HCl 25 mg tablet 25 mg PO Q8H PRN itching 05/26/23 04/24/24 benztropine 0.5 mg tablet 0.5 mg PO 10/29/23 cariprazine 1.5 mg capsule 1.5 mg PO DAILY 10/29/23 04/24/24 (Vraylar) trazodone 50 mg tablet 150 mg PO .qhs 10/29/23 04/24/24 buspirone 7.5 mg tablet mg 04/24/24 Previous Rx's ?Medication ?Instructions ?Recorded hyoscyamine sulfate 0.125 mg 0.125 mg PO Q6H PRN abdominal pain 10/29/23 tablet (Levsin) #12 tabs ondansetron 4 mg disintegrating 4 mg PO Q6H PRN nausea and 10/29/23 tablet vomiting #12 tabs naproxen sodium 550 mg tablet 550 mg PO BID PRN pain #10 tabs 12/31/23 Allergies Allergy/AdvReac Type Severity Reaction Status Date / Time No Known Drug Allergies Allergy Verified 04/24/24 21:12 Review of Systems ROS Narrative A ten point review of systems is negative except as noted above. PFSH PFS Social History Smoking status: Current every day smoker Little interest or pleasure in doing things: nearly every day Feeling down, depressed, or hopeless: nearly every day Exam Narrative Exam Narrative: Nurses note and vital signs reviewed and patient is not hypoxic. General: The patient appears well and in no apparent distress. Patient is resting comfortably on cart. Skin: Warm, dry, no pallor noted. There is no rash noted. Head: Normocephalic, atraumatic Eye: Normal conjunctiva, no drainage Ears, Nose, Mouth, and Throat: oral mucosa is moist. Nares patent. Cardiovascular: Regular Rate and Rhythm Respiratory: Patient is in no distress, no accessory muscle use, lungs are clear to auscultation, no wheezing, rales or rhonchi Back: non-tender GI: Soft and nontender Musculoskeletal: The patient has no evidence of calf tenderness, no pitting edema, symmetrical pulses noted bilaterally Neurological: A&O, normal speech Psychiatric: Cooperative Constitutional Vital Signs, click to edit/add: Last Vital Signs Temp 98.0 F 05/16/24 21:44 Pulse 75 05/16/24 21:44 Resp 20 05/16/24 21:44 BP 152/92 H 05/16/24 21:44 Pulse Ox 99 05/16/24 21:44 O2 Del Method Room Air 05/16/24 21:44 Course Vital Signs Vital signs: Vital Signs Temperature 98.0 F 05/16/24 21:44 Pulse Rate 75 05/16/24 21:44 Respiratory Rate 20 05/16/24 21:44 Blood Pressure 152/92 H 05/16/24 21:44 Pulse Oximetry 99 05/16/24 21:44 Oxygen Delivery Method Room Air 05/16/24 21:44 Temperature 98.0 F 05/16/24 21:44 Pulse Rate 75 05/16/24 21:44 Respiratory Rate 20 05/16/24 21:44 Blood Pressure 152/92 H 05/16/24 21:44 Pulse Oximetry 99 05/16/24 21:44 Oxygen Delivery Method Room Air 05/16/24 21:44 MDM - Chest Pain MDM Narrative Medical decision making narrative: His workup is negative. My clinical impression is that he has had a panic attack. He is able to be discharged home and was given a work note. Findings were discussed with the patient. Differential Diagnosis Differential diagnosis: Likely pneumothorax, st elevation myocardial infarction, chest pain and other (Anxiety) Lab Data Attestation: I reviewed the patient's lab results. Labs: Lab Results 05/16/24 Range/Units 22:05 WBC 5.0 (4.0-11.0) 10^3/uL RBC 4.28 L (4.70-6.10) 10^6/uL Hgb 13.1 L (14.0-18.0) g/dL Hct 38.7 L (42.0-54.0) % MCV 90.4 (80.0-94.0) fL MCH 30.6 (25.9-34.0) pg MCHC 33.9 (29.9-35.2) g/dL RDW 13.1 (11.0-15.0) % Plt Count 238 (150-450) 10^3/uL MPV 10.2 (9.5-13.5) fL Neut % (Auto) 58.2 (43.0-75.0) % Lymph % (Auto) 30.4 (20.5-60.0) % [place] % (Auto) 8.0 (1.7-12.0) % Eos % (Auto) 2.0 (0.9-7.0) % Baso % (Auto) 0.8 (0.2-2.0) % Neut # (Auto) 2.9 (1.4-6.5) 10^3/uL Lymph # (Auto) 1.5 (1.2-3.8) 10^3/uL [place] # (Auto) 0.4 (0.3-0.8) 10^3/uL Eos # (Auto) 0.1 (0.0-0.7) 10^3/uL Baso # (Auto) 0.0 (0.0-0.1) 10^3/uL Abs Immat Gran (auto) 0.03 (0.00-0.03) 10^3/uL Imm/Tot Granulo (auto) 0.6 H (0.0-0.5) % Sodium 141 (136-145) mmol/L Potassium 3.2 L (3.5-5.1) mmol/L Chloride 107 (98-107) mmol/L Carbon Dioxide 23.7 (21.0-32.0) mmol/L Anion Gap 13.5 BUN 3.0 L (7.0-18.0) mg/dL Creatinine 1.21 (0.70-1.30) mg/dL Est GFR ( Amer) >60 (>=60 mL/min/1.73m^2) Est GFR (Non-Af Amer) >60 (>=60 mL/min/1.73m^2) BUN/Creatinine Ratio 2.5 Glucose 130 H (74-106) mg/dL Calcium 8.6 (8.5-10.1) mg/dL Troponin I High Sens <4.0 L (4.0-76.1) pg/mL Imaging Data Chest x-ray: My impression: No acute findings ECG Data Attestation: I personally reviewed and interpreted this ECG as follows: (EKG on my interpretation shows normal sinus rhythm with rate of 74 and no acute change) Heart Score History: Slightly/Non-Suspicious ECG: Normal Age: <45 years Risk Factors: No Risk Factors Troponin: <Normal Limit Total Heart Score Recommendations & Risks:: 0 Discharge Plan Discharge Chief Complaint: Chest Pain Clinical Impression: Anxiety, Chest pain Patient Disposition: Home, Self-Care Time of Disposition Decision: 23:45 Condition: Good Mode of Transportation: Private Vehicle Prescriptions / Home Meds: No Action fluoxetine [Prozac] 10 mg capsule 10 mg PO DAILY bupropion HCl [Wellbutrin XL] 300 mg tablet extended release 24 hr 300 mg PO DAILY hydroxyzine HCl 25 mg tablet 25 mg PO Q8H PRN (Reason: itching) trazodone 50 mg tablet 150 mg PO .qhs Vraylar 1.5 mg capsule 1.5 mg PO DAILY benztropine 0.5 mg tablet 0.5 mg PO Patient Comments: started today hyoscyamine sulfate [Levsin] 0.125 mg tablet 0.125 mg PO Q6H PRN (Reason: abdominal pain) Qty: 12 0RF ondansetron 4 mg tablet,disintegrating 4 mg PO Q6H PRN (Reason: nausea and vomiting) Qty: 12 0RF naproxen sodium 550 mg tablet 550 mg PO BID PRN (Reason: pain) Qty: 10 0RF buspirone 7.5 mg tablet Print Language: Turkish Instructions: Chest Pain (ED), Anxiety (ED) Referrals: SILVIA OWENS [Primary Care Provider] - 1 week
[2024-05-16 23:04] LABS: Basophils Percent Auto 0.8 % (0.2-2.0); Eosinophils Absolute Auto 0.1 10^3/uL (0.0-0.7); Hematocrit 38.7 % (42.0-54.0); Hemoglobin 13.1 g/dL (14.0-18.0); Immature Granulocytes Abs Auto 0.03 10^3/uL (0.00-0.03); Immature Granulocytes Pct Auto 0.6 % (0.0-0.5); Lymphocytes Absolute Auto 1.5 10^3/uL (1.2-3.8); Lymphocytes Percent Auto 30.4 % (20.5-60.0); Mean Corpuscular HGB Conc 33.9 g/dL (29.9-35.2); Mean Corpuscular Hemoglobin 30.6 pg (25.9-34.0); Mean Corpuscular Volume 90.4 fL (80.0-94.0); Mean Platelet Volume 10.2 fL (9.5-13.5); Monocytes Absolute Auto 0.4 10^3/uL (0.3-0.8); Neutrophils Absolute Auto 2.9 10^3/uL (1.4-6.5); Neutrophils Percent Auto 58.2 % (43.0-75.0); Platelet Count 238 10^3/uL (150-450); Red Blood Count 4.28 10^6/uL (4.70-6.10); Red Cell Distribution Width 13.1 % (11.0-15.0)
[2024-05-16 23:18] LABS: Anion Gap 13.5; BUN Creatinine Ratio 2.5; Calcium 8.6 mg/dL (8.5-10.1); Carbon Dioxide 23.7 mmol/L (21.0-32.0); Chloride 107 mmol/L (98-107); Estimated GFR (African America >60 (>=60 mL/min/1.73m^2); Estimated GFR (Non-African Ame >60 (>=60 mL/min/1.73m^2); Glucose 130 mg/dL (74-106); Potassium 3.2 mmol/L (3.5-5.1); Sodium 141 mmol/L (136-145); Troponin I High Sensitivity <4.0 pg/mL (4.0-76.1)
== END 2024-05-16 23:53 | disposition home or self-care (01) ==
PROVIDERS: Emergency Provider Emergency Medicine; PCP Nurse Practitioner
DX: F41.9 Anxiety disorder, unspecified (principal); R07.9 Chest pain, unspecified; F17.200 Nicotine dependence, unspecified, uncomplicated
CPT/HCPCS: 36415; 71045; 80048; 84484; 85025; 93005; 99285

== ENCOUNTER 2024-06-01 21:46 | Emergency (ER) | payer BC, SELFPAY ==
[2024-06-01 21:51] VITALS: BP 136/95; PULSE 104; TEMP 36.8; O2SAT 99; BMI 35.9
--- NOTE | 2024-06-01 22:08 | ED_ITS ---
HPI HPI - General Adult General Chief complaint: Psychiatric Symptoms Stated complaint: Altered Mental Status Time Seen by Provider: 06/01/24 21:47 Source: patient Mode of arrival: walk-in Limitations: no limitations History of Present Illness HPI narrative: Patient presented to the emergency department for evaluation of anxiety. Patient states that he has been given hydroxyzine and doxepin for his panic attacks. Patient states over the last 2 months he has been sacrificing all of himself for his girlfriend and their kids. He states that his mental health has taken a decline, he is just been feeling very overwhelmed and anxious. He states they are facing a legal infection but she will release, so he has been doing everything he can to help her get out of the eviction. He states that he was trying to take an FMLA day today to get out of work because he was feeling very overwhelmed. He states that he just started having a panic attack earlier today and he wanted to get treatment for it. Has an appoint with his counselor and his psychiatrist tomorrow. Has no thoughts of suicide or self-harm. No thoughts of hurting anyone else or any others. No delusions or hallucinations. Related Data Home Medications ?Medication ?Instructions ?Recorded ?Confirmed bupropion HCl 300 mg 24 hr tablet, 300 mg PO DAILY 02/07/23 04/24/24 extended release (Wellbutrin XL) fluoxetine 10 mg capsule (Prozac) 10 mg PO DAILY 02/07/23 04/24/24 hydroxyzine HCl 25 mg tablet 25 mg PO Q8H PRN itching 05/26/23 04/24/24 benztropine 0.5 mg tablet 0.5 mg PO 10/29/23 cariprazine 1.5 mg capsule 1.5 mg PO DAILY 10/29/23 04/24/24 (Vraylar) trazodone 50 mg tablet 150 mg PO .qhs 10/29/23 04/24/24 buspirone 7.5 mg tablet mg 04/24/24 Previous Rx's ?Medication ?Instructions ?Recorded hyoscyamine sulfate 0.125 mg 0.125 mg PO Q6H PRN abdominal pain 10/29/23 tablet (Levsin) #12 tabs ondansetron 4 mg disintegrating 4 mg PO Q6H PRN nausea and 10/29/23 tablet vomiting #12 tabs naproxen sodium 550 mg tablet 550 mg PO BID PRN pain #10 tabs 12/31/23 Allergies Allergy/AdvReac Type Severity Reaction Status Date / Time No Known Drug Allergies Allergy Verified 06/01/24 21:57 Opioid HPI Opioid Management Most Recent Opioid Data: Last Pain Scale 4 12/31/23 14:45 12/31/23 Review of Systems ROS Narrative Negative unless otherwise stated in HPI PFSH PFSH Social History Smoking status: Current every day smoker Little interest or pleasure in doing things: several days Feeling down, depressed, or hopeless: nearly every day Exam Narrative Exam Narrative: General: NAD, AAOx3, no distress Neuro: Speech is clear and appropriate. Normal level of consciousness. Gait and coordination are normal. 5/5 strength in all extremities. Psych: Normal mood and affect. Judgement/competence is appropriate. Anxious, denies suicidal homicidal ideation, no hallucinations or delusions. Constitutional Vital Signs, click to edit/add: Last Vital Signs Temp 98.2 F 06/01/24 21:51 Pulse 104 H 06/01/24 21:51 Resp 18 06/01/24 21:51 BP 136/95 H 06/01/24 21:51 Pulse Ox 99 06/01/24 21:51 O2 Del Method Room Air 06/01/24 21:51 Course Vital Signs Vital signs: Vital Signs Temperature 98.2 F 06/01/24 21:51 Pulse Rate 104 H 06/01/24 21:51 Respiratory Rate 18 06/01/24 21:51 Blood Pressure 136/95 H 06/01/24 21:51 Pulse Oximetry 99 06/01/24 21:51 Oxygen Delivery Method Room Air 06/01/24 21:51 Temperature 98.2 F 06/01/24 21:51 Pulse Rate 104 H 06/01/24 21:51 Respiratory Rate 18 06/01/24 21:51 Blood Pressure 136/95 H 06/01/24 21:51 Pulse Oximetry 99 06/01/24 21:51 Oxygen Delivery Method Room Air 06/01/24 21:51 Medical Decision Making MDM Narrative Medical decision making narrative: MDM Patient with history as above presented with panic attack. History obtained from patient. Reviewed external records. Differential diagnosis considered. Overall presentation is consistent with Anxiety, panic attack Advanced guidance has been given. Vss, pex is benign at this time. Pt to fu with pcp 1-2 days for reeval, rter should sx worsen, persist or become worrysome in any way. All incidental laboratory studies, EKG, radiologic findings have been noted and discussed with patient. Patient was reevaluated with a benign exam at this time. Pt expressed understanding and agreement with plan of care at this time. Will fu as planned. Pt stable for discharge. Discharge Plan Discharge Chief Complaint: Psychiatric Symptoms Clinical Impression: Anxiety Patient Disposition: Home, Self-Care Time of Disposition Decision: 22:42 Condition: Good Prescriptions / Home Meds: No Action fluoxetine [Prozac] 10 mg capsule 10 mg PO DAILY bupropion HCl [Wellbutrin XL] 300 mg tablet extended release 24 hr 300 mg PO DAILY hydroxyzine HCl 25 mg tablet 25 mg PO Q8H PRN (Reason: itching) trazodone 50 mg tablet 150 mg PO .qhs Vraylar 1.5 mg capsule 1.5 mg PO DAILY benztropine 0.5 mg tablet 0.5 mg PO Patient Comments: started today hyoscyamine sulfate [Levsin] 0.125 mg tablet 0.125 mg PO Q6H PRN (Reason: abdominal pain) Qty: 12 0RF ondansetron 4 mg tablet,disintegrating 4 mg PO Q6H PRN (Reason: nausea and vomiting) Qty: 12 0RF naproxen sodium 550 mg tablet 550 mg PO BID PRN (Reason: pain) Qty: 10 0RF buspirone 7.5 mg tablet Print Language: Japanese Instructions: Anxiety (ED) Additional Instructions: Follow-up with your PCP in the next 1 to 2 days. Follow-up with her counselor and therapist tomorrow morning as previously discussed and scheduled Referrals: SILVIA OWENS [Primary Care Provider] - 1 week
--- OUTSIDE RECORDS SUMMARY | 2024-06-01 22:12 | XMS_ITS | CCD ---
Author Organization [facility] Care Team Providers Care Liner Inserter Name Role Phone NONE, XXXX Primary Care Physician Unavailab le REQUEST, NONE LISTED Primary Care Unavaila herminio HENDERSON, DR LEE Admitting Unavailable SANTIAGO, DR [...] Melody Smith Unavailable BAYLEE Smith Attending Provider [phone] NO FAMILY, PHYSICIAN Primary Care Provider Unava ilable Hazel Harden Unavailable Silvia Mckeon Primary Care Provid er SILVIA EASTON Attending Unavailable SILVIA EASTON Referring Unavailable SILVIA EASTON Primary Care Unavailable SILVIA EASTON Attending Unavailable SILVIA EASTON Referring Unavailable SILVIA EASTON Primary Care Unavailable NO FAMILY, PHYSICIAN Primary Care Provider Unava ilable MD Girma Arizmendi Attending Provider Girma Arizmendi Attending Unavailab le Girma Arizmendi Admitting Unavailab le NO FAMILY, PHYSICIAN Primary Care Unavailable SILVIA EASTON Primary Care Unavailable Allergies Allergy Classification Reported Allergen(s) Allergy Type Date of Onset Reaction(s) Facility (1 source) No Known Medication Allergies; Translations: [No Known Medication Allergies] Propensity to adverse reactions (disorder) [facility] Repository Medications Current Medications Medication Drug [...] day(s), # 10 cap(s), Refills(s) 0, Pharmacy: [facility] #[id number], 177, cm, 03/18/22 13:43:00 EDT, Height/Length Dosing, 135, kg, 03/18/22 13:43:00 EDT, Weight Dosing Start Date: 03/18/22 Stop Date: 03/23/22 Status: Ordered dextromethorphan hydrobromide 15 mg / guaiFENesin 400 mg / pseudoephedrine hydrochloride 60 mg oral tablet (1 source) alpha-Adrenergic Agonist, Uncompetitive N-[place]-aspart[place] e Receptor Antagonist, Sigma-1 Agonist Start: 03-29-2024 [...] noon/midday Start: 07-14-2023 take 1 capsule by [facility] in the morning FLUoxetine (PROzac) 40 [...] Date: 02/10/22 Status: Ordered Remeron Active Remeron Not-Delilah bravo microencapsulated potassium chloride 10 meq extended release [...] Problem Classification Problem Date Documented Date Episodic/Chronic Anxiety disorders (2 sources) Panic disorder [episodic paroxysmal anxiety]; Translations: [Panic attack] Onset: 4 Chronic Cardiac dysrhythmias (1 source) Palpitations Onset: 4 Episodic Contraceptive and procreative management (1 source) Sterilization [...] 4 Unclassified (1 source) bipolar Onset: 3 Viral infection (2 sources) Filiform wart; Translations: [Viral wart, unspecified] Onset: 4 08-18-2023 Episodic Past or Other Problems Problem Classification Problem Date Documented Date Episodic/Chronic Mood disorders (2 sources) Mood disorders Onset: 07-14-2023 Resolved: 08-18-2023 07-14-2023 Other aftercare (1 source) Other long-term (current) drug therapy; Translations: [OTH CUSTODIAL CURRENT DRUG THERAPY] Onset: 04-01-2022 Episodic Other [...] Test Name Value Interpretation Reference Range Facility XR hand LT min 3V*on 023 XR hand LT min 3V* [facility] [employer] Other XR hand LT min 3V* [facility] [employer] Other XR hand LT min 3V* [facility] [employer] Other XR hand LT min 3V* [facility] [address] [facility] [employer] Other XR hand LT min 3V* XRay Report [employer] Other XR hand LT min 3V* Signed [employer] Other XR hand LT min 3V* Patient: Sarah Norwood MR#: [id number] [employer] Other XR hand LT min 3V* 9 [employer] Other XR hand LT min 3V* : 1985 Acct:[id number] [employer] Other XR hand LT min 3V* Age/Sex: 37 / M ADM Date: 02/16/23 [employer] Other XR hand LT min 3V* [place] [facility] [place] Type : [facility] [employer] Other XR hand LT min 3V* Attending Dr: Melody BEACH [employer] Other XR hand LT min 3V* Copies to: ESME Gr [employer] Other XR hand LT min 3V* Ordering Provider: ESME Gr [employer] Other XR hand LT min 3V* Date of Service: 02/16/23 [employer] Other XR hand LT min 3V* XR/XR hand LT min 3V*: S69.92XA [employer] Other XR hand LT min 3V* 4 views LEFT hand plain film [employer] Other XR hand LT min 3V* COMPARISON: None [employer] Other XR hand LT min 3V* HISTORY: Hyperextension of the thumb. [employer] Other XR hand LT min 3V* ACUTE FINDINGS: None [employer] Other XR hand LT min 3V* DEGENERATIVE CHANGE: Unremarkable [employer] Other XR hand LT min 3V* SOFT TISSUE FINDINGS : Unremarkable [employer] Other XR hand LT min 3V* JOINT EFFUSION: None [employer] Other XR hand LT min 3V* POSTOP CHANGES: None [employer] Other XR hand LT min 3V* BONY MINERALIZATION: Adequate [employer] Other XR hand LT min 3V* XR/XR hand LT min 3V* [employer] Other XR hand LT min 3V* IMPRESSION: No acute findings [employer] Other XR hand LT min 3V* Impression dictated by: Donta Alvares M.D.02/16/2023 3:57 PM [employer] Other XR hand LT min 3V* Dictation Location: [place] [address] [employer] Other XR hand LT min 3V* Transcribed By: MIGUELINA 02/16/23 [facility]7 [employer] Other XR hand LT min 3V* Dictated By: Donta Alvares DO 02/16/23 1545 [employer] Other XR hand LT min 3V* Signed By: [employer] Other XR hand LT min 3V* 02/16/23 15[facility] [employer] Other ER URINE PROFILEon 2 Bilirubin Ql (U) Negative Normal NEGATIVE [facility] Comment on above: Performed By: #### E RUR #### [facility] [address] [place] [address] Dr. Sailaja Barillas Clarity (U) CLEAR Normal CLEAR [facility] Comment on above: Performed By: #### E RUR #### [facility] [address] [place] [address] Dr. Sailaja Barillas Color (U) LT. YELLOW Normal YELLOW [facility] Comment on above: Performed By: #### E RUR #### [facility] [address] [place] [address] Dr. Sailaja SWANSON A micrscopic examination will be performed if indicated. Normal The [facility] Comment on above: Performed By: #### E RUR #### [facility] [address] [place] [address] Dr. Sailaja Barillas Glucose Ql (U) Negative Normal NEGATIVE [facility] Comment on above: Performed By: #### E RUR #### [facility] [address] [place] [address] Dr. Sailaja Barillas Hemoglobin Ql (U) Negative Normal NEGATIVE [facility] Comment on above: Performed By: #### E RUR #### [facility] [address] [place] [address] Dr. Sailaja Barillas Ketones Ql (U) Negative Normal NEGATIVE The [facility] Comment on above: Performed By: #### E RUR #### [facility] [address] [place] [address] Dr. Sailaja Barillas LEUKOCYTES Negative Normal NEGATIVE [facility] Comment on above: Performed By: #### E RUR #### [facility] [address] [place] [address] Dr. Sailaja Barillas Nitrite Ql (U) Negative Normal NEGATIVE [facility] Comment on above: Performed By: #### E RUR #### [facility] [address] [place] [address] Dr. Sailaja Barillas pH (U) 7.0 [pH] Normal 5-9 The [facility] Comment on above: Performed By: #### E RUR #### [facility] [address] [place] [address] Dr. Sailaja Barillas SPEC GRAVITY 1.015 Normal 1.005-<=1.025 The [facility] Comment on above: Performed By: #### E RUR #### [facility] [address] [place] [address] Dr. Sailaja Barillas UA PROTEIN Negative Normal NEGATIVE/ TRACE The [facility] Comment on above: Performed By: #### E RUR #### [facility] [address] [place] [address] Dr. Sailaja Barillas UR MICRO IND NOT INDICATED Normal The [facility] Comment on above: Performed By: #### E RUR #### [facility] [address] [place] [address] Dr. Sailaja Barillas Urobilinogen Qn (U) 0.2 {Gael'U}/dL Normal 0.2 - 1.0 [facility] Comment on above: Performed By: #### E RUR #### [facility] [address] [place] [address] Dr. Sailaja Barillas CBC AUTO DIFFon 03-20-2022 BASO # 0.1 103/ul Normal 0.0-0.1 The [facility] Comment on above: Performed By: #### C BC #### [facility] [address] [place] [address] Dr. Sailaja Barillas Basophils/100 WBC (Bld) 0.7 % Normal 0.2-2.0 The [facility] Comment on above: Performed By: #### C BC #### [facility] [address] [place] [address] Dr. Sailaja Barillas EO # 0.1 103/ul Normal 0.0-0.7 The [facility] Comment on above: Performed By: #### C BC #### [facility] [address] [place] [address] Dr. Sailaja Barillas Eosinophils/100 WBC (Bld) 0.9 % Normal 0.9-7.0 [facility] Comment on above: Performed By: #### C BC #### [facility] [address] [place] [address] Dr. Sailaja Barillas Erythrocyte distribution width (RBC) [Ratio] 12.9 % Normal 11.0-15.0 The [facility] Comment on above: Performed By: #### C BC #### [facility] [address] [place] [address] Dr. Sailaja Barillas Hematocrit (Bld) [Volume fraction] 39.4 % Critically low 42.0-54.0 The [facility] Comment on above: Performed By: #### C BC #### [facility] [address] [place] [address] Dr. Sailaja Barillas Hemoglobin (Bld) [Mass/Vol] 13.5 g/dL Critically low 14.0-18.0 [facility] Comment on above: Performed By: #### C BC #### [facility] [address] [place] [address] Dr. Sailaja Barillas IG # 0.03 10e3/ul Normal 0.00-0.03 The [facility] Comment on above: Performed By: #### C BC #### [facility] [address] [place] [address] Dr. Sailaja Barillas IG % 0.3 % Normal 0.0-0.5 The [facility] Comment on above: Performed By: #### C BC #### [facility] [address] [place] [address] Dr. Sailaja Barillas LYMPH # 2.6 103/ul Normal 1.2-3.8 The [facility] Comment on above: Performed By: #### C BC #### [facility] [address] [place] [address] Dr. Sailaja Barillas Lymphocytes/100 WBC (Bld) 29.4 % Normal 20.5-60.0 [facility] Comment on above: Performed By: #### C BC #### [facility] [address] [place] [address] Dr. Sailaja Barillas MANUAL DIFF REQ NO Normal The [facility] Comment on above: Performed By: #### C BC #### [facility] [address] [place] [address] Dr. Sailaja Barillas MCH (RBC) [Entitic mass] 30.4 pg Normal 25.9-34.0 [facility] Comment on above: Performed By: #### C BC #### [facility] [address] [place] [address] Dr. Sailaja Barillas MCHC (RBC) [Mass/Vol] 34.3 g/dL Normal 29.9-35.2 [facility] Comment on above: Performed By: #### C BC #### [facility] [address] [place] [address] Dr. Sailaja Barillas MCV (RBC) [Entitic vol] 88.7 fL Normal 80.0-94.0 [facility] Comment on above: Performed By: #### C BC #### [facility] [address] [place] [address] Dr. Sailaja Barillas MONO # 0.7 103/ul Normal 0.3-0.8 [facility] Comment on above: Performed By: #### C BC #### [facility] [address] [place] [address] Dr. Sailaja Barillas Monocytes/100 WBC (Bld) 8.4 % Normal 1.7-12.0 [facility] Comment on above: Performed By: #### C BC #### [facility] [address] [place] [address] Dr. Sailaja Barillas NEUT # 5.3 103/ul Normal 1.4-6.5 The [facility] Comment on above: Performed By: #### C BC #### [facility] [address] [place] [address] Dr. Sailaja Barillas Neutrophils/100 WBC (Bld) 60.3 % Normal 43.0-75.0 The [facility] Comment on above: Performed By: #### C BC #### [facility] [address] [place] [address] Dr. Sailaja Barillas Platelet mean volume (Bld) [Entitic vol] 9.6 fL Normal 9.5-13.5 [facility] Comment on above: Performed By: #### C BC #### [facility] [address] [place] [address] Dr. Sailaja Barillas PLT 242 103/ul Normal 150-450 [facility] Comment on above: Performed By: #### C BC #### [facility] [address] [place] [address] Dr. Sailaja Barillas RBC 4.44 106/ul Critically low 4.70-6.10 [facility] Comment on above: Performed By: #### C BC #### [facility] [address] [place] [address] Dr. Sailaja Barillas WBC 8.8 103/ul Normal 4.0-11.0 [facility] Comment on above: Performed By: #### C BC #### [facility] [address] [place] [address] Dr. Sailaja Barillas ER URINE PROFILEon 2 Bilirubin Ql (U) Negative Normal NEGATIVE [facility] Comment on above: Performed By: #### E RUR #### [facility] [address] [place] [address] Dr. Sailaja Barillas Clarity (U) CLEAR Normal CLEAR [facility] Comment on above: Performed By: #### E RUR #### [facility] [address] [place] [address] Dr. Sailaja Barillas Color (U) YELLOW Normal YELLOW [facility] Comment on above: Performed By: #### E RUR #### [facility] [address] [place] [address] Dr. Sailaja Barillas ERUAHD A micrscopic examination will be performed if indicated. Normal The [facility] Comment on above: Performed By: #### E RUR #### [facility] [address] [place] [address] Dr. Sailaja Barillas Glucose Ql (U) Negative Normal NEGATIVE [facility] Comment on above: Performed By: #### E RUR #### [facility] [address] [address] [address] Sailaja Barillas Hemoglobin Ql (U) Negative Normal NEGATIVE [facility] Comment on above: Performed By: #### E RUR #### [facility] [address] [place] [address] Dr. Sailaja Barillas Ketones Ql (U) Negative Normal NEGATIVE [facility] Comment on above: Performed By: #### E RUR #### [facility] [address] [place] [address] Dr. Sailaja Barillas LEUKOCYTES Negative Normal NEGATIVE [facility] Comment on above: Performed By: #### E RUR #### [facility] [address] [place] [address] Dr. Sailaja Barillas Nitrite Ql (U) Negative Normal NEGATIVE [facility] Comment on above: Performed By: #### E RUR #### [facility] [address] [place] [address] Dr. Sailaja Barillas pH (U) 5.5 [pH] Normal 5-9 [facility] Comment on above: Performed By: #### E RUR #### [facility] [address] [place] [address] Dr. Sailaja Barillas SPEC GRAVITY 1.025 Normal 1.005-<=1.025 [facility] Comment on above: Performed By: #### E RUR #### [facility] [address] [place] [address] Dr. Sailaja Barillas UA PROTEIN Negative Normal NEGATIVE/ TRACE The [facility] Comment on above: Performed By: #### E RUR #### [facility] [address] [place] [address] Dr. Sailaja Barillas UR MICRO IND NOT INDICATED Normal [facility] Comment on above: Performed By: #### E RUR #### [facility] [address] [place] [address] Dr. Sailaja Barillas Urobilinogen Qn (U) 0.2 {Gael'U}/dL Normal 0.2 - 1.0 [facility] Comment on above: Performed By: #### E RUR #### [facility] [address] [place], [place] [id number] Dr. Sailaja Barillas PROF CHEM 8 (BAS METB)on Anion gap [Moles/Vol] 11.1 mmol/L Normal [facility] Comment on above: Performed By: #### B MP #### [facility] [address] [place] [address] Dr. Sailaja Barillas Calcium [Mass/Vol] 8.5 mg/dL Normal 8.5-10.1 [facility] Comment on above: Performed By: #### B MP #### [facility] [address] [place] [address] Dr. Sailaja Barillas Chloride [Moles/Vol] 106 mmol/L Normal 98-107 The [facility] Comment on above: Performed By: #### B MP #### [facility] [address] [place] [address] Dr. Sailaja Barillas CO2 [Moles/Vol] 26.8 mmol/L Normal 21.0-32.0 The [facility] Comment on above: Performed By: #### B MP #### [facility] [address] [place] [address] Dr. Sailaja Barillas Creatinine [Mass/Vol] 0.97 mg/dL Normal 0.70-1.30 The [facility] Comment on above: Performed By: #### B MP #### [facility] [address] [place] [address] Dr. Sailaja Barillas EGFR-AF PRYDEINIG >60 Normal >=60 The [facility] Comment on above: Performed By: #### B MP #### [facility] [address] [place] [address] Dr. Sailaja Barillas EGFR-NON AF PRYDEINIG >60 Normal >=60 The [facility] Comment on above: Performed By: #### B MP #### [facility] [address] [place] [address] Dr. Sailaja Barillas Glucose [Mass/Vol] 102 mg/dL Normal 74-106 [facility] Comment on above: Performed By: #### B MP #### [facility] [address] [place] [address] Dr. Sailaja Barillas Potassium [Moles/Vol] 3.9 mmol/L Normal 3.5-5.1 [facility] Comment on above: Performed By: #### B MP #### [facility] [address] [address] [address] Sailaja Barillas Sodium [Moles/Vol] 140 mmol/L Normal 136-145 [facility] Comment on above: Performed By: #### B MP #### [facility] [address] [address] [address] Sailaja Barillas Urea nitrogen [Mass/Vol] 10.0 mg/dL Normal 7.0-18.0 [facility] Comment on above: Performed By: #### B MP #### [facility] [address] [place] [address] Dr. Sailaja Barillas Urea nitrogen/Creatinin e [Mass ratio] 10.3 mg/mg Normal [facility] Comment on above: Performed By: #### B MP #### [facility] [address] [place] [address] Dr. Sailaja Barillas US SCROTUM W VASCULAR ORGANo n 03-20-2022 US SCROTUM W VASCULAR ORGAN EXAM: US SCROTUM W VASCULAR ORGAN HISTORY: Postoperative pain COMPARISON: None. TECHNIQUE: Alan scale imaging as well as color and duplex Doppler ultrasound examination of the scrotum and its contents were performed. FINDINGS: The testes are normal in size and echotexture without focal abnormality. The right testicle per testing machine operator although appears slightly more proximal within the [...] by: LILA JEFFREY Date: 2022-03-20 18:55 Normal [facility] XR KNEE RT 4V or >on 022 [...] by: SANIYA MATOS Date: 2022-03-01 13:40 Normal [facility] Vital Signs Date Time Vital Sign Value Performing Clinician Facility 03-29-2024 09:08-0400 Body height 177.8 cm PHYSICIAN NO [facility] 03-29-2024 09:08-0400 Body mass index (BMI) [Ratio] 36.3 kg/m2 PHYSICIAN NO [facility] 03-29-2024 09:08-0400 Body temperature 97.7 [degF] PHYSICIAN NO [facility] 03-29-2024 09:08-0400 Body weight 114.98 kg PHYSICIAN NO [facility] 03-29-2024 09:08-0400 Diastolic blood pressure 82 mm[Hg] PHYSICIAN NO [facility] 03-29-2024 09:08-0400 Heart rate 79 /min PHYSICIAN NO [facility] 03-29-2024 09:08-0400 Respiratory rate 18 /min PHYSICIAN NO [facility] 03-29-2024 09:08-0400 SaO2% (BldA) [Mass fraction] 98 % PHYSICIAN NO [facility] 03-29-2024 09:08-0400 Systolic blood pressure 119 mm[Hg] PHYSICIAN NO [facility] 08-18-2023 10:56-0500 Body height 177.8 cm Silvia SEGOVIA Work Phone: [employer] 08-18-2023 10:56-0500 Body mass index (BMI) [Ratio] 38.48 kg/m2 Silvia SEGOVIA Work Phone: [employer] 08-18-2023 10:56-0500 Body temperature 97.81 [degF] Silvia Easton APRN-TALENT ACQUISITION LEAD Work Phone: [employer] 08-18-2023 10:56-0500 Body weight 121.66 kg Silvia Easton APRN-TALENT ACQUISITION LEAD Work Phone: [employer] 08-18-2023 10:56-0500 Diastolic blood pressure 78 mm[Hg] Silvia Easton APRN-TALENT ACQUISITION LEAD Work Phone: [employer] 08-18-2023 10:56-0500 Heart rate 83 /min Silvia Easton APRN-TALENT ACQUISITION LEAD Work Phone: [employer] 08-18-2023 10:56-0500 SaO2% (BldA) [Mass fraction] 93 % Silvia Eatson APRN-TALENT ACQUISITION LEAD Work Phone: [employer] 08-18-2023 10:56-0500 Systolic blood pressure 120 mm[Hg] Silvia Easton APRN-TALENT ACQUISITION LEAD Work Phone: [employer] 02-16-2023 15:15-0400 Body height 177.8 cm Melody Smith Other [employer] Other 02-16-2023 15:15-0400 Body mass index (BMI) [Ratio] 34.15 kg/m2 Melody Smith Other [employer] Other 02-16-2023 15:15-0400 Body weight 107.96 kg Melody Smith Other [employer] Other 04-04-2022 10:10-0400 Respiratory rate 16 /min Keegan MIRZA [facility] 03-18-2022 13:34-0400 Blood Pressure Location Keegan MIRZA [facility] 03-18-2022 13:34-0400 Diastolic blood pressure 99 mm[Hg] Keegan MIRZA [facility] 03-18-2022 13:34-0400 Heart rate 83 /min Keegan MIRZA [facility] 03-18-2022 13:34-0400 Systolic blood pressure 158 mm[Hg] Keegan MIRZA [facility] Encounters Encounter Date Encounter Type Care Provider Facility Start: 05-22-2024 End: 05-22-2024 Emergency department patient visit [facility] Start: 05-03-2024 ambulatory Girma Cardoso acility:[facility] Start: 03-29-2024 End: 03-29-2024 ambulatory PHYSICIAN NO [facility] Work Phone: Start: 03-29-2024 End: 03-29-2024 Patient encounter procedure PHYSICIAN NO [facility] Physician [facility] Work Phone: Start: 02-18-2024 Registered Recurring PHYSICIAN NO [facility] Start: 12-31-2023 Non-patient / Non-visit PHYSICIAN NO [facility] Physician [facility] Work Phone: Start: 08-18-2023 End: 08-18-[address] [facility] Start: 08-18-2023 End: 08-18-2023 Office outpatient visit 15 minutes Silvia [facility] PUBLIC EMPLOYMENT MEDIATOR-TALENT ACQUISITION LEAD Work Phone: [facility] Comment on above: Filiform wart (Prima ry Dx); Bipolar disorder, current episode manic without psychotic features, severe ([facility]) Start: 08-03-2023 Telephone encounter Tammie Kennedy MA [facility] Start: 07-14-2023 End: 07-14-2023 ambulatory [facility] Start: 05-27-2023 End: 05-27-2023 ambulatory Hazel Harden Other [employer] Other Start: 05-27-2023 Office outpatient ne w 45 minutes Hazel Harden [facility] Start: 05-14-2023 End: 05-14-2023 ambulatory PHYSICIAN NO [facility] Work Phone: Start: 05-14-2023 End: 05-14-2023 Patient encounter procedure PHYSICIAN NO [facility] [address] Work Phone: Start: 03-10-2023 End: 03-10-2023 ambulatory Melody Smith Other [employer] Other Start: 03-10-2023 Office outpatient visit 15 minutes Melody Smith [facility] Start: 02-16-2023 End: 02-16-2023 Patient encounter procedure PHYSICIAN NO [facility] Start: 02-16-2023 End: 02-16-2023 ambulatory Melody Smith Other [employer] Other Start: 02-16-2023 Office outpatient ne w 30 minutes Melody Smith [facility] Start: 04-08-2022 ambulatory Facility:[facility] [place] Start: 04-04-2022 End: 04-04-2022 Patient encounter procedure Keegan MIRZA [facility] Start: 03-31-2022 End: 03-31-2022 ambulatory EMELY HONEYCUTT Facility:[facility]1 Start: 03-20-2022 End: 03-20-2022 ambulatory NONE LISTED REQUEST Facility:[facility] Start: 03-18-2022 End: 03-18-2022 Lab Drop off Keegan MIRZA [facility] Start: 03-18-2022 End: 03-18-2022 Patient encounter procedure Keegan MIRZA [facility] Start: 03-01-2022 End: 03-01-2022 ambulatory NONE LISTED REQUEST Facility: Procedures Date Procedure Procedure Detail Performing Clinician [...] Td Vaccines (8 - Td or Tdap) [facility] Start: 08-18-2024 Adult BMI Screening Adult BMI Screen ing [facility] Start: 08-18-2024 Depression Screening Depression Scre ening [facility] Start: 08-18-2024 Tobacco Screening Tobacco Screening [facility] Start: 07-14-2024 Adult BMI Follow Up Plan Adult BMI Follow Up Plan [facility] Start: 07-14-2024 Depression Screening Depression Scre ening [facility] Start: 07-14-2024 Tobacco Screening Tobacco Screening [facility] Start: 06-09-2024 Adult BMI Screening Adult BMI Screen ing [facility] Start: 08-18-2023 End: 08-18-2023 Patient encounter procedure 08/18/2023 11:00 AM EST [facility] [address] [place] [id number] Silvia Easton, PUBLIC EMPLOYMENT MEDIATOR-TALENT ACQUISITION LEAD [address] [place] [address] [facility] - [facility] Start: 05-14-2023 MRI of left hand MR hand LT wo con F [facility] Start: 03-27-2023 COVID-19 Vaccine ( season) COVID-19 Vaccine ( season) [facility] Start: 03-27-2023 Influenza vaccination Influenza Vacc ine [facility] Immunizations Immunization Date Immunization Notes Care Provider Fa cility 02-28-2021 COVID-19 Vaccine, vector-nr, rS-Ad26, PF, 0.5mL Tammie Love [facility] 02-24-2021 SARS-CoV-2 (COVID-19 ) Ad26 vaccine, recombinant Keegan MIRZA [facility] 06-14-2020 Influenza, injectabl e, Madin [place] Canine Kidney, preservative free, quadrivalent Tammie Love [facility] 06-14-2020 pneumococcal polysaccharide vaccine, 23 valent Tammie Love [facility] 06-14-2020 influenza virus vaccine, unspecified formulation Tammie Love [facility] 05-12-2018 influenza, injectabl e, quadrivalent, preservative free Tammie Love [facility] 05-12-2018 tetanus toxoid, redu mey diphtheria toxoid, and acellular pertussis vaccine, adsorbed Tammie Love [facility] 01-05-2002 hepatitis B vaccine, pediatric or pediatric/adolescent dosage [facility] 04-23-2000 hepatitis B vaccine, pediatric or pediatric/adolescent dosage [facility] 02-20-2000 hepatitis B vaccine, pediatric or pediatric/adolescent dosage [facility] 02-20-2000 tetanus and diphther ia toxoids, adsorbed, preservative free, for adult use (2 Lf of tetanus toxoid and 2 Lf of diphtheria toxoid) [facility] 01-21-2000 hepatitis B vaccine, pediatric or pediatric/adolescent dosage [facility] 05-17-1993 measles, mumps and rubella virus vaccine [facility] 09-15-1990 diphtheria, tetanus toxoids and pertussis vaccine [facility] 09-15-1990 haemophilus influenz ae type b vaccine, conjugate unspecified formulation [facility] 09-15-1990 trivalent poliovirus vaccine, live, oral [facility] 01-31-1987 diphtheria, tetanus toxoids and pertussis vaccine [facility] 01-31-1987 measles, mumps and rubella virus vaccine [facility] 01-31-1987 trivalent poliovirus vaccine, live, oral [facility] 05-17-1986 diphtheria, tetanus toxoids and pertussis vaccine [facility] 03-15-1986 diphtheria, tetanus toxoids and pertussis vaccine [facility] 03-15-1986 trivalent poliovirus vaccine, live, oral [facility] 01-11-1986 diphtheria, tetanus toxoids and pertussis vaccine [facility] 01-11-1986 trivalent poliovirus vaccine, live, oral [facility] NEGATED: Highlighted row has not occurred!02-10-2022 SARS-CoV-2 mRNA (tozinameran 5y-11y) vaccine Keegan MIRZA [facility] Payers Date Payer Category Payer Unknown [id number] 2023 Self-pay 2022 Blue Cross Blue [facility] [id number] 2022 Unknown ZAN MAURICIO SS (PPO) [id number] 2022-Present [phone] [address] [place] [address] [id number] 1985 Unknown [id number] 1985 Unknown [id number] 93 1985 Unknown [id number] 93 1985 Unknown [id number] 1985 Unknown [id number] 1985 Unknown [id number] 286 1959 Unknown [id number] 1959 Unknown [id number] 1959 Unknown [id number] Unknown [id number] 31 Social History Date Type Detail Facility Start: 03-18-2022 Tobacco smoking status Light t obacco smoker (finding) [facility] Tobacco smoking status Smoker (finding) [facility] [place] Start: 09-05-2020 End: 09-26-2020 Sex Assigned At Male [facility] [place] Start: 04-04-2022 End: 05-07-2023 Tobacco smoking status Ex-smoker (finding) [facility] Start: 1985 Sex Assigned At Male F [facility] History of tobacco use Cigarette Smoker P [employer] Start: 05-07-2023 Tobacco use and exposure Smoke less tobacco non-user [facility] Start: 07-14-2023 End: 08-18-2023 Alcohol intake [facility] Start: 09-05-2020 End: 09-26-2020 History of Social function [facility] Frequency of Alcohol Consumption Never [facility] Start: 1985 Sex Assigned At Not on file P [facility] Functional Status Date Assessment Result Facility 04-04-2022 Functional Status N/A [facility] 03-18-2022 Functional Status N/A [facility] Clinical Notes 03-18-2022 to 08-18-2023 [facility] 08/18/[facility]23 11:00 AM ESTTelephone Encounter - Tammie Love [facility] - 08/03/2023 11:52 AM ESTTelephone Encounter - Silvia Easton [facility] 08/03/2023 11:52 AM EST Note Date & Type Note Facility 08-18-2023 History of Presen t illness Narrative Images from the original note were not included. [address] [facility] [address] SUBJECTIVE: Patient ID: Sarah oNrwood is a 37 y.o. male. Chief Complaint Patient presents with Manic Behavior States his moods have stabilized. Feels he is doing well with updated medication regimen. Is now being monitored by psychiatry and counseling. Plays [employer] and noticed his playing has improved. Enjoys [...] Medical History: Diagnosis Date Affective bipolar disorder (CMS-HCC) Anxiety Depression Hemorrhoids Shortness of breath Immunization [...] Thought content normal. Judgment: Judgment normal. ASSESSMENT/PLAN: Sarah was seen today for manic behavior. Diagnoses and all orders for this visit: Filiform wart - Ambulatory referral to Dermatology (Non-[facility]); Future Bipolar disorder, current episode manic without psychotic features, severe ([facility]-H[facility]) - ARIPiprazole (ABILIFY) 10 mg tablet; [...] Steele 08/18/23 1128 documented in this encounter [facility] 08-03-2023 Miscellaneous Notes Formattin g of this note might be different from the original. Patient states he needs a letter to give t child support stating he is unable to work so he does not go to residential. Done documented in this encounter [facility] 08-03-2023 Telephone encount er Note Patient states he needs a letter to give t child support stating he is unable to work so he does not go to residential. [facility] 08-03-2023 Telephone encount er Note Done [facility] 05-27-2023 Evaluation note Encounter Date Diagnosis Assessment [...] Pain of left thumb (ICD-10 - M79.645) [employer] Other 08-15-2023 Evaluation note* Encounter Date Diagnosis Assessment Notes Treatment Notes Treatment Clinical Notes Feb, Sprain of metacarpophalangeal joint of left thumb, subsequent encounter (ICD-10 - S63.642D) As patient was unable to utlize the splint we provided, instructed on over the counter lower profile spica splint to allow rest to the joint while it recovers. Continue to avoid strenuous use of the thumb. [employer] Other 07-24-2023 Evaluation note* Encounter Date Diagnosis [...] appropriate use of splinting during healing period. [employer] Other 09-09-2022 Evaluation + Plan note Future Scheduled Tests Laboratory* Semen Analysis Post Vasectomy 04/04/22 * Semen Analysis Post Vasectomy 04/04/22 [facility] Hospital Discharge instructions Patient Education 04/04/2022 [...] 07/13/2006 Document Revised: 07/15/2018 Document Reviewed: 08/15/2017 [employer] Patient Education 2020 Rise. Follow Up Care 02/25/2022 09:09:29 With:HERMES ESPOSITO, Keegan Ryder, URL Address: [address] [place] [address]- When: Unknown [facility] 08-23-2022 Hospital Discharge instructions Patient Education [...] Follow these instructions at home: Medicines Take amho-cpc-lbpkhzy and prescription medicines only as told by [...] 01/30/2006 Document Revised: 06/25/2018 Document Reviewed: 10/09/2017 [employer] Patient Education rankur. Follow Up Care 03/05/2022 11:43:44 With:HERMES ESPOSITO, Keegan Ryder, URL Address: [facility] [address], [facility] [place] [phone] When: Unknown [facility] evaluation + Plan note Future Appointments Appointment Date:04/04/2022 09:45:00 AM Scheduled Provider:Keegan MIRZA MD Location:[facility] Appointment Type:URO Office Visit [facility] evaluvosyx noteNo assessment information available [facility] Work Phone: Evaluakniz note* Diagnosis Filiform wart- Primary Bipolar disorder, current episode manic without psychotic features, severe (CMS-HCC) documented in this encounter [facility] Narrative - Reported* Type Description Date Medical History anxiety Medical History depression Medical History gout Surgical History vasectomy 2021 [employer] Other Hospital course Narrative No data available for this section [facility] Hospital Discharge instructions No data available for this section [facility]Not [facility] filedocumented in this encounter [facility] System[facility]ructions* Attachments The following attachments cannot be sent through Care Everywhere. * Bipolar disorder (Kazakh) * Warts on the Skin (Kazakh) [facility] No data available for this section [facility] Reason for referral (narrative)* Consultation (Routine) - Pending Review Specialty Diagnoses / Procedures Referred By Maliha petersen Referred To Contact Dermatology Diagnoses Filiform wart Silvia Easton, PUBLIC EMPLOYMENT MEDIATOR-TALENT ACQUISITION LEAD [address] [place] [address] Billie Jacbos MD [address], [facility] [address] [place] [address] Referral ID Status Reason Start Date Expiration Date Visits Requested Visits Authorized [id number] Pending Review Specialty Services Required 08/18/2023 08/17/2024 1 1 [facility] [place] [facility] Summary Purpose Family History No Family History [...] and content) DATE CREATED AUTHOR 07/02/2022 [facility] DATE CREATED AUTHOR AUTHOR'S ORGANIZ ATION 05/14/2023 [facility] DATE CREATED AUTHOR AUTHOR'S ORGANIZ ATION 08/21/2023 [facility] DATE CREATED AUTHOR AUTHOR'S ORGANIZ ATION 05/20/2024 [facility] DATE CREATED AUTHOR AUTHOR'S ORGANIZ ATION 05/23/2024 [facility] REASON FOR VISIT (unrecogniz ed section and [...] March 29, 2024 End: March 29, 2024 Liner 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 [facility]. provides no warranty or guarantee of the accuracy or completeness of information in this document.
--- NOTE | 2024-06-01 22:13 | PC.NURSE ---
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 Pt states his girlfriend is being evicted from her home and he was trying to help her but tonight she put the blame on him stating this is his fault Pt states he cannot carry the weight of this and had nowhere else to turn Pt states he has an appointment with his therapist in the morning but he could not wait until then Pt denies any suicidal or homicidal plans Pt speaking quickly and emotionally when explaining his situation to this nurse Pt states him and his psychiatrist are in the process of changing his medications and right now he is here for us to help calm him down because he has no one else to help him get through this
[2024-06-01] MEDS: LORAZEPAM 0.5 MG TABLET 1 MG PO (22:30)
[2024-06-01 22:53] VITALS: BP 135/99; PULSE 97; O2SAT 97
== END 2024-06-01 22:55 | disposition home or self-care (01) ==
PROVIDERS: Emergency Provider Emergency Medicine; PCP Nurse Practitioner
DX: F41.9 Anxiety disorder, unspecified (principal); F17.200 Nicotine dependence, unspecified, uncomplicated
CPT/HCPCS: 99283

== ENCOUNTER 2024-07-31 17:32 | Emergency (ER) | payer BC, SELFPAY ==
[2024-07-31 17:40] VITALS: BP 128/90; PULSE 82; TEMP 37.2; O2SAT 100; BMI 34.9
--- NOTE | 2024-07-31 17:47 | XR_ITS ---
The [address] [address] Patient Name: SARAH REA MRN: [id number] date: 1985 Sex: M Assigned Patient Location: ER Current Patient Location: ED.MAIN Accession/Order Number: [id number] Exam Date: 07/31/2024 18:14 Report Date: 07/31/2024 19:15 At the request of: ENE MARX Procedure: XR lumbar spine 2-3V EXAM: XR lumbar spine 2-3V TECHNIQUE: AP, lateral and lateral lumbosacral views lumbar spine. HISTORY: pain COMPARISON: CT scan 10/29/2023 FINDINGS: No acute fracture or subluxation.] No degenerative changes. Soft tissues are unremarkable. XR/XR lumbar spine 2-3V IMPRESSION: No acute fracture or subluxation. Electronically authenticated by: NAVEED ORANTES Date: 07/31/2024 19:15
[2024-07-31] MEDS: ORPHENADRINE 60 MG/ 2 ML VIAL IM (18:03)
--- NOTE | 2024-07-31 18:03 | ED.BACK1 ---
HPI HPI - Back Pain/Injury General Chief Complaint: Back Pain/Injury Stated Complaint: BACK PAIN Time Seen by Provider: 07/31/24 17:39 Source: patient Mode of arrival: Wheelchair Limitations: no limitations History of Present Illness HPI Narrative: 38-year-old obese male presents here with chief complaint of lower lumbar pain. He states he is having increased pain today he started having sciatic pain and pain rating down the left buttock earlier this week. Today he was trying to lift his child out of the car seat and felt a pulling sensation. He states it immediately made him fall. He denies any loss of bowel or bladder function. Denies any numbness or tingling. He presents here just with increased pain. He is able to ambulate. Related Data Home Medications ?Medication ?Instructions ?Recorded ?Confirmed bupropion HCl 300 mg 24 hr tablet, 300 mg PO DAILY 02/07/23 04/24/24 extended release (Wellbutrin XL) fluoxetine 10 mg capsule (Prozac) 10 mg PO DAILY 02/07/23 04/24/24 hydroxyzine HCl 25 mg tablet 25 mg PO Q8H PRN itching 05/26/23 04/24/24 benztropine 0.5 mg tablet 0.5 mg PO 10/29/23 cariprazine 1.5 mg capsule 1.5 mg PO DAILY 10/29/23 04/24/24 (Vraylar) trazodone 50 mg tablet 150 mg PO .qhs 10/29/23 04/24/24 buspirone 7.5 mg tablet mg 04/24/24 Previous Rx's ?Medication ?Instructions ?Recorded hyoscyamine sulfate 0.125 mg 0.125 mg PO Q6H PRN abdominal pain 10/29/23 tablet (Levsin) #12 tabs ondansetron 4 mg disintegrating 4 mg PO Q6H PRN nausea and 10/29/23 tablet vomiting #12 tabs naproxen sodium 550 mg tablet 550 mg PO BID PRN pain #10 tabs 12/31/23 ibuprofen 800 mg tablet 800 mg PO Q8H PRN pain #30 tabs 07/31/24 methocarbamol 500 mg tablet 500 mg PO TID PRN pain #10 tabs 07/31/24 prednisone 20 mg tablet 20 mg PO DAILY 5 days #5 tabs 07/31/24 Allergies Allergy/AdvReac Type Severity Reaction Status Date / Time No Known Drug Allergies Allergy Verified 07/31/24 17:40 Opioid HPI Opioid Management Most Recent Opioid Data: Last Pain Scale 10 07/31/24 17:49 07/31/24 Last ED Pain Assessment 07/31/24 17:49 Review of Systems ROS Narrative All Systems are negative except as noted/marked.All systems reviewed and otherwise negative PFSH PFSH Social History Smoking status: Current every day smoker Little interest or pleasure in doing things: not at all Feeling down, depressed, or hopeless: not at all Exam Narrative Exam Narrative: Nurses note and vital signs reviewed and patient is not hypoxic. General: The patient appears well and in no apparent distress. Patient is resting comfortably on cart. Skin: Warm, dry, no pallor noted. There is no rash noted. Head: Normocephalic, atraumatic Eye: Normal conjunctiva, no drainage, EOMI. PERRL Ears, Nose, Mouth, and Throat: oral mucosa is moist. Nares patent. Mouth without vesicles. Ear canals patent. Tm's without Erythema Cardiovascular: Regular Rate and Rhythm Respiratory: Patient is in no distress, no accessory muscle use, lungs are clear to auscultation, no wheezing, rales or rhonchi Back: non-tender, no CVA tenderness bilaterally to percussion. GI: Normal bowel sounds, no tenderness to palpation, no masses appreciated. No rebound, guarding, or rigidity noted. Musculoskeletal: no weakness to bilateral lower extremities, the patient has no evidence of calf tenderness, no pitting edema, symmetrical pulses noted bilaterally Neurological: A&O x4, normal speech Psychiatric: Cooperative Constitutional Vital Signs, click to edit/add: Last Vital Signs Temp 99 F 07/31/24 17:40 Pulse 82 07/31/24 17:40 Resp 20 07/31/24 17:40 BP 128/90 07/31/24 17:40 Pulse Ox 100 07/31/24 17:40 O2 Del Method Room Air 07/31/24 17:40 Course Vital Signs Vital signs: Vital Signs Temperature 99 F 07/31/24 17:40 Pulse Rate 82 07/31/24 17:40 Respiratory Rate 20 07/31/24 17:40 Blood Pressure 128/90 07/31/24 17:40 Pulse Oximetry 100 07/31/24 17:40 Oxygen Delivery Method Room Air 07/31/24 17:40 Temperature 99 F 07/31/24 17:40 Pulse Rate 82 07/31/24 17:40 Respiratory Rate 20 07/31/24 17:40 Blood Pressure 128/90 07/31/24 17:40 Pulse Oximetry 100 07/31/24 17:40 Oxygen Delivery Method Room Air 07/31/24 17:40 MDM - Back Pain/Injury MDM Narrative Medical decision making narrative: 38-year-old obese male presents here with chief complaint of lower lumbar pain. He states he is having increased pain today he started having sciatic pain and pain rating down the left buttock earlier this week. Today he was trying to lift his child out of the car seat and felt a pulling sensation. He states it immediately made him fall. He denies any loss of bowel or bladder function. Denies any numbness or tingling. He presents here just with increased pain. He is able to ambulate. Patient presenting here with chief complaint of lower lumbar pain. He was medicated here with Toradol and Norflex. He did help to alleviate his symptoms. Patient feels much better at this time. Patient is comfortable going home. X-ray showed no acute abnormality . Patient feels comfortable going home we discussed rest exercising and following up primary care physician. Of lower lumbar strain. Differential Diagnosis Differential diagnosis: Likely sciatica and strain of lumbar region Medical Records Attestation: I reviewed the patient's medical records. Discharge Plan Discharge Chief Complaint: Back Pain/Injury Clinical Impression: Strain of lumbar region Patient Disposition: Home, Self-Care Time of Disposition Decision: 18:37 Condition: Good Prescriptions / Home Meds: New methocarbamol 500 mg tablet 500 mg PO TID PRN (Reason: pain) Qty: 10 0RF ibuprofen 800 mg tablet 800 mg PO Q8H PRN (Reason: pain) Qty: 30 0RF prednisone 20 mg tablet 20 mg PO DAILY 5 Days Qty: 5 0RF No Action fluoxetine [Prozac] 10 mg capsule 10 mg PO DAILY bupropion HCl [Wellbutrin XL] 300 mg tablet extended release 24 hr 300 mg PO DAILY hydroxyzine HCl 25 mg tablet 25 mg PO Q8H PRN (Reason: itching) trazodone 50 mg tablet 150 mg PO .qhs Vraylar 1.5 mg capsule 1.5 mg PO DAILY benztropine 0.5 mg tablet 0.5 mg PO Patient Comments: started today hyoscyamine sulfate [Levsin] 0.125 mg tablet 0.125 mg PO Q6H PRN (Reason: abdominal pain) Qty: 12 0RF ondansetron 4 mg tablet,disintegrating 4 mg PO Q6H PRN (Reason: nausea and vomiting) Qty: 12 0RF naproxen sodium 550 mg tablet 550 mg PO BID PRN (Reason: pain) Qty: 10 0RF buspirone 7.5 mg tablet Print Language: Lebanese Instructions: Low Back Strain (ED), Lower Back Exercises (ED) Referrals: SILVIA OWENS [Primary Care Provider] - 1 week
[2024-07-31] MEDS: KETOROLAC TROMETHAMINE 60 MG/2 ML VIAL IM (18:04)
== END 2024-07-31 19:17 | disposition home or self-care (01) ==
PROVIDERS: Emergency Provider Emergency Medicine; PCP Nurse Practitioner
DX: S39.012A Strain of muscle, fascia and tendon of lower back, initial encounter (principal); X50.9XXA Other and unspecified overexertion or strenuous movements or postures, initial encounter; F17.200 Nicotine dependence, unspecified, uncomplicated
CPT/HCPCS: 72100; 99284; J1885; J2360

== ENCOUNTER 2024-08-10 19:00 | Emergency (ER) | payer BC, SELFPAY ==
[2024-08-10 19:06] VITALS: BP 133/90; PULSE 81; TEMP 36.8; O2SAT 99; BMI 34.9
--- NOTE | 2024-08-10 19:14 | XR_ITS ---
The [place] [id number] Patient Name: SARAH REA MRN: [id number] date: 1985 Sex: M Assigned Patient Location: ER Current Patient Location: ER Accession/Order Number: [id number] Exam Date: 08/10/2024 19:30 Report Date: 08/10/2024 20:41 At the request of: NICOLÁS CASTELLANO Procedure: XR hip LT 2V w/ pelvis EXAM: XR hip LT 2V w/ pelvis HISTORY: pain, fall COMPARISON: None. TECHNIQUE: 3 views of the left hip FINDINGS: No acute fracture seen. Joint alignment is normal. Joint spaces are preserved. Soft tissues appear unremarkable. XR/XR hip LT 2V w/ pelvis IMPRESSION: No acute fracture. Electronically authenticated by: PREET MOYA Date: 08/10/2024 20:41
--- OUTSIDE RECORDS SUMMARY | 2024-08-10 19:21 | XMS_ITS | CCD ---
Author Organization [facility] Care Team Providers Care [facility] Services Manager Name Role Phone NONE, XXXX Primary Care [...] Unavailable REQUEST, DR SALAMANCA LISTED Primary Care UnavailEMELY Cuenca Attending Unavailable EMELY HONEYCUTT Consulting Unavailable Melody Smith Unavailable BAYLEE Smith Attending Provider NO FAMILY, PHYSICIAN Primary Care Provider Unava ilable Hazel Harden Unavailable Silvia Mckeon Primary Care Provid er SILVIA AESTON Attending Unavailable SILVIA EASTON Referring Unavailable SILVIA EASTON Primary Care Unavailable SILVIA EASTON Attending Unavailable SILVIA EASTON Referring Unavailable SILVIA EASTON Primary Care Unavailable NO FAMILY, PHYSICIAN Primary Care Provider Unava ilable MD Girma Arizmendi Attending Provider [phone] SILVIA EASTON Primary Care Unavailable Girma Arizmendi Attending Unavailab le Girma Arizmendi Admitting Unavailab le NO FAMILY, PHYSICIAN Primary Care Unavailable Allergies Allergy Classification Reported Allergen(s) Allergy Type Date of Onset Reaction(s) Facility (1 source) No Known Medication Allergies; Translations: [No Known Medication Allergies] Propensity to adverse reactions (disorder) [facility] Repository Medications Current Medications Medication Drug Class(es) [...] day(s), # 10 cap(s), Refills(s) 0, Pharmacy: [id number], 177, cm, 03/18/22 13:43:00 EDT, Height/Length Dosing, 135, kg, 03/18/22 13:43:00 EDT, Weight Dosing Start Date: 03/18/22 Stop Date: 03/23/22 Status: Ordered dextromethorphan hydrobromide 15 mg / guaiFENesin 400 mg / pseudoephedrine hydrochloride 60 mg oral tablet (1 source) alpha-Adrenergic Agonist, Uncompetitive U-tcpcvy-V-aspartat e Receptor Antagonist, Sigma-1 Agonist Start: 03-29-2024 [...] noon/midday Start: 07-14-2023 take 1 capsule by [facility] in the morning FLUoxetine (PROzac) 40 mg [...] 08-18-2023 07-14-2023 Other aftercare (1 source) 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; 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] Onset: 04-01-2022 Episodic Other [...] 3V*on 023 XR hand LT min 3V* [facility] K[employer] Other XR hand LT min 3V* [facility] Gourmant Other XR hand LT min 3V* [facility] G[employer] Other XR hand LT min 3V* [facility] [address] [place] [facility] Other XR hand LT min 3V* XRay Report [facility] Other XR hand LT min 3V* Signed [facility] Other XR hand LT min 3V* Patient: Lele Norwood MR#: [id number] [facility] Gourmant Other XR hand LT min 3V* 9 [employer] Other XR hand LT min 3V* : 1985 Acct:[id number] [employer] Other XR hand LT min 3V* Age/Sex: 37 / M ADM Date: 02/16/23 [employer] Other XR hand LT min 3V* Loc: [facility] Room: [facility] [employer] Other XR hand LT min 3V* Attending Dr: Melody BEACH [employer] Other XR hand LT min 3V* Copies to: ES[facility] Gr [employer] Other XR hand LT min 3V* Ordering Provider: ESME Gr [employer] Other XR hand LT min 3V* Date of Service: 02/16/23 [employer] Other XR hand LT min 3V* XR/XR hand LT min 3V*: S69.92XA [employer] Other XR hand LT min 3V* 4 views LEFT hand plain film [employer] Other XR hand LT min 3V* COMPARISON: None [employer] Other XR hand LT min 3V* HISTORY: Hyperextension of the thumb. [employer] Other XR hand LT min 3V* ACUTE FINDINGS: None [employer] Other XR hand LT min 3V* DEGENERATIVE CHANGE: Unremarkable [employer] Other XR hand LT min 3V* SOFT TISSUE FINDINGS : Unremarkable [employer] Other XR hand LT min 3V* JOINT EFFUSION: None [employer] Other XR hand LT min 3V* POSTOP CHANGES: None [employer] Other XR hand LT min 3V* BONY MINERALIZATION: Adequate [employer] Other XR hand LT min 3V* XR/XR hand LT min 3V* [employer] Other XR hand LT min 3V* IMPRESSION: No acute findings [employer] Other XR hand LT min 3V* Impression dictated by: Donta Alvares M.D.02/16/2023 3:57 PM [employer] Other XR hand LT min 3V* Dictation Location: [place] [address] [employer] Other XR hand LT min 3V* Transcribed By: MIGUELINA 02/16/23 1557 [employer] Other XR hand LT min 3V* Dictated By: Donta Alvares DO 02/16/23 1545 [employer] Other XR hand LT min 3V* Signed By: [employer] Other XR hand LT min 3V* 02/16/23 1557 [facility] KIWATCH Other ER URINE PROFILEon 2 Bilirubin Ql (U) Negative Normal NEGATIVE [facility] Comment on above: Performed By: #### E RUR #### [facility] [address] [place] [address] Dr. Sailaja Barillas Clarity (U) CLEAR Normal CLEAR [facility] Comment on above: Performed By: #### E RUR #### [facility] [address] [place] [address] Dr. Sailaja Barillas Color (U) LT. YELLOW Normal YELLOW [facility] Comment on above: Performed By: #### E RUR #### [facility] [address] [place] [address] Dr. Sailaja SWANSON A micrscopic examination will be performed if indicated. Normal [facility] Comment on above: Performed By: #### E RUR #### [facility] [address] [place] [address] Dr. Sailaja Barillas Glucose Ql (U) Negative Normal NEGATIVE [facility] Comment on above: Performed By: #### E RUR #### [facility] [address] [place] [address] Dr. Sailaja Barillas Hemoglobin Ql (U) Negative Normal NEGATIVE [facility] Comment on above: Performed By: #### E RUR #### [facility] [address] [place] [address] Dr. Sailaja Barillas Ketones Ql (U) Negative Normal NEGATIVE [facility] Comment on above: Performed By: #### E RUR #### [facility] [address] [place] [address] Dr. Sailaja Barillas LEUKOCYTES Negative Normal NEGATIVE [facility] Comment on above: Performed By: #### E RUR #### [facility] [address] [place] [address] Dr. Sailaja Barillas Nitrite Ql (U) Negative Normal NEGATIVE [facility] Comment on above: Performed By: #### E RUR #### [facility] [address] [place] [address] Dr. Sailaja Barillas pH (U) 7.0 [pH] Normal 5-9 [facility] Comment on above: Performed By: #### E RUR #### [facility] [address] [place] [address] Dr. Sailaja Barillas SPEC GRAVITY 1.015 Normal 1.005-<=1.025 [facility] Comment on above: Performed By: #### E RUR #### [facility] [address] [place] [address] Dr. Sailaja Barillas UA PROTEIN Negative Normal NEGATIVE/ TRACE [facility] Comment on above: Performed By: #### E RUR #### [facility] [address] [place] [address] Dr. Sailaja Barillas UR MICRO IND NOT INDICATED Normal [facility] Comment on above: Performed By: #### E RUR #### [facility] [address] [place] [address] Dr. Saliaja Barillas Urobilinogen Qn (U) 0.2 {Gael'U}/dL Normal 0.2 - 1.0 [facility] Comment on above: Performed By: #### E RUR #### [facility] [address] [place] [address] Dr. Sailaja Barillas CBC AUTO DIFFon 03-20-2022 BASO # 0.1 103/ul Normal 0.0-0.1 [facility] Comment on above: Performed By: #### C BC #### [facility] [address] [place] [address] Dr. Sailaja Barillas Basophils/100 WBC (Bld) 0.7 % Normal 0.2-2.0 [facility] Comment on above: Performed By: #### C BC #### [facility] [address] [place] [address] Dr. Sailaja Barillas EO # 0.1 103/ul Normal 0.0-0.7 [facility] Comment on above: Performed By: #### C BC #### [facility] [address] [place] [address] Dr. Sailaja Barillas Eosinophils/100 WBC (Bld) 0.9 % Normal 0.9-7.0 [facility] Comment on above: Performed By: #### C BC #### [facility] [address] [place] [address] Dr. Sailaja Barillas Erythrocyte distribution width (RBC) [Ratio] 12.9 % Normal 11.0-15.0 [facility] Comment on above: Performed By: #### C BC #### [facility] [address] [place] [address] Dr. Sailaja Barillas Hematocrit (Bld) [Volume fraction] 39.4 % Critically low 42.0-54.0 [facility] Comment on above: Performed By: #### C BC #### [facility] [address] [place] [address] Dr. Sailaja Barillas Hemoglobin (Bld) [Mass/Vol] 13.5 g/dL Critically low 14.0-18.0 [facility] Comment on above: Performed By: #### C BC #### [facility] [address] [place] [address] Dr. Sailaja Barillas IG # 0.03 10e3/ul Normal 0.00-0.03 [facility] Comment on above: Performed By: #### C BC #### [facility] [address] [place] [address] Dr. Sailaja Barillas IG % 0.3 % Normal 0.0-0.5 [facility] Comment on above: Performed By: #### C BC #### [facility] [address] [place] [address] Dr. Sailaja Barillas LYMPH # 2.6 103/ul Normal 1.2-3.8 [facility] Comment on above: Performed By: #### C BC #### [facility] [address] [place] [address] Dr. Sailaja Barillas Lymphocytes/100 WBC (Bld) 29.4 % Normal 20.5-60.0 [facility] Comment on above: Performed By: #### C BC #### [facility] [address] [place] [address] Dr. Sailaja Barillas MANUAL DIFF REQ NO Normal [facility] Comment on above: Performed By: #### C BC #### [facility] [address] [place] [address] Dr. Sailaja Barillas MCH (RBC) [Entitic mass] 30.4 pg Normal 25.9-34.0 [facility] Comment on above: Performed By: #### C BC #### [facility] [address] [place] [address] Dr. Sailaja Barillas MCHC (RBC) [Mass/Vol] 34.3 g/dL Normal 29.9-35.2 [facility] Comment on above: Performed By: #### C BC #### [facility] [address] [place] [address] Dr. Sailaja Barillas MCV (RBC) [Entitic vol] 88.7 fL Normal 80.0-94.0 [facility] Comment on above: Performed By: #### C BC #### [facility] [address] [place] [address] Dr. Sailaja Barillas MONO # 0.7 103/ul Normal 0.3-0.8 [facility] Comment on above: Performed By: #### C BC #### [facility] [address] [place] [address] Dr. Sailaja Barillas Monocytes/100 WBC (Bld) 8.4 % Normal 1.7-12.0 [facility] Comment on above: Performed By: #### C BC #### [facility] [address] [place] [address] Dr. Sailaja Barillas NEUT # 5.3 103/ul Normal 1.4-6.5 [facility] Comment on above: Performed By: #### C BC #### [facility] [address] [place] [address] Dr. Sailaja Barillas Neutrophils/100 WBC (Bld) 60.3 % Normal 43.0-75.0 [facility] Comment on above: Performed By: #### C BC #### [facility] [address] [place] [address] Dr. Sailaja Barillas Platelet mean volume (Bld) [Entitic vol] 9.6 fL Normal 9.5-13.5 [facility] Comment on above: Performed By: #### C BC #### [facility] [address] [place] [address] Dr. Sailaja Barillas PLT 242 103/ul Normal 150-450 [facility] Comment on above: Performed By: #### C BC #### [facility] [address] [place] [address] Dr. Sailaja Barillas RBC 4.44 106/ul Critically low 4.70-6.10 [facility] Comment on above: Performed By: #### C BC #### [facility] [address] [place] [address] Dr. Sailaja Barillas WBC 8.8 103/ul Normal 4.0-11.0 [facility] Comment on above: Performed By: #### C BC #### [facility] [address] [place] [address] Dr. Sailaja Barillas ER URINE PROFILEon 2 Bilirubin Ql (U) Negative Normal NEGATIVE [facility] Comment on above: Performed By: #### E RUR #### [facility] [address] [place] [address] Dr. Sailaja Barillas Clarity (U) CLEAR Normal CLEAR [facility] Comment on above: Performed By: #### E RUR #### [facility] [address] [place] [address] Dr. Sailaja Barillas Color (U) YELLOW Normal YELLOW [facility] Comment on above: Performed By: #### E RUR #### [facility] [address] [place] [address] Dr. Sailaja Barillas ERUAHD A micrscopic examination will be performed if indicated. Normal [facility] Comment on above: Performed By: #### E RUR #### [facility] [address] [place] [address] Dr. Sailaja Barillas Glucose Ql (U) Negative Normal NEGATIVE [facility] Comment on above: Performed By: #### E RUR #### [facility] [address] [place] [address] Dr. Sailaja Barillas Hemoglobin Ql (U) Negative Normal NEGATIVE [facility] Comment on above: Performed By: #### E RUR #### [facility] [address] [place] [address] Dr. Sailaja Barillas Ketones Ql (U) Negative Normal NEGATIVE [facility] Comment on above: Performed By: #### E RUR #### [facility] [address] [place] [address] Dr. Sailaja Barillas LEUKOCYTES Negative Normal NEGATIVE [facility] Comment on above: Performed By: #### E RUR #### [facility] [address] [place] [address] Dr. Sailaja Barillas Nitrite Ql (U) Negative Normal NEGATIVE [facility] Comment on above: Performed By: #### E RUR #### [facility] [address] [place] [address] Dr. Sailaja Barillas pH (U) 5.5 [pH] Normal 5-9 [facility] Comment on above: Performed By: #### E RUR #### [facility] [address] [place] [address] Dr. Sailaja Barillas SPEC GRAVITY 1.025 Normal 1.005-<=1.025 [facility] Comment on above: Performed By: #### E RUR #### [facility] [address] [place] [address] Dr. Sailaja Barillas UA PROTEIN Negative Normal NEGATIVE/ TRACE [facility] Comment on above: Performed By: #### E RUR #### [facility] [address] [place] [address] Dr. Sailaja Barillas UR MICRO IND NOT INDICATED Normal [facility] Comment on above: Performed By: #### E RUR #### [facility] [address] [place] [address] Dr. Sailaja Barillas Urobilinogen Qn (U) 0.2 {Gael'U}/dL Normal 0.2 - 1.0 [facility] Comment on above: Performed By: #### E RUR #### [facility] [address] [place] [address] [address] Sailaja Barillas PROF CHEM 8 (BAS METB)on Anion gap [Moles/Vol] 11.1 mmol/L Normal [facility] Comment on above: Performed By: #### B MP #### [facility] [address] [place] [address] Dr. Sailaja Barillas Calcium [Mass/Vol] 8.5 mg/dL Normal 8.5-10.[address] [facility] Comment on above: Performed By: #### B MP #### [facility] [address] [place] [address] Dr. Sailaja Barillas Chloride [Moles/Vol] 106 mmol/L Normal 98-107 [facility] Comment on above: Performed By: #### B MP #### [facility] [address] [place] [address] Dr. Sailaja Barillas CO2 [Moles/Vol] 26.8 mmol/L Normal 21.0-32.0 [facility] Comment on above: Performed By: #### B MP #### [facility] [address] [place] [address] Dr. Sailaja Barillas Creatinine [Mass/Vol] 0.97 mg/dL Normal 0.70-1.30 [facility] Comment on above: Performed By: #### B MP #### [facility] [address] [place] [address] Dr. Sailaja Barillas EGFR-AF ANDORRAN >60 Normal >=60 [facility] Comment on above: Performed By: #### B MP #### [facility] [address] [place] [address] Dr. Sailaja Barillas EGFR-NON AF ANDORRAN >60 Normal >=60 [facility] Comment on above: Performed By: #### B MP #### [facility] [address] [place] [address] Dr. Sailaja Barillas Glucose [Mass/Vol] 102 mg/dL Normal 74-[address] [facility] Comment on above: Performed By: #### B MP #### [facility] [address] [place] [address] Dr. Sailaja Barillas Potassium [Moles/Vol] 3.9 mmol/L Normal 3.5-5.1 [facility] Comment on above: Performed By: #### B MP #### [facility] [address] [place] [address] [address] Sailaja Barillas Sodium [Moles/Vol] 140 mmol/L Normal 136-145 [facility] Comment on above: Performed By: #### B MP #### [facility] [address] [place] [address] [address] Sailaja Barillas Urea nitrogen [Mass/Vol] 10.0 mg/dL Normal 7.0-18.0 [facility] Comment on above: Performed By: #### B MP #### [facility] [address] [place] [address] [address] Sailaja Barillas Urea nitrogen/Creatinin e [Mass ratio] 10.3 mg/mg Normal [facility] Comment on above: Performed By: #### B MP #### [facility] [address] [place] [address] [address] Sailaja Barillas US SCROTUM W VASCULAR ORGANo n 03-20-2022 US SCROTUM W VASCULAR ORGAN EXAM: US SCROTUM W VASCULAR ORGAN HISTORY: Postoperative pain COMPARISON: None. TECHNIQUE: Alan scale imaging as well as color and duplex Doppler ultrasound examination of the scrotum and its contents were performed. FINDINGS: The testes are normal in size and echotexture without focal abnormality. The right testicle per epoxy fabrication supervisor although appears slightly more proximal within the [...] by: LILA JEFFREY Date: 2022-03-20 18:55 Normal [facility] XR KNEE RT 4V or >on 022 [...] by: SANIYA MATOS Date: 2022-03-01 13:40 Normal [facility] Vital Signs Date Time Vital Sign Value Performing Clinician Facility 03-29-2024 09:08-0400 Body height 177.8 cm PHYSICIAN NO [facility] 03-29-2024 09:08-0400 Body mass index (BMI) [Ratio] 36.3 kg/m2 PHYSICIAN NO [facility] 03-29-2024 09:08-0400 Body temperature 97.7 [degF] PHYSICIAN NO [facility] 03-29-2024 09:08-0400 Body weight 114.98 kg PHYSICIAN NO [facility] 03-29-2024 09:08-0400 Diastolic blood pressure 82 mm[Hg] PHYSICIAN NO [facility] 03-29-2024 09:08-0400 Heart rate 79 /min PHYSICIAN NO [facility] 03-29-2024 09:08-0400 Respiratory rate 18 /min PHYSICIAN NO [facility] 03-29-2024 09:08-0400 SaO2% (BldA) [Mass fraction] 98 % PHYSICIAN NO [facility] 03-29-2024 09:08-0400 Systolic blood pressure 119 mm[Hg] PHYSICIAN NO [facility] 08-18-2023 10:56-0500 Body height 177.8 cm Silvia SEGOVIA Work Phone: [facility] 08-18-2023 10:56-0500 Body mass index (BMI) [Ratio] 38.48 kg/m2 Silvia SEGOVIA Work Phone: [facility] 08-18-2023 10:56-0500 Body temperature 97.81 [degF] Silvia Easton PROJECT CONTROLS SPECIALIST-CAR RENTAL CLERK Work Phone: [facility] 08-18-2023 10:56-0500 Body weight 121.66 kg Silvia Easton PROJECT CONTROLS SPECIALIST-CAR RENTAL CLERK Work Phone: [facility] 08-18-2023 10:56-0500 Diastolic blood pressure 78 mm[Hg] Silvia Easton PROJECT CONTROLS SPECIALIST-CAR RENTAL CLERK Work Phone: [facility] 08-18-2023 10:56-0500 Heart rate 83 /min Silvia Easton APRN-CAR RENTAL CLERK Work Phone: [facility] 08-18-2023 10:56-0500 SaO2% (BldA) [Mass fraction] 93 % Silvia Easton APRN-CAR RENTAL CLERK Work Phone: [facility] 08-18-2023 10:56-0500 Systolic blood pressure 120 mm[Hg] Silvia Easton PROJECT CONTROLS SPECIALIST-CAR RENTAL CLERK Work Phone: [facility] 02-16-2023 15:15-0400 Body height 177.8 cm Melody Smith Other [facility] Other 02-16-2023 15:15-0400 Body mass index (BMI) [Ratio] 34.15 kg/m2 Melody Smith Other [facility] Other 02-16-2023 15:15-0400 Body weight 107.96 kg Melody Smith Other [facility] Other 04-04-2022 10:10-0400 Respiratory rate 16 /min Keegan MIRZA [facility] 03-18-2022 13:34-0400 Blood Pressure Location Keegan MIRZA [facility] 03-18-2022 13:34-0400 Diastolic blood pressure 99 mm[Hg] Keegan MIRZA [facility] 03-18-2022 13:34-0400 Heart rate 83 /min Keegan MIRZA [facility] 03-18-2022 13:34-0400 Systolic blood pressure 158 mm[Hg] Keegan MIRZA [facility] Encounters Encounter Date Encounter Type Care Provider Facility Start: 06-03-2024 ambulatory Girma Cardoso acility:[facility] Start: 05-22-2024 End: 05-22-2024 Emergency department patient visit [facility] Malik [facility] Start: 03-29-2024 End: 03-29-2024 ambulatory PHYSICIAN NO [facility] Work Phone: Start: 03-29-2024 End: 03-29-2024 Patient encounter procedure PHYSICIAN NO [facility] Physician [facility] Work Phone: Start: 02-18-2024 Registered Recurring PHYSICIAN NO [facility] Start: 12-31-2023 Non-patient / Non-visit PHYSICIAN NO [facility] Physician [facility] Work Phone: Start: 08-18-2023 End: 08-18-2023 ambulatory [facility] Start: 08-18-2023 End: 08-18-2023 Office outpatient visit 15 minutes Silvia Easton PROJECT CONTROLS SPECIALIST-CAR RENTAL CLERK Work Phone: [facility] Comment on above: Filiform wart (Prima ry Dx); Bipolar disorder, current episode manic without psychotic features, severe ([facility]) Start: 08-03-2023 Telephone encounter Tammie Kennedy MA [facility] Start: 07-14-2023 End: 07-14-2023 ambulatory SILVIA Malik [facility] Start: 05-27-2023 End: 05-27-2023 ambulatory Hazel Harden Other [employer] Other Start: 05-27-2023 Office outpatient ne w 45 minutes Hazel Harden [facility] Start: 05-14-2023 End: 05-14-2023 ambulatory PHYSICIAN NO [facility] Work Phone: Start: 05-14-2023 End: 05-14-2023 Patient encounter procedure PHYSICIAN NO [facility]MRI [address] Work Phone: Start: 03-10-2023 End: 03-10-2023 ambulatory Melody Smith Other [facility] Other Start: 03-10-2023 Office outpatient visit 15 minutes Melody Smith [facility] Start: 02-16-2023 End: 02-16-2023 Patient encounter procedure PHYSICIAN NO [facility] Start: 02-16-2023 End: 02-16-2023 ambulatory Melody Smith Other [facility] Other Start: 02-16-2023 Office outpatient ne w 30 minutes Melody Smith [facility] Start: 04-08-2022 ambulatory Facility:[facility] Start: 04-04-2022 End: 04-04-2022 Patient encounter procedure Keegan MIRZA [facility] Start: 03-31-2022 End: 03-31-2022 ambulatory EMELY HONEYCUTT Facility:[facility] Start: 03-20-2022 End: 03-20-2022 ambulatory NONE LISTED REQUEST Facility:[facility] Start: 03-18-2022 End: 03-18-2022 Lab Drop off Keegan MIRZA [facility] Start: 03-18-2022 End: 03-18-2022 Patient encounter procedure Keegan MIRZA [facility] Start: 03-01-2022 End: 03-01-2022 ambulatory NONE LISTED REQUEST Facility: Procedures Date Procedure Procedure Detail Performing Clinician Start: 08-18-2023 Adult depression screening assessment Silvia SEGOVIA Work Phone: Start: 07-14-2023 Adult depression screening assessment Tammie Love [facility] Start: 02-16-2023 Plain X-ray of left hand PHYSICIAN NO FAMILY Start: 04-04-2022 H/O: vasectomy Keegan MIRZA Start: 03-18-2022 Vasectomy Keegan ZUNIGA Plan of Treatment Date Care Activity Detail Author Start: 05-12-2028 DTaP,Tdap and Td Vaccines (8 - Td or Tdap) DTaP,Tdap and Td Vaccines (8 - Td or Tdap) [facility] Start: 08-18-2024 Adult BMI Screening Adult BMI Screen ing [facility] Start: 08-18-2024 Depression Screening Depression Scre [facility] Start: 08-18-2024 Tobacco Screening Tobacco Screening [facility] Start: 07-14-2024 Adult BMI Follow Up Plan Adult BMI Follow Up Plan [facility] Start: 07-14-2024 Depression Screening Depression Scre ening [facility] Start: 07-14-2024 Tobacco Screening Tobacco Screening [facility] Start: 06-09-2024 Adult BMI Screening Adult BMI Screen ing [facility] Start: 08-18-2023 End: 08-18-2023 Patient encounter procedure 08/18/2023 11:00 AM EST [facility] [address] [place] [id number] Silvia Easton, PROJECT CONTROLS SPECIALIST-CAR RENTAL CLERK [address] [place] [address] [facility] Start: 05-14-2023 MRI of left hand MR hand LT wo con F [facility] Start: 03-27-2023 COVID-19 Vaccine ( season) COVID-19 Vaccine ( season) [facility] Start: 03-27-2023 Influenza vaccination Influenza Vacc ine [facility] Immunizations Immunization Date Immunization Notes Care Provider Fa cility 02-28-2021 COVID-19 Vaccine, vector-nr, rS-Ad26, PF, 0.5mL Tammie Love [facility] 02-24-2021 SARS-CoV-2 (COVID-19 ) Ad26 vaccine, recombinant Keegan MIRZA [facility] 06-14-2020 Influenza, injectabl e, Madin [place] Canine Kidney, preservative free, quadrivalent Tammie Love [facility] 06-14-2020 pneumococcal polysaccharide vaccine, 23 valent Tammie Love [facility] 06-14-2020 influenza virus vaccine, unspecified formulation Tammie Love [facility] 05-12-2018 influenza, injectabl e, quadrivalent, preservative free Tammie Love [facility] 05-12-2018 tetanus toxoid, redu mey diphtheria toxoid, and acellular pertussis vaccine, adsorbed Tammie Love [facility] 01-05-2002 hepatitis B vaccine, pediatric or pediatric/adolescent dosage [facility] 04-23-2000 hepatitis B vaccine, pediatric or pediatric/adolescent dosage [facility] 02-20-2000 hepatitis B vaccine, pediatric or pediatric/adolescent dosage [facility] 02-20-2000 tetanus and diphther ia toxoids, adsorbed, preservative free, for adult use (2 Lf of tetanus toxoid and 2 Lf of diphtheria toxoid) [facility] 01-21-2000 hepatitis B vaccine, pediatric or pediatric/adolescent dosage [facility] 05-17-1993 measles, mumps and rubella virus vaccine [facility] 09-15-1990 diphtheria, tetanus toxoids and pertussis vaccine [facility] 09-15-1990 haemophilus influenz ae type b vaccine, conjugate unspecified formulation [facility] 09-15-1990 trivalent poliovirus vaccine, live, oral [facility] 01-31-1987 diphtheria, tetanus toxoids and pertussis vaccine [facility] 01-31-1987 measles, mumps and rubella virus vaccine [facility] 01-31-1987 trivalent poliovirus vaccine, live, oral [facility] 05-17-1986 diphtheria, tetanus toxoids and pertussis vaccine [facility] 03-15-1986 diphtheria, tetanus toxoids and pertussis vaccine [facility] 03-15-1986 trivalent poliovirus vaccine, live, oral [facility] 01-11-1986 diphtheria, tetanus toxoids and pertussis vaccine [facility] 01-11-1986 trivalent poliovirus vaccine, live, oral [facility] NEGATED: Highlighted row has not occurred!02-10-2022 SARS-CoV-2 mRNA (tozinameran 5y-11y) vaccine Keegan MIRZA [facility] Payers Date Payer Category Payer Unknown [id number] 2023 Self-pay 2022 [employer] Blue [employer] [id number] 2022 Unknown ZAN MAURICIO SS (PPO) [id number] 2022-Present [phone] [address] [place] [address] [id number] 1985 Unknown [id number] 93 1985 Unknown [id number] 93 1985 Unknown [id number] 93 1985 Unknown [id number] 286 1985 Unknown [id number] 286 1985 Unknown [id number] 286 1959 Unknown [id number] 1959 Unknown [id number] 1959 Unknown [id number] Unknown [id number] 31 Social History Date Type Detail Facility Start: 03-18-2022 Tobacco smoking status Light t obacco smoker (finding) [facility] Tobacco smoking status Smoker (finding) [facility] Start: 09-05-2020 End: 09-26-2020 Sex Assigned At Male [facility] Start: 04-04-2022 End: 05-07-2023 Tobacco smoking status Ex-smoker (finding) [facility] Start: 1985 Sex Assigned At Male F [facility] History of tobacco use Cigarette Smoker P [facility] Start: 05-07-2023 Tobacco use and exposure Smoke less tobacco non-user [facility] Start: 07-14-2023 End: 08-18-2023 [facility] intake [facility] Start: 09-05-2020 End: 09-26-2020 History of Social function [facility] Frequency of Alcohol Consumption Never [facility] Start: 1985 Sex Assigned At Not on file P [facility] Functional Status Date Assessment Result Facility 04-04-2022 Functional Status N/A [facility] 03-18-2022 Functional Status N/A [facility] Clinical Notes 03-18-2022 to 08-18-2023 [facility] - 08/18/2023 11:00 AM ESTTelephone Encounter - Tammie Love [facility] - 08/03/2023 11:52 AM ESTTelephone Encounter - [facility] - 08/03/2023 11:52 AM EST Note Date & Type Note Facility 08-18-2023 History of Presen t illness Narrative Images from the original note were not included. [address] [facility] [address] SUBJECTIVE: Patient ID: Lele Norwood is a 37 y.o. male. Chief Complaint Patient presents with Manic Behavior States his moods have stabilized. Feels he is doing well with updated medication regimen. Is now being monitored by psychiatry and counseling. Plays [employer] and noticed his playing has improved. Enjoys [...] Medical History: Diagnosis Date Affective bipolar disorder ([facility]) Anxiety Depression Hemorrhoids Shortness of breath Immunization [...] current episode manic without psychotic features, severe ([facility]) - ARIPiprazole (ABILIFY) 10 mg tablet; [...] Steele 08/18/23 1128 documented in this encounter [facility] 08-03-2023 Miscellaneous Notes Formattin g of this note might be different from the original. Patient states he needs a letter to give t child support stating he is unable to work so he does not go to [facility]. Done documented in this encounter [facility] 08-03-2023 Telephone encount er Note Patient states he needs a letter to give t child support stating he is unable to work so he does not go to [facility]. [facility] 08-03-2023 Telephone encount er Note Done [facility] 05-27-2023 Evaluation note Encounter Date Diagnosis [...] Pain of left thumb (ICD-10 - M79.645) [facility] Other 08-15-2023 Evaluation note* Encounter Date Diagnosis Assessment Notes Treatment Notes Treatment Clinical Notes Feb, Sprain of metacarpophalangeal joint of left thumb, subsequent encounter (ICD-10 - S63.642D) As patient was unable to utlize the splint we provided, instructed on over the counter lower profile spica splint to allow rest to the joint while it recovers. Continue to avoid strenuous use of the thumb. [facility] Other 07-24-2023 Evaluation note* Encounter Date Diagnosis [...] appropriate use of splinting during healing period. [facility] Other 09-09-2022 Evaluation + Plan note Future Scheduled Tests Laboratory* Semen Analysis Post Vasectomy 04/04/22 * Semen Analysis Post Vasectomy 04/04/22 [facility] Hospital Discharge instructions Patient Education 04/04/2022 [...] 07/13/2006 Document Revised: 07/15/2018 Document Reviewed: 08/15/2017 [employer] Patient Education 2020 [employer]. Follow Up Care 02/25/2022 09:09:29 With:HERMES ESPOSITO, Keegan Ryder, URL Address: [address] [place] [address]- When: Unknown [facility] 08-23-2022 Hospital Discharge instructions Patient Education [...] Follow these instructions at home: Medicines Take unxn-fnx-amtgykd and prescription medicines only as told by [...] 01/30/2006 Document Revised: 06/25/2018 Document Reviewed: 10/09/2017 [employer] Patient Education 2020 [employer]. Follow Up Care 03/05/2022 11:43:44 With:HERMES ESPOSITO, Keegan Ryder, URL Address: [facility] [address], [facility] [address]- [phone] When: Unknown [facility] evaluation + Plan note Future Appointments Appointment Date:04/04/2022 09:45:00 AM Scheduled Provider:Keegan MIRZA MD Location:[facility] Appointment Type:URO Office Visit [facility] evaluavwye noteNo assessment information available [facility] Work Phone: Evaluwqjtw note* Diagnosis Filiform wart- Primary Bipolar disorder, current episode manic without psychotic features, severe (CMS-HCC) documented in this encounter [facility] Narrative - Reported* Type Description Date Medical History anxiety Medical History depression Medical History gout Surgical History vasectomy 2021 [facility] Other Hospital course Narrative No data available for this section [facility] Discharge instructions No data available for this section [facility] filedocumented in this encounter [facility]* Attachments The following attachments cannot be sent through Care Everywhere. * Bipolar disorder (Romanian) * Warts on the Skin (Romanian) [facility] No data available for this section [facility] Reason for referral (narrative)* Consultation (Routine) - Pending Review Specialty Diagnoses / Procedures Referred By Maliha petersen Referred To Contact Dermatology Diagnoses Filiform wart Silvia Easton, PROJECT CONTROLS SPECIALIST-CAR RENTAL CLERK [address] [place] [address] Billie Jacobs MD [address], [facility] [address] [place] [address] Referral ID Status Reason Start Date Expiration Date Visits Requested Visits Authorized [id number] Pending Review Specialty Services Required 08/18/2023 08/17/2024 1 1 LD [facility] Summary Purpose Family History No Family History [...] content) DATE CREATED AUTHOR 07/02/2022 [facility] DATE CREATED AUTHOR AUTHOR'S ORGANIZ ATION 05/14/2023 [facility] DATE CREATED AUTHOR AUTHOR'S ORGANIZ ATION 08/21/2023 [facility] DATE CREATED AUTHOR AUTHOR'S ORGANIZ ATION 05/23/2024 [facility] DATE CREATED AUTHOR AUTHOR'S ORGANIZ ATION 06/04/2024 [facility] REASON FOR VISIT (unrecogniz ed [...] March 29, 2024 End: March 29, 2024 [employer] Manager Relationship Specialty Start Date End Date Silvia Easton, PROJECT CONTROLS SPECIALIST-CAR RENTAL CLERK [address] [place] [address] PCP - General Family Medicine 05/07/23 Team Status: Active Member Role Status Dates PHYSICIAN NO FAMILY Primary Care Provider Active Team Status: Inactive Member Role Status Dates BAYLEE Gr Attending Provider Active Team Status: Inactive Member Role Status BAYLEE Middleton Attending Provider Active PHYSICIAN NO FAMILY Primary [...] BE BASED ON THE PRIMARY CLINICAL RECORDS. [facility]. [facility]. provides no warranty or guarantee of the accuracy or completeness of information in this document.
--- NOTE | 2024-08-10 19:28 | ED.GENADUL1 ---
HPI HPI - General Adult General Chief complaint: Extremity Injury, Lower Stated complaint: LOWER EXTREMITY PAIN Time Seen by Provider: 08/10/24 19:07 Source: patient Mode of arrival: walk-in Limitations: no limitations History of Present Illness HPI narrative: 38-year-old male to the emergency department with chief complaint of accidental fall. Patient reports that he was walking down the stairs and fell onto his left leg. He reports some pain in his left hip. He is able to ambulate. He has had some ongoing pain in his back for the last few weeks. He believes this caused his fall. Denies any bowel bladder incontinence or retention. Related Data Home Medications ?Medication ?Instructions ?Recorded ?Confirmed bupropion HCl 300 mg 24 hr tablet, 300 mg PO DAILY 02/07/23 04/24/24 extended release (Wellbutrin XL) fluoxetine 10 mg capsule (Prozac) 10 mg PO DAILY 02/07/23 04/24/24 benztropine 0.5 mg tablet 0.5 mg PO 10/29/23 cariprazine 1.5 mg capsule 1.5 mg PO DAILY 10/29/23 04/24/24 (Vraylar) trazodone 50 mg tablet 150 mg PO .qhs 10/29/23 04/24/24 buspirone 7.5 mg tablet mg 04/24/24 Allergies Allergy/AdvReac Type Severity Reaction Status Date / Time No Known Drug Allergies Allergy Verified 08/10/24 19:06 Opioid HPI Opioid Management Most Recent Opioid Data: Last Pain Scale 10 07/31/24 17:49 07/31/24 Review of Systems ROS Status of ROS 10 or more systems reviewed and unremarkable except as noted in history and below PFSH [facility] Social History Smoking status: Current every day smoker Little interest or pleasure in doing things: not at all Feeling down, depressed, or hopeless: not at all Exam Narrative Exam Narrative: VITALS: I have reviewed the triage vital signs. GENERAL: Well developed, well appearing adult in no acute distress. NEURO: Alert and oriented. Moves all extremities. Face is symmetric and expressive. Patellar reflexes brisk and equal bilaterally. Normal gait. Plantar flexion/dorsiflexion, knee flexion/extension, hip flexion/extension are grossly intact with 5/5 strength. Sensation is intact across the bilateral lower extremities. SPINE: No midline cervical, thoracic, or lumbar tenderness. No step-off or deformities. No paraspinal muscle tenderness or increased tone. EYES: PERRL. No scleral icterus or conjunctival injection. No discharge. HENT: Normocephalic, atraumatic. Hearing is grossly intact. Nares grossly patent and without discharge. Mucous membranes moist. NECK: No JVD. Patient moves neck without restriction. CARDIO: Rhythm regular. Normal rate. No murmur, rub, or gallop. Pulses equal bilaterally in the upper and lower extremity. No lower extremity edema. PULM: Lungs clear to auscultation in all wang. No wheezes, rales, or rhonchi. No conversational dyspnea. No splinting, stridor, or accessory muscle use. GI/: Abdomen is soft and non-tender. Normoactive bowel sounds. No flank tenderness. EXTREMITIES: Tenderness to left greater trochanter. Muscle bulk. No joint swelling. No clubbing, cyanosis, or deformity. SKIN: Warm and dry. Normal turgor. No rash or lesions appreciated. PSYCH: Mood, affect, and interaction is appropriate to the setting. Constitutional Vital Signs, click to edit/add: Last Vital Signs Temp 98.2 F 08/10/24 19:06 Pulse 81 08/10/24 19:06 Resp 16 08/10/24 19:06 BP 133/90 08/10/24 19:06 Pulse Ox 99 08/10/24 19:06 O2 Del Method Room Air 08/10/24 19:06 Course Vital Signs Vital signs: Vital Signs Temperature 98.2 F 08/10/24 19:06 Pulse Rate 81 08/10/24 19:06 Respiratory Rate 16 08/10/24 19:06 Blood Pressure 133/90 08/10/24 19:06 Pulse Oximetry 99 08/10/24 19:06 Oxygen Delivery Method Room Air 08/10/24 19:06 Temperature 98.2 F 08/10/24 19:06 Pulse Rate 81 08/10/24 19:06 Respiratory Rate 16 08/10/24 19:06 Blood Pressure 133/90 08/10/24 19:06 Pulse Oximetry 99 08/10/24 19:06 Oxygen Delivery Method Room Air 08/10/24 19:06 Medical Decision Making MDM Narrative Medical decision making narrative: 38-year-old male to the emergency department chief complaint of accidental fall to under his left hip. Vital stable, the patient is afebrile. He is neurovascularly intact. An x-ray is ordered. Patient agrees with this plan. No evidence of cord compressing lesion. X-ray without acute findings. Kenalog for his continued sciatica. Follow-up with PCP. Work note given. Return precautions were discussed. All questions were answered. The patient was discharged home. Medical Records Medical records reviewed: Yes I reviewed the patient's medical records Imaging Data Hip x-ray: Radiologist's impression: ITS Impressions Hip/Pelvis X-Ray 08/10/24 19:14 IMPRESSION: No acute fracture. Electronically authenticated by: PREET MOYA Date: 08/10/2024 20:41 Discharge Plan Discharge Chief Complaint: Extremity Injury, Lower Clinical Impression: Sciatica, Accidental fall Patient Disposition: Home, Self-Care Time of Disposition Decision: 20:50 Condition: Good Mode of Transportation: Private Vehicle Prescriptions / Home Meds: No Action fluoxetine [Prozac] 10 mg capsule 10 mg PO DAILY bupropion HCl [Wellbutrin XL] 300 mg tablet extended release 24 hr 300 mg PO DAILY trazodone 50 mg tablet 150 mg PO .qhs Vraylar 1.5 mg capsule 1.5 mg PO DAILY benztropine 0.5 mg tablet 0.5 mg PO Patient Comments: started today buspirone 7.5 mg tablet Print Language: Faroese Instructions: Acute Low Back Pain (ED), Fall Prevention (ED) Additional Instructions: Call the office of your primary care doctor to arrange for follow-up within the above-stated timeframe. Your ED visit was focused on your acute issue and does not replace primary care. You should review your labs, imaging, and diagnoses from this ED visit with your primary care physician. There may be non-emergent/ incidental findings that need further evaluation. You should review your vital signs including blood pressure with your PCP. If you were prescribed medications you should discuss possible side-effects and drug interactions with your pharmacist. Call 911 or go to the nearest Emergency Department if you develop any new or worsening symptoms. Seek immediate medical attention if you develop: increasing pain, numbness, tingling, weakness, loss of motion in your arms or legs, loss of control of your urine or stool, fever, abdominal pain, chest pain, shortness of breath, or any new or worsening symptoms. Referrals: SILVIA OWENS [Primary Care Provider] - 1 week
[2024-08-10] MEDS: TRIAMCINOLONE ACETONIDE 40 MG/ML VIAL IM (21:02)
== END 2024-08-10 21:08 | disposition home or self-care (01) ==
PROVIDERS: Emergency Provider Student in an Organized Health Care Education/Training Program; PCP Nurse Practitioner
DX: M54.32 Sciatica, left side (principal); F17.200 Nicotine dependence, unspecified, uncomplicated
CPT/HCPCS: 73502; 96372; 99284; J3301

== ENCOUNTER 2024-09-08 06:55 | Outpatient (OUT) | payer BC, SELFPAY ==
--- NOTE | 2024-09-08 | XR_ITS ---
The [address] [address] Patient Name: SARAH REA MRN: [id number] date: 1985 Sex: M Assigned Patient Location: RAD Current Patient Location: [facility] Accession/Order Number: [id number] Exam Date: 09/08/2024 07:05 Report Date: 09/08/2024 10:27 At the request of: SILVIA OWENS Procedure: XR knee LT 3V PROCEDURE: XR knee LT 3V HISTORY: Acute left knee pain; M25.562 COMPARISON: None. FINDINGS: BONES:No fracture, acute abnormality, or significant arthropathy. SOFT TISSUES:No visible soft tissue swelling. EFFUSION:None visible. OTHER: Negative. XR/XR knee LT 3V IMPRESSION: 1. No acute abnormality or appreciable degenerative changes. Electronically authenticated by: JUMANA DEE Date: 09/08/2024 10:27
--- OUTSIDE RECORDS SUMMARY | 2024-09-08 06:59 | XMS_ITS | CCD ---
Author Organization [facility] Care Team Providers Care Epitaxial Reactor Technician Name Role Phone NONE, XXXX Primary Care [...] ilable MD Girma Arizmendi Attending Provider [phone] SILVIA EASTON Primary Care Unavailable Girma Arizmendi Attending Unavailab le Girma Arizmendi Admitting Unavailab le NO FAMILY, PHYSICIAN Primary Care Unavailable Allergies Allergy Classification Reported Allergen(s) Allergy Type Date of Onset Reaction(s) Facility (1 source) No Known Medication Allergies; Translations: [No Known Medication Allergies] Propensity to adverse reactions (disorder) [facility] Repository Medications Current Medications Medication Drug [...] day(s), # 10 cap(s), Refills(s) 0, Pharmacy: [id number], 177, cm, 03/18/22 13:43:00 EDT, Height/Length Dosing, 135, kg, 03/18/22 13:43:00 EDT, Weight Dosing Start Date: 03/18/22 Stop Date: 03/23/22 Status: Ordered dextromethorphan hydrobromide 15 mg / guaiFENesin 400 mg / pseudoephedrine hydrochloride 60 mg oral tablet (1 source) alpha-Adrenergic Agonist, Uncompetitive G-ktishn-Y-aspartat e Receptor Antagonist, Sigma-1 Agonist Start: 03-29-2024 [...] noon/midday Start: 07-14-2023 take 1 capsule by [facility] in the morning FLUoxetine (PROzac) 40 [...] sources) Mood disorders Onset: 07-14-2023 Resolved: 08-18-2023 08-18-2023 Other aftercare (1 source) Other long term acute care registered nurse (current) drug therapy; Translations: [OTH PIGMENT WEIGHER CURRENT DRUG THERAPY] Onset: 04-01-2022 Episodic Other [...] Unclassified (2 sources) Onset: 07-14-2023 Resolved: 08-18-2023 08-18-2023 Results Test Name Value Interpretation Reference Range Facility XR hand LT min 3V*on 023 XR hand LT min 3V* [facility] [employer] Other XR hand LT min 3V* [facility] [employer] Other XR hand LT min 3V* [facility] [employer] Other XR hand LT min 3V* [place] [address] [place] [employer] Other XR hand LT min 3V* XRay Report [email or web address] Other XR hand LT min 3V* Signed [facility] Other XR hand LT min 3V* Patient: Lele Norwood MR#: [id number] [place] [employer] Other XR hand LT min 3V* 9 [facility] Other XR hand LT min 3V* : 1985 Acct:[id number] [facility] Other XR hand LT min 3V* Age/Sex: 37 / M ADM Date: 02/16/23 [facility] Other XR hand LT min 3V* Loc: [facility] [place] Room: Type : [facility] [employer] Other XR hand LT min 3V* Attending Dr: Melody BEACH [facility] Other XR hand LT min 3V* Copies to: [facility] Other XR hand LT min 3V* Ordering Provider: [facility] Other XR hand LT min 3V* Date of Service: 02/16/23 [facility] Other XR hand LT min 3V* XR/XR hand LT min 3V*: S69.92XA [email or web address] Other XR hand LT min 3V* 4 views LEFT hand plain film [email or web address] Other XR hand LT min 3V* COMPARISON: None [facility] Other XR hand LT min 3V* HISTORY: Hyperextension of the thumb. [employer] Other XR hand LT min 3V* ACUTE FINDINGS: None [employer] Other XR hand LT min 3V* DEGENERATIVE CHANGE: Unremarkable [facility] Other XR hand LT min 3V* SOFT TISSUE FINDINGS : Unremarkable [facility] Other XR hand LT min 3V* JOINT EFFUSION: None [facility] Other XR hand LT min 3V* POSTOP CHANGES: None [facility] Other XR hand LT min 3V* BONY MINERALIZATION: Adequate [facility] Other XR hand LT min 3V* XR/XR hand LT min 3V* [facility] Other XR hand LT min 3V* IMPRESSION: No acute findings [facility] Other XR hand LT min 3V* Impression dictated by: Donta Alvares M.D.02/16/2023 3:57 PM [facility] Other XR hand LT min 3V* Dictation Location: [place] [address] [employer] Other XR hand LT min 3V* Transcribed By: MIGUELINA 02/16/23 1557 [facility] Other XR hand LT min 3V* Dictated By: Donta Alvares DO 02/16/23 1545 [facility] Other XR hand LT min 3V* Signed By: [email or web address] Other XR hand LT min 3V* 02/16/23 1557 [facility] [employer] Other ER URINE PROFILEon 2 Bilirubin Ql (U) Negative Normal NEGATIVE [facility] Comment on above: Performed By: #### E RUR #### [facility] [address] [place] [address] Dr. Sailaja Barillas Clarity (U) CLEAR Normal CLEAR [facility] Comment on above: Performed By: #### E RUR #### [facility] [address] [place] [address] Dr. Sailaja Barillas Color (U) LT. YELLOW Normal YELLOW [facility] Comment on above: Performed By: #### E RUR #### [facility] [address] [place] [address] Dr. Sailaja SWANSON A micrscopic examination will be performed if indicated. Normal [facility] Comment on above: Performed By: #### E RUR #### [facility] [address] [place] [address] Dr. Sailaja Barillas Glucose Ql (U) Negative Normal NEGATIVE [facility] Comment on above: Performed By: #### E RUR #### [facility] [address] [place] [address] Dr. Sailaja Barillas Hemoglobin Ql (U) Negative Normal NEGATIVE [facility] Comment on above: Performed By: #### E RUR #### [facility] [address] [place] [address] Dr. Sailaja Barillas Ketones Ql (U) Negative Normal NEGATIVE [facility] Comment on above: Performed By: #### E RUR #### [facility] [address] [place] [address] Dr. Sailaja Barillas LEUKOCYTES Negative Normal NEGATIVE [facility] Comment on above: Performed By: #### E RUR #### [facility] [address] [place] [address] Dr. Sailaja Barillas Nitrite Ql (U) Negative Normal NEGATIVE [facility] Comment on above: Performed By: #### E RUR #### [facility] [address] [place] [address] Dr. Sailaja Barillas pH (U) 7.0 [pH] Normal 5-9 [facility] Comment on above: Performed By: #### E RUR #### [facility] [address] [place] [address] Dr. Sailaja Barillas SPEC GRAVITY 1.015 Normal 1.005-<=1.025 [facility] Comment on above: Performed By: #### E RUR #### [facility] [address] [place] [address] Dr. Sailaja Barillas UA PROTEIN Negative Normal NEGATIVE/ TRACE [facility] Comment on above: Performed By: #### E RUR #### [facility] [address] [place] [address] Dr. Sailaja Barillas UR MICRO IND NOT INDICATED Normal [facility] Comment on above: Performed By: #### E RUR #### [facility] [address] [place] [address] Dr. Sailaja Barillas Urobilinogen Qn (U) 0.2 {Gael'U}/dL Normal 0.2 - 1.0 [facility] Comment on above: Performed By: #### E RUR #### [facility] [address] [place] [address] Dr. Sailaja Barillas CBC AUTO DIFFon 03-20-2022 BASO # 0.1 103/ul Normal 0.0-0.1 [facility] Comment on above: Performed By: #### C BC #### [facility] [address] [place] [address] Dr. Sailaja Barillas Basophils/100 WBC (Bld) 0.7 % Normal 0.2-2.0 [facility] Comment on above: Performed By: #### C BC #### [facility] [address] [place] [address] Dr. Sailaja Barillas EO # 0.1 103/ul Normal 0.0-0.7 [facility] Comment on above: Performed By: #### C BC #### [facility] [address] [place] [address] Dr. Sailaja Barillas Eosinophils/100 WBC (Bld) 0.9 % Normal 0.9-7.0 [facility] Comment on above: Performed By: #### C BC #### [facility] [address] [place] [address] Dr. Sailaja Barillas Erythrocyte distribution width (RBC) [Ratio] 12.9 % Normal 11.0-15.0 [facility] Comment on above: Performed By: #### C BC #### [facility] [address] [place] [address] Dr. Sailaja Barillas Hematocrit (Bld) [Volume fraction] 39.4 % Critically low 42.0-54.0 [facility] Comment on above: Performed By: #### C BC #### [facility] [address] [place] [address] Dr. Sailaja Barillas Hemoglobin (Bld) [Mass/Vol] 13.5 g/dL Critically low 14.0-18.0 [facility] Comment on above: Performed By: #### C BC #### [facility] [address] [place] [address] Dr. Sailaja Barillas IG # 0.03 10e3/ul Normal 0.00-0.03 [facility] Comment on above: Performed By: #### C BC #### [facility] [address] [place] [address] Dr. Sailaja Barillas IG % 0.3 % Normal 0.0-0.5 [facility] Comment on above: Performed By: #### C BC #### [facility] [address] [place] [address] Dr. Sailaja Barillas LYMPH # 2.6 103/ul Normal 1.2-3.8 [facility] Comment on above: Performed By: #### C BC #### [facility] [address] [place] [address] Dr. Sailaja Barillas Lymphocytes/100 WBC (Bld) 29.4 % Normal 20.5-60.0 [facility] Comment on above: Performed By: #### C BC #### [facility] [address] [place] [address] Dr. Sailaja Barillas MANUAL DIFF REQ NO Normal [facility] Comment on above: Performed By: #### C BC #### [facility] [address] [place] [address] Dr. Sailaja Barillas MCH (RBC) [Entitic mass] 30.4 pg Normal 25.9-34.0 [facility] Comment on above: Performed By: #### C BC #### [facility] [address] [place] [address] Dr. Sailaja Barillas MCHC (RBC) [Mass/Vol] 34.3 g/dL Normal 29.9-35.2 [facility] Comment on above: Performed By: #### C BC #### [facility] [address] [place] [address] Dr. Sailaja Barillas MCV (RBC) [Entitic vol] 88.7 fL Normal 80.0-94.0 [facility] Comment on above: Performed By: #### C BC #### [facility] [address] [place] [address] Dr. Sailaja Barillas MONO # 0.7 103/ul Normal 0.3-0.8 [facility] Comment on above: Performed By: #### C BC #### [facility] [address] [place] [address] Dr. Sailaja Barillas Monocytes/100 WBC (Bld) 8.4 % Normal 1.7-12.0 [facility] Comment on above: Performed By: #### C BC #### [facility] [address] [place] [address] Dr. Sailaja Barillas NEUT # 5.3 103/ul Normal 1.4-6.5 [facility] Comment on above: Performed By: #### C BC #### [facility] [address] [place] [address] Dr. Sailaja Barillas Neutrophils/100 WBC (Bld) 60.3 % Normal 43.0-75.0 [facility] Comment on above: Performed By: #### C BC #### [facility] [address] [place] [address] Dr. Sailaja Barillas Platelet mean volume (Bld) [Entitic vol] 9.6 fL Normal 9.5-13.5 [facility] Comment on above: Performed By: #### C BC #### [facility] [address] [place] [address] Dr. Sailaja Barillas PLT 242 103/ul Normal 150-450 [facility] Comment on above: Performed By: #### C BC #### [facility] [address] [place] [address] Dr. Sailaja Barillas RBC 4.44 106/ul Critically low 4.70-6.10 [facility] Comment on above: Performed By: #### C BC #### [facility] [address] [place] [address] Dr. Sailaja Barillas WBC 8.8 103/ul Normal 4.0-11.0 [facility] Comment on above: Performed By: #### C BC #### [facility] [address] [place] [address] Dr. Sailaja Barillas ER URINE PROFILEon 2 Bilirubin Ql (U) Negative Normal NEGATIVE [facility] Comment on above: Performed By: #### E RUR #### [facility] [address] [place] [address] Dr. Sailaja Barillas Clarity (U) CLEAR Normal CLEAR [facility] Comment on above: Performed By: #### E RUR #### [facility] [address] [place] [address] Dr. Sailaja Barillas Color (U) YELLOW Normal YELLOW [facility] Comment on above: Performed By: #### E RUR #### [facility] [address] [place] [address] Dr. Sailaja Barillas ERUAHD A micrscopic examination will be performed if indicated. Normal [facility] Comment on above: Performed By: #### E RUR #### [facility] [address] [place] [address] Dr. Sailaaj Barillas Glucose Ql (U) Negative Normal NEGATIVE [facility] Comment on above: Performed By: #### E RUR #### [facility] [address] [place] [address] Dr. Sailaja Barillas Hemoglobin Ql (U) Negative Normal NEGATIVE [facility] Comment on above: Performed By: #### E RUR #### [facility] [address] [place] [address] Dr. Sailaja Barillas Ketones Ql (U) Negative Normal NEGATIVE [facility] Comment on above: Performed By: #### E RUR #### [facility] [address] [place] [address] Dr. Sailaja Barillas LEUKOCYTES Negative Normal NEGATIVE [facility] Comment on above: Performed By: #### E RUR #### [facility] [address] [place] [address] Dr. Sailaja Barillas Nitrite Ql (U) Negative Normal NEGATIVE [facility] Comment on above: Performed By: #### E RUR #### [facility] [address] [place] [address] Dr. Sailaja Barillas pH (U) 5.5 [pH] Normal 5-9 [facility] Comment on above: Performed By: #### E RUR #### [facility] [address] [place] [address] Dr. Sailaja Barillas SPEC GRAVITY 1.025 Normal 1.005-<=1.025 [facility] Comment on above: Performed By: #### E RUR #### [facility] [address] [place] [address] Dr. Sailaja Barillas UA PROTEIN Negative Normal NEGATIVE/ TRACE [facility] Comment on above: Performed By: #### E RUR #### [facility] [address] [place] [address] Dr. Sailaja Barillas UR MICRO IND NOT INDICATED Normal [facility] Comment on above: Performed By: #### E RUR #### [facility] [address] [place] [address] Dr. Sailaja Barillas Urobilinogen Qn (U) 0.2 {Gael'U}/dL Normal 0.2 - 1.0 [facility] Comment on above: Performed By: #### E RUR #### [facility] [address] [place] [address] [address] Sailaja Barillas PROF CHEM 8 (BAS METB)on Anion gap [Moles/Vol] 11.1 mmol/L Normal [facility] Comment on above: Performed By: #### B MP #### [facility] [address] [place] [address] Dr. Sailaja Barillas Calcium [Mass/Vol] 8.5 mg/dL Normal 8.5-10.1 [facility] Comment on above: Performed By: #### B MP #### [facility] [address] [place] [address] Dr. Sailaja Barillas Chloride [Moles/Vol] 106 mmol/L Normal 98-107 [facility] Comment on above: Performed By: #### B MP #### [facility] [address] [place] [address] Dr. Sailaja Barillas CO2 [Moles/Vol] 26.8 mmol/L Normal 21.0-32.0 The [facility] Comment on above: Performed By: #### B MP #### [facility] [address] [place] [address] Dr. Sailaja Barillas Creatinine [Mass/Vol] 0.97 mg/dL Normal 0.70-1.30 [facility] Comment on above: Performed By: #### B MP #### [facility] [address] [place] [address] Dr. Sailaja Barillas EGFR-AF MALAYSIAN >60 Normal >=60 The [facility] Comment on above: Performed By: #### B MP #### [facility] [address] [place] [address] Dr. Sailaja Barillas EGFR-NON AF MALAYSIAN >60 Normal >=60 [facility] Comment on above: Performed By: #### B MP #### [facility] [address] [place] [address] Dr. Sailaja Barillas Glucose [Mass/Vol] 102 mg/dL Normal 74-106 [facility] Comment on above: Performed By: #### B MP #### [facility] [address] [place] [address] Dr. Sailaja Barillas Potassium [Moles/Vol] 3.9 mmol/L Normal 3.5-5.1 [facility] Comment on above: Performed By: #### B MP #### [facility] [address] [address] [address] Sailaja Barillas Sodium [Moles/Vol] 140 mmol/L Normal 136-145 [facility] Comment on above: Performed By: #### B MP #### [facility] [address] [address] [address] Sailaja Barillas Urea nitrogen [Mass/Vol] 10.0 mg/dL Normal 7.0-18.0 [facility] Comment on above: Performed By: #### B MP #### [facility] [address] [address] [address] Sailaja Barillas Urea nitrogen/Creatinin e [Mass ratio] 10.3 mg/mg Normal [facility] Comment on above: Performed By: #### B MP #### [facility] [address] [place] [address] [address] Sailaja Barillas US SCROTUM W VASCULAR ORGANo n 03-20-2022 US SCROTUM W VASCULAR ORGAN EXAM: US SCROTUM W VASCULAR ORGAN HISTORY: Postoperative pain COMPARISON: None. TECHNIQUE: Alan scale imaging as well as color and duplex Doppler ultrasound examination of the scrotum and its contents were performed. FINDINGS: The testes are normal in size and echotexture without focal abnormality. The right testicle per linseed oil press tender although appears slightly more proximal within the [...] by: LILA JEFFREY Date: 2022-03-20 18:55 Normal [facility] XR KNEE RT 4V or >on 022 [...] by: SANIYA MATOS Date: 2022-03-01 13:40 Normal [facility] Vital Signs Date Time Vital Sign Value Performing Clinician Facility 03-29-2024 09:08-0400 Body height 177.8 cm PHYSICIAN NO [facility] 03-29-2024 09:08-0400 Body mass index (BMI) [Ratio] 36.3 kg/m2 PHYSICIAN NO [facility] 03-29-2024 09:08-0400 Body temperature 97.7 [degF] [facility] 03-29-2024 09:08-0400 Body weight 114.98 kg PHYSICIAN NO [facility] 03-29-2024 09:08-0400 Diastolic blood pressure 82 mm[Hg] PHYSICIAN NO [facility] 03-29-2024 09:08-0400 Heart rate 79 /min PHYSICIAN NO [facility] 03-29-2024 09:08-0400 Respiratory rate 18 /min PHYSICIAN [facility] 03-29-2024 09:08-0400 SaO2% (BldA) [Mass fraction] 98 % PHYSICIAN NO [facility] 03-29-2024 09:08-0400 Systolic blood pressure 119 mm[Hg] PHYSICIAN NO [facility] 08-18-2023 10:56-0500 Body height 177.8 cm Silvia SEGOVIA Work Phone: [employer] 08-18-2023 10:56-0500 Body mass index (BMI) [Ratio] 38.48 kg/m2 Silvia SEGOVIA Work Phone: [facility] 08-18-2023 10:56-0500 Body temperature 97.81 [degF] Silvia Easton STRETCHING PRESS OPERATOR-BOAT HOIST OPERATOR Work Phone: [employer] 08-18-2023 10:56-0500 Body weight 121.66 kg Silvia Easton STRETCHING PRESS OPERATOR-BOAT HOIST OPERATOR Work Phone: [employer] 08-18-2023 10:56-0500 Diastolic blood pressure 78 mm[Hg] Silvia Easton STRETCHING PRESS OPERATOR-BOAT HOIST OPERATOR Work Phone: [facility] 08-18-2023 10:56-0500 Heart rate 83 /min Silvia Easton APRN-BOAT HOIST OPERATOR Work Phone: [facility] 08-18-2023 10:56-0500 SaO2% (BldA) [Mass fraction] 93 % Silvia Easton APRN-BOAT HOIST OPERATOR Work Phone: [facility] 08-18-2023 10:56-0500 Systolic blood pressure 120 mm[Hg] Silvia Easton STRETCHING PRESS OPERATOR-BOAT HOIST OPERATOR Work Phone: [employer] 02-16-2023 15:15-0400 Body height 177.8 cm Melody Smith Other [facility] Other 02-16-2023 15:15-0400 Body mass index (BMI) [Ratio] 34.15 kg/m2 Melody Smith Other [facility] Other 02-16-2023 15:15-0400 Body weight 107.96 kg Melody Smith Other [facility] Other 04-04-2022 10:10-0400 Respiratory rate 16 /min Keegan MIRZA [facility] 03-18-2022 13:34-0400 Blood Pressure Location Keegan MIRZA [facility] [place] 03-18-2022 13:34-0400 Diastolic blood pressure 99 mm[Hg] Keegan MIRZA [facility] [place] 03-18-2022 13:34-0400 Heart rate 83 /min Keegan MIRZA [facility] [place] 03-18-2022 13:34-0400 Systolic blood pressure 158 mm[Hg] Keegan MIRZA [facility] [place] Encounters Encounter Date Encounter Type Care Provider Facility Start: 06-03-2024 ambulatory Girma Cardoso acility:[facility] Start: 05-22-2024 End: 05-22-2024 Emergency department patient visit [facility] Start: 03-29-2024 End: 03-29-2024 ambulatory PHYSICIAN NO [facility] Work Phone: Start: 03-29-2024 End: 03-29-2024 Patient encounter procedure PHYSICIAN NO [facility] Phys[facility] Work Phone: Start: 02-18-2024 Registered Recurring PHYSICIAN NO [facility] Start: 12-31-2023 Non-patient / Non-visit PHYSICIAN NO [facility] Phys[facility] Work Phone: Start: 08-18-2023 End: 08-18-2023 ambulatory [facility] Start: 08-18-2023 End: 08-18-2023 Office outpatient visit 15 minutes Silvia Easton STRETCHING PRESS OPERATOR-BOAT HOIST OPERATOR Work Phone: [facility] Comment on above: Filiform wart (Prima ry Dx); Bipolar disorder, current episode manic without psychotic features, severe ([facility]) Start: 08-03-2023 Telephone encounter Tammie Kennedy MA [facility] Start: 07-14-2023 End: 07-14-2023 ambulatory SILVIA Malik [facility] Start: 05-27-2023 End: 05-27-2023 ambulatory Hazel Harden Other [facility] Other Start: 05-27-2023 Office outpatient ne w 45 minutes Hazel Harden [facility] Start: 05-14-2023 End: 05-14-2023 ambulatory PHYSICIAN NO [facility] Work Phone: Start: 05-14-2023 End: 05-14-2023 Patient encounter procedure PHYSICIAN NO [facility] [address] Work Phone: Start: 03-10-2023 End: 03-10-2023 ambulatory Melody Smith Other [facility] Other Start: 03-10-2023 Office outpatient visit 15 minutes Melody Smith [facility] Start: 02-16-2023 End: 02-16-2023 Patient encounter procedure PHYSICIAN NO [facility] Start: 02-16-2023 End: 02-16-2023 ambulatory Melody Smith Other [facility] Other Start: 02-16-2023 Office outpatient ne w 30 minutes Melody Smith [facility] Start: 04-08-2022 ambulatory Facility:[facility] [place] Start: 04-04-2022 End: 04-04-2022 Patient encounter procedure Keegan MIRZA [facility] Start: 03-31-2022 End: 03-31-2022 ambulatory EMELY HONEYCUTT Facility:[facility] Start: 03-20-2022 End: 03-20-2022 ambulatory NONE LISTED REQUEST Facility:[facility] Start: 03-18-2022 End: 03-18-2022 Lab Drop off Keegan MIRZA [facility] Start: 03-18-2022 End: 03-18-2022 Patient encounter procedure Keegan MIRZA [facility] Start: 03-01-2022 End: 03-01-2022 ambulatory NONE LISTED REQUEST Facility: Procedures Date Procedure Procedure Detail Performing Clinician Start: 08-18-2023 Adult depression screening assessment Silvia SEGOVIA Work Phone: Start: 07-14-2023 Adult depression screening assessment Tammie Love [facility] Start: 02-16-2023 Plain X-ray of left hand PHYSICIAN NO FAMILY Start: 04-04-2022 H/O: vasectomy Keegan MIRZA Start: 03-18-2022 Vasectomy Keegan ZUNIGA Plan of Treatment Date Care Activity Detail Author Start: 05-12-2028 DTaP,Tdap and Td Vaccines (8 - Td or Tdap) DTaP,Tdap and Td Vaccines (8 - Td or Tdap) [facility] Start: 08-18-2024 Adult BMI Screening Adult BMI Screen ing [facility] Start: 08-18-2024 Depression Screening Depression Scre [facility] Start: 08-18-2024 Tobacco Screening Tobacco Screening [facility] Start: 07-14-2024 Adult BMI Follow Up Plan Adult BMI Follow Up Plan [facility] Start: 07-14-2024 Depression Screening Depression Scre ening [facility] Start: 07-14-2024 Tobacco Screening Tobacco Screening [facility] Start: 06-09-2024 Adult BMI Screening Adult BMI Screen ing [facility] Start: 08-18-2023 End: 08-18-2023 Patient encounter procedure 08/18/2023 11:00 AM EST [facility] [address] [place] [id number] Silvia Easton, STRETCHING PRESS OPERATOR-BOAT HOIST OPERATOR [address] [place] [address] [facility] Start: 05-14-2023 MRI of left hand MR hand LT wo con F [facility] Start: 03-27-2023 COVID-19 Vaccine ( season) COVID-19 Vaccine ( season) [facility] Start: 03-27-2023 Influenza vaccination Influenza Vacc ine [facility] Immunizations Immunization Date Immunization Notes Care Provider Fa cility 02-28-2021 COVID-19 Vaccine, vector-nr, rS-Ad26, PF, 0.5mL Tammie Love [facility] 02-24-2021 SARS-CoV-2 (COVID-19 ) Ad26 vaccine, recombinant Keegan IMRZA [facility] 06-14-2020 Influenza, injectabl e, Madin Mirian Canine Kidney, preservative free, quadrivalent Tammie Love [facility] 06-14-2020 pneumococcal polysaccharide vaccine, 23 valent Tammie Love [facility] 06-14-2020 influenza virus vaccine, unspecified formulation Tammie Love [facility] 05-12-2018 influenza, injectabl e, quadrivalent, preservative free Tammie Love [facility] 05-12-2018 tetanus toxoid, redu mey diphtheria toxoid, and acellular pertussis vaccine, adsorbed Tammie Love [facility] 01-05-2002 hepatitis B vaccine, pediatric or pediatric/adolescent dosage [facility] 04-23-2000 hepatitis B vaccine, pediatric or pediatric/adolescent dosage [facility] 02-20-2000 hepatitis B vaccine, pediatric or pediatric/adolescent dosage [facility] 02-20-2000 tetanus and diphther ia toxoids, adsorbed, preservative free, for adult use (2 Lf of tetanus toxoid and 2 Lf of diphtheria toxoid) [facility] 01-21-2000 hepatitis B vaccine, pediatric or pediatric/adolescent dosage [facility] 05-17-1993 measles, mumps and rubella virus vaccine [facility] 09-15-1990 diphtheria, tetanus toxoids and pertussis vaccine [facility] 09-15-1990 haemophilus influenz ae type b vaccine, conjugate unspecified formulation [facility] 09-15-1990 trivalent poliovirus vaccine, live, oral [facility] 01-31-1987 diphtheria, tetanus toxoids and pertussis vaccine [facility] 01-31-1987 measles, mumps and rubella virus vaccine [facility] 01-31-1987 trivalent poliovirus vaccine, live, oral [facility] 05-17-1986 diphtheria, tetanus toxoids and pertussis vaccine [facility] 03-15-1986 diphtheria, tetanus toxoids and pertussis vaccine [facility] 03-15-1986 trivalent poliovirus vaccine, live, oral [facility] 01-11-1986 diphtheria, tetanus toxoids and pertussis vaccine [facility] 01-11-1986 trivalent poliovirus vaccine, live, oral [facility] NEGATED: Highlighted row has not occurred!02-10-2022 SARS-CoV-2 mRNA (tozinameran 5y-11y) vaccine Keegan MIRZA [facility] Payers Date Payer Category Payer Unknown [id number] 2023 Self-pay 2022 [employer] Blue [employer] [id number] 2022 Unknown ZAN MAURICIO SS (PPO) [id number] 2022-Present [phone] [address] [place] [address] [id number] 1985 Unknown [id number] 93 1985 Unknown [id number] 93 1985 Unknown [id number] 93 1985 Unknown [id number] 286 1985 Unknown [id number] 286 1985 Unknown [id number] 286 1959 Unknown [id number] 1959 Unknown [id number] 1959 Unknown [id number] Unknown [id number] 31 Social History Date Type Detail Facility Start: 03-18-2022 Tobacco smoking status Light t obacco smoker (finding) [facility] Tobacco smoking status Smoker (finding) [facility] Start: 09-05-2020 End: 09-26-2020 Sex Assigned At Male [facility] Start: 04-04-2022 End: 05-07-2023 Tobacco smoking status Ex-smoker (finding) [facility] Start: 1985 Sex Assigned At Male F [facility] History of tobacco use Cigarette Smoker [facility] Start: 05-07-2023 Tobacco use and exposure Smoke less tobacco non-user [facility] Start: 07-14-2023 End: 08-18-2023 [facility] Start: 09-05-2020 End: 09-26-2020 History of Social function [facility] Frequency of Alcohol Consumption Never [facility] Start: 1985 Sex Assigned At Not on file P [facility] Functional Status Date Assessment Result Facility 04-04-2022 Functional Status N/A [facility] 03-18-2022 Functional Status N/A [facility] Clinical Notes 03-18-2022 to 08-18-2023 [facility]/18/[facility]23 11:00 AM ESTTelephone Encounter - Tammie Love [facility] - 08/03/2023 11:52 AM ESTTelephone Encounter - [facility] 08/03/2023 11:52 AM EST Note Date & Type Note Facility 08-18-2023 History of Presen t illness Narrative Images from the original note were not included. [address] [facility] [address] SUBJECTIVE: Patient ID: Lele Norwood is a 37 y.o. male. Chief Complaint Patient presents with Manic Behavior States his moods have stabilized. Feels he is doing well with updated medication regimen. Is now being monitored by psychiatry and counseling. Plays [employer] and noticed his playing has improved. Enjoys [...] Medical History: Diagnosis Date Affective bipolar disorder ([facility]) Anxiety Depression Hemorrhoids Shortness of [...] current episode manic without psychotic features, severe ([facility]) - ARIPiprazole (ABILIFY) 10 mg [...] Steele 08/18/23 1128 documented in this encounter [facility] 08-03-2023 Miscellaneous Notes Formattin g of this note might be different from the original. Patient states he needs a letter to give t child support stating he is unable to work so he does not go to retirement. Done documented in this encounter [facility] 08-03-2023 Telephone encount er Note Patient states he needs a letter to give t child support stating he is unable to work so he does not go to retirement. [facility] 08-03-2023 Telephone encount er Note Done [facility] 05-27-2023 Evaluation note Encounter Date Diagnosis Assessment [...] Pain of left thumb (ICD-10 - M79.645) [facility] 08-15-2023 Evaluation note* Encounter Date Diagnosis Assessment Notes Treatment Notes Treatment Clinical Notes Feb, Sprain of metacarpophalangeal joint of left thumb, subsequent encounter (ICD-10 - S63.642D) As patient was unable to utlize the splint we provided, instructed on over the counter lower profile spica splint to allow rest to the joint while it recovers. Continue to avoid strenuous use of the thumb. [facility] 07-24-2023 Evaluation note* Encounter Date Diagnosis [...] appropriate use of splinting during healing period. [facility] 09-09-2022 Evaluation + Plan note Future Scheduled Tests Laboratory* Semen Analysis Post Vasectomy 04/04/22 * Semen Analysis Post Vasectomy 04/04/22 [facility] Hospital Discharge instructions Patient Education 04/04/2022 [...] 07/13/2006 Document Revised: 07/15/2018 Document Reviewed: 08/15/2017 [employer] Patient Education 2020 [place]. Follow Up Care 02/25/2022 09:09:29 With:HERMES ESPOSITO, Keegan Ryder, URL Address: [address] [place] [address]- When: Unknown [facility] 08-23-2022 Hospital Discharge instructions Patient Education [...] Follow these instructions at home: Medicines Take [id number] and prescription medicines only as told by [...] 01/30/2006 Document Revised: 06/25/2018 Document Reviewed: 10/09/2017 [employer] Patient Education 2020 [place]. Follow Up Care 03/05/2022 11:43:44 With:HERMES ESPOSITO, Keegan Ryder, URL Address: [facility] [address], [place] [phone] When: Unknown [facility] evaluation + Plan note Future Appointments Appointment Date:04/04/2022 09:45:00 AM Scheduled Provider:Keegan MIRZA MD Location:[facility] Appointment Type:URO Office Visit [facility] evalufmtsc noteNo assessment information available [facility] Work Phone: Evalugtbxj note* Diagnosis Filiform wart- Primary Bipolar disorder, current episode manic without psychotic features, severe (CMS-HCC) [facility] N[facility] - Reported* Type Description Date Medical History anxiety Medical History depression Medical History gout Surgical History vasectomy 2021 [facility] Hospital course Narrative No data available for this section [facility] Hospital Discharge instructions No data available for this section [facility] Attachments The following attachments cannot be sent through Care Everywhere. * Bipolar disorder (Samoan) * Warts on the Skin (Samoan) [facility] SystemInstructionsNot on file documented in this [facility]Pro[facility] SystemProgress note No data available for this section [facility] Reason for referral (narrative)* Consultation (Routine) - Pending Review Specialty Diagnoses / Procedures Referred By Maliha petersen Referred To Contact Dermatology Diagnoses Filiform wart Silvia Easton, STRETCHING PRESS OPERATOR-BOAT HOIST OPERATOR [address] [place] [address] Billie Jacobs MD [address], [facility] [address] [place] [address] Referral ID Status Reason Start Date Expiration Date Visits Requested Visits Authorized [id number] Pending Review Specialty Services Required 08/18/2023 08/17/2024 1 1 [facility] Summary Purpose Family History No Family History Records FoundNo Family History Records FoundNo Family History Records FoundNo Family History Records FoundNo Family History Records Found Advance Directives Advance Directive Response Recorded Date/ Time Advance [...] content) DATE CREATED AUTHOR 07/02/2022 [facility] DATE CREATED AUTHOR AUTHOR'S ORGANIZ ATION 05/14/2023 [facility] DATE CREATED AUTHOR AUTHOR'S ORGANIZ ATION 08/21/2023 [facility] DATE CREATED AUTHOR AUTHOR'S ORGANIZ ATION 05/23/2024 [facility] DATE CREATED AUTHOR AUTHOR'S ORGANIZ ATION 06/04/2024 [facility] REASON FOR VISIT (unrecogniz [...] March 29, 2024 End: March 29, 2024 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 [facility] Dining Secretary [facility]. provides no warranty or guarantee of the accuracy or completeness of information in this document.
== END 2024-09-08 06:56 | disposition home or self-care (01) ==
LOC: RAD 06:57
PROVIDERS: PCP Nurse Practitioner; Visit Provider Nurse Practitioner
DX: M25.562 Pain in left knee (principal)
CPT/HCPCS: 73562

== ENCOUNTER 2024-10-05 21:41 | Emergency (ER) | payer BC, SELFPAY ==
[2024-10-05 21:46] VITALS: BP 141/86; PULSE 77; TEMP 36.8; O2SAT 98; BMI 34.9
--- OUTSIDE RECORDS SUMMARY | 2024-10-05 21:48 | XMS_ITS | CCD ---
Author Organization [facility] Care Team Providers Care Dry Transfer Man Name Role Phone NONE, XXXX Primary Care Physician Unavailab le REQUEST, DR NONE LISTED Primary Care Unavaila herminio HENDERSON, DR LEE Admitting Unavailable HAY, DR LEE Attending Unavailable SANTIAGO, DR LEE Consulting Unavailable SANIYA MATOS Consulting Unavailable NAKIA, DR SALAMANCA LISTED Primary Care Unavaila OMID Mcgee Admitting Unavailable LISETTE, MEGHANA YEN Consulting Unavailable OMID MENON Attending Unavailable LILA JEFFREY Consulting Unavailable EMELY HONEYCUTT Admitting Unavailable NAKIA, NONE LISTED Primary Care Unavaila EMELY Russo Attending Unavailable EMELY HONEYCUTT Consulting Unavailable Melody Smith Unavailable BAYLEE Smith Attending Provider NO FAMILY, PHYSICIAN Primary Care Provider Unava ilable Hazel Harden Unavailable NO FAMILY, PHYSICIAN Primary Care Provider Unava ilable MD Girma Arizmendi Attending Provider SILVIA EASTON Primary Care Unavailable Girma Arizmendi Attending Unavailab le Girma Arizmendi Admitting Unavailab le NO FAMILY, PHYSICIAN Primary Care Unavailable Silvia Mckeon Primary Care Provid er Silvia Mckeon Primary Care Provid er SILVIA EASTON Attending Unavailable SILVIA EASTON Referring Unavailable SILVIA EASTON Primary Care Unavailable SILVIA EASTON Attending Unavailable SILVIA EASTON Referring Unavailable SILVIA EASTON Primary Care Unavailable Allergies Allergy Classification Reported Allergen(s) Allergy Type Date of Onset Reaction(s) Facility (1 source) No Known Medication Allergies; Translations: [No Known Medication Allergies] Propensity to adverse reactions (disorder) [facility] Repository Medications Current Medications Medication Drug Class(es) Dates Sig (Normalized) Sig (Original) Acetaminophen (3 sources) Tylenol Active benztropine mesylate 0.5 mg oral tablet (1 source) Anticholinergic, Antihistamine Start: 10-29-2023 Benztropine Active MG PO October 29, 2023 12:00am 24 hr buPROPion hydrochloride 300 mg extended release oral tablet (11 sources) Aminoketone Start: 06-09-2023 take 1 tablet [...] Active busPIRone hydrochloride 5 mg oral tablet (5 sources) Start: 06-24-2023 busPIRone (BUS PAR) 5 mg tablet 2 tablets (10 mg total). 06/24/2023 Active Start: 06-24-2023 take 1 tablet by baltazar th twice daily busPIRone (BUSPAR) 5 mg tablet take 1 tablet by mouth twice a day 0 06/24/2023 Active cariprazine 1.5 mg oral capsule (3 sources) Atypical Antipsychotic Start: 04-28-2024 VRAYLAR 1.5 mg capsule Take 1 capsule (1.5 mg total) by mouth. 04/28/2024 Active cephalexin 500 mg oral capsule (2 sources) Cephalosporin Antibacterial Start: 03-18-2022 End: 03-23-2022 take 1 capsule by mouth twice daily at mealtime Keflex 500 mg Cap 500 mg = 1 cap(s), Oral, BID, Start with first meal after procedure, X 5 day(s), # 10 cap(s), Refills(s) 0, Pharmacy: [id number], 177, cm, 03/18/22 13:43:00 EDT, Height/Length Dosing, 135, kg, 03/18/22 13:43:00 EDT, Weight Dosing Start Date: 03/18/22 Stop Date: 03/23/22 Status: Ordered dextromethorphan hydrobromide 15 mg / guaiFENesin 400 mg / pseudoephedrine hydrochloride 60 mg oral tablet (1 source) alpha-Adrenergic Agonist, Uncompetitive K-jrvpwi-R-aspartate Receptor Antagonist, Sigma-1 Agonist Start: 03-29-2024 take 4 tablets by mouth every twenty-four hours Pseudoephedrine -Dm-Guaifenesin (Capmist Dm) 60-15-400 mg tablet Active 1 TAB PO EVERY 4-6 HOURS March 29, 2024 12:00am do not exceed 4 doses per 24 hrs doxepin hydrochloride 10 mg oral capsule (3 sources) Tricyclic Antidepressant Start: 04-29-2024 take 1 capsule by mouth three times daily as needed doxepin (SINEquan) 10 mg capsule Take 1 capsule (10 mg total) by mouth 3 (three) times a day as needed. 04/29/2024 Active FLUoxetine 10 mg oral capsule (12 sources) Serotonin Reuptake Inhibitor Start: 03-29-2024 take 1 capsule by mouth twice daily in the morning Fluoxetine (Prozac) 10 mg capsule Active 10 MG PO Twice daily March 29, 2024 12:00am administer in the morning and at noon/midday Start: 07-14-2023 take 1 capsule by [facility] in the morning FLUoxetine (PROzac) 40 mg capsule Indications: Bipolar disorder, current episode manic without psychotic features, severe (CMS-HCC) Take 1 capsule (40 mg total) by mouth in the morning. 30 capsule 3 07/14/2023 Active Start: 02-10-2022 take 1 mg by mouth once daily Prozac 40 mg Cap mg cap(s), Oral, Daily, Refills(s) 0 Start Date: 02/10/22 Status: Ordered ibuprofen 800 mg oral tablet (7 sources) Nonsteroidal Anti-inflammatory Drug Start: 08-01-2024 End: 09-07-2024 take 1 tablet by mouth every eight hours as needed for pain ibuprofen (MOTRIN) 800 mg tablet Indications: Lumbar back pain with radiculopathy affecting left lower extremity , Acute pain of left knee Take 1 tablet (800 mg total) by mouth every 8 (eight) hours as needed for pain. 60 tablet 1 09/07/2024 Active Advil Active Remeron (6 sources) Start: 02-10-2022 Remeron Oral, Once a day (at bedtime), Refills(s) 0 Start Date: 02/10/22 Status: Ordered Remeron Active Remeron Not-Taki ng microencapsulated potassium chloride 10 meq extended release oral tablet (5 sources) Start: 06-09-2023 take 1 tablet by mouth in the morning potassium chloride (KLOR-CON M 10) 10 MEQ CR tablet Indications: Hypokalemia Take 1 tablet (10 mEq total) by mouth in the morning. 30 tablet 3 06/09/2023 Active predniSONE 20 mg oral tablet (3 sources) Start: 09-07-2024 End: 09-26-2024 predniSONE (DELTASONE) 20 mg tablet Indications: Lumbar back pain with radiculopathy affecting left lower extremity , Acute pain of left knee Take 1 tablet (20 mg total) by mouth See Admin Instructions. 1 tab 2x daily x3 days, 1 tab daily x3 days, 1/2 tablet daily x4 days 11 tablet 09/07/2024 09/26/2024 Discontinued (Therapy completed) QUEtiapine 100 mg oral tablet (5 sources) Atypical Antipsychotic Start: 06-09-2023 End: 09-26-2024 take 1 tablet by mouth once daily QUEtiapine (SeroqueL) 100 mg tablet Indications: Bipolar disorder, current episode manic without psychotic features, severe (CMS-HCC) Take 1 tablet (100 mg total) by mouth nightly. 30 tablet 2 06/09/2023 09/26/2024 Discontinued (Therapy completed) tiZANidine 2 mg oral tablet (4 sources) Central alpha-2 Adrenergic Agonist Start: 09-26-2024 take 1 tablet by mouth every eight hours as needed for muscle spasms tiZANidine (ZANAFLEX) 2 mg tablet Indications: Lumbar back pain with radiculopathy affecting left lower extremity Take 1 tablet (2 mg total) by mouth every 8 (eight) hours as needed for muscle spasms. 30 tablet 1 09/26/2024 Active Start: 09-07-2024 End: 09-26-2024 take 1 tablet by mouth every eight hours as needed for muscle spasms tiZANidine (ZANAFLEX) 2 mg tablet Indications: Lumbar back pain with radiculopathy affecting left lower extremity Take 1 tablet (2 mg total) by mouth every 8 (eight) hours as needed for muscle spasms. 20 tablet 09/07/2024 09/26/2024 Discontinued (Reorder) traZODone hydrochloride 50 mg oral tablet (5 sources) Serotonin Reuptake Inhibitor Start: 06-24-2023 take 1 tablet by mouth at bedtime traZODone (DESYREL) 50 mg tablet take 1 tablet by mouth at bedtime if needed 06/24/2023 Active Completed/Discontinued Medications Medication Drug Class(es) Dates Sig (Normalized) Sig (Original) ARIPiprazole 10 mg oral tablet (4 sources) Atypical Antipsychotic Start: 08-18-2023 End: 09-07-2024 take 1 tablet by mouth in the morning ARIPiprazole (ABILIFY) 10 mg tablet Indications: Bipolar disorder, current episode manic without psychotic features, severe (CMS-HCC) Take 1 tablet (10 mg total) by mouth in the morning. 08/18/2023 09/07/2024 Discontinued (Therapy completed) Start: 07-14-2023 End: 08-18-2023 take 1 tablet by mouth in the morning ARIPiprazole (ABILIFY) 5 mg tablet Indications: Bipolar disorder, current episode manic without psychotic features, severe (CMS-HCC) Take 1 tablet (5 mg total) by mouth in the morning. 30 tablet 3 07/14/2023 08/18/2023 Discontinued (Reorder) triamcinolone acetonide 40 mg/ml injectable suspension (1 [...] for sterilization] Onset: 2 Episodic Mood disorders (1 source) Severe manic bipolar I disorder without psychotic features; Translations: [Bipolar disorder, current episode manic without psychotic features, severe] 08-18-2023 Chronic Other connective tissue disease (1 source) Other enthesopathies, not elsewhere classified Episodic Other connective tissue disease (1 source) Pain in left finger(s) Episodic Other non-traumatic joint disorders (3 sources) Pain in left knee; Translations: [Pain in joint, lower leg] Onset: 5 09-07-2024 Episodic Spondylosis; intervertebral disc disorders; other back problems (4 sources) Lumbar radiculopathy; Translations: [Radiculopathy, lumbar region] Onset: 5 09-07-2024 Episodic Sprains and strains (2 sources) Sprain of metacarpophalangeal joint of left thumb, initial encounter; Translations: [Sprain of metacarpophalangeal joint of left thumb, subsequent encounter] Episodic Substance-related disorders (4 sources) Smoker; Translations: [Nicotine dependence, cigarettes, uncomplicated] Onset: 2 02-10-2022 Chronic Comment on above: Added secondary to d ocumentation in Social History. Unclassified (3 sources) Patient encounter status 03-18-2022 Past or Other Problems Problem Classification Problem Date Documented Date Episodic/Chronic Mood disorders (5 sources) Mood disorders Onset: 07-14-2023 Resolved: 09-07-2024 07-14-2023 Other aftercare (1 source) Other remote computer terminal operator (current) drug therapy; Translations: [OTH LONG-TERM CURRENT DRUG THERAPY] Onset: 04-01-2022 Episodic Other [...] SPECIFIED POSTPROCEDURAL STATES] Onset: 04-01-2022 Episodic Unclassified (5 sources) Onset: 07-14-2023 Resolved: 09-26-2024 07-14-2023 Viral infection (1 source) Filiform wart; Translations: [Viral wart, unspecified] 08-18-2023 Episodic Results Test Name Value Interpretation Reference Range Facility XR hand LT min 3V*on 023 XR hand LT min 3V* [facility] Other XR hand LT min 3V* [facility] Other XR hand LT min 3V* [address] [place] [address] [employer] Other XR hand LT min 3V* [place] [address] [employer] Other XR hand LT min 3V* XRay Report [facility] Other XR hand LT min 3V* Signed [facility] Other XR hand LT min 3V* Patient: Lele Norwood MR#: [id number] [facility] Other XR hand LT min 3V* 9 [facility] Other XR hand LT min 3V* : 1985 Acct:[id number] [facility] Other XR hand LT min 3V* Age/Sex: 37 / M ADM Date: 02/16/23 [facility] Other XR hand LT min 3V* Loc: SOX Room: Type : [facility] Other XR hand LT min 3V* Attending Dr: Melody DEGROOTC [facility] Other XR hand LT min 3V* Copies to: [facility] Other XR hand LT min 3V* Ordering Provider: ES[facility] Gr [facility] Other XR hand LT min 3V* Date of Service: 02/16/23 [facility] Other XR hand LT min 3V* XR/XR hand LT min 3V*: S69.92XA [facility] Other XR hand LT min 3V* 4 views LEFT hand plain film [facility] Other XR hand LT min 3V* COMPARISON: None [facility] Other XR hand LT min 3V* HISTORY: Hyperextension of the thumb. [facility] Other XR hand LT min 3V* ACUTE FINDINGS: None [facility] Other XR hand LT min 3V* DEGENERATIVE CHANGE: Unremarkable [facility] Other XR hand LT min 3V* SOFT TISSUE FINDINGS : Unremarkable [facility] Other XR hand LT min 3V* JOINT EFFUSION: None [facility] Other XR hand LT min 3V* POSTOP CHANGES: None [facility] Other XR hand LT min 3V* BONY MINERALIZATION: Adequate [facility] Other XR hand LT min 3V* XR/XR hand LT min 3V* [facility] Other XR hand LT min 3V* IMPRESSION: No acute findings [facility] Other XR hand LT min 3V* Impression dictated by: Donta Alvares M.D.02/16/2023 3:57 PM [facility] Other XR hand LT min 3V* Dictation Location: [place] [address] [facility] Other XR hand LT min 3V* Transcribed By: PWS 02/16/23 1555 [facility] [employer] Other XR hand LT min 3V* Dictated By: Donta Alvares DO 02/16/23 1545 [facility] [employer] Other XR hand LT min 3V* Signed By: [place] [facility] Other XR hand LT min 3V* 02/16/23 1557 [facility] Yodlee Other ER URINE PROFILEon 2 Bilirubin Ql (U) Negative Normal NEGATIVE [facility] Comment on above: Performed By: #### E RUR #### [facility] [address] [place] [address] Dr. Sailaja Barillas Clarity (U) CLEAR Normal CLEAR [facility] Comment on above: Performed By: #### E RUR #### [facility] [address] [place] [address] Dr. Sailaja Barillas Color (U) LT. YELLOW Normal YELLOW [facility] Comment on above: Performed By: #### E RUR #### [facility] [address] [place] [address] Dr. Sailaja SWANSON A micrscopic examination will be performed if indicated. Normal [facility] Comment on above: Performed By: #### E RUR #### [facility] [address] [place] [address] Dr. Sailaja Barillas Glucose Ql (U) Negative Normal NEGATIVE [facility] Comment on above: Performed By: #### E RUR #### [facility] [address] [address] [address] Sailaja Barillas Hemoglobin Ql (U) Negative Normal NEGATIVE [facility] Comment on above: Performed By: #### E RUR #### [facility] [address] [place] [address] Dr. Sailaja Barillas Ketones Ql (U) Negative Normal NEGATIVE [facility] Comment on above: Performed By: #### E RUR #### [facility] [address] [place] [address] Dr. Sailaja Barillas LEUKOCYTES Negative Normal NEGATIVE [facility] Comment on above: Performed By: #### E RUR #### [facility] [address] [place] [address] Dr. Sailaja Barillas Nitrite Ql (U) Negative Normal NEGATIVE [facility] Comment on above: Performed By: #### E RUR #### [facility] [address] [place] [address] Dr. Sailaja Barillas pH (U) 7.0 [pH] Normal 5-9 [facility] Comment on above: Performed By: #### E RUR #### [facility] [address] [place] [address] Dr. Sailaja Barillas SPEC GRAVITY 1.015 Normal 1.005-<=1.025 [facility] Comment on above: Performed By: #### E RUR #### [facility] [address] [place] [address] Dr. Sailaja Barillas UA PROTEIN Negative Normal NEGATIVE/ TRACE [facility] Comment on above: Performed By: #### E RUR #### [facility] [address] [place] [address] Dr. Sailaja Barillas UR MICRO IND NOT INDICATED Normal [facility] Comment on above: Performed By: #### E RUR #### [facility] [address] [place] [address] Dr. Sailaja Barillas Urobilinogen Qn (U) 0.2 {Gael'U}/dL Normal 0.2 - 1.0 [facility] Comment on above: Performed By: #### E RUR #### [facility] [address] [place] [address] Dr. Sailaja Barillas CBC AUTO DIFFon 03-20-2022 BASO # 0.1 103/ul Normal 0.0-0.1 [facility] Comment on above: Performed By: #### C BC #### [facility] [address] [place] [address] Dr. Sailaja Barillas Basophils/100 WBC (Bld) 0.7 % Normal 0.2-2.0 [facility] Comment on above: Performed By: #### C BC #### [facility] [address] [place] [address] Dr. Sailaja Barillas EO # 0.1 103/ul Normal 0.0-0.7 [facility] Comment on above: Performed By: #### C BC #### [facility] [address] [place] [address] Dr. Sailaja Barillas Eosinophils/100 WBC (Bld) 0.9 % Normal 0.9-7.0 [facility] Comment on above: Performed By: #### C BC #### [facility] [address] [place] [address] Dr. Sailaja Barillas Erythrocyte distribution width (RBC) [Ratio] 12.9 % Normal 11.0-15.0 [facility] Comment on above: Performed By: #### C BC #### [facility] [address] [place] [address] Dr. Sailaja Barillas Hematocrit (Bld) [Volume fraction] 39.4 % Critically low 42.0-54.0 [facility] Comment on above: Performed By: #### C BC #### [facility] [address] [place] [address] Dr. Sailaja Barillas Hemoglobin (Bld) [Mass/Vol] 13.5 g/dL Critically low 14.0-18.0 [facility] Comment on above: Performed By: #### C BC #### [facility] [address] [place] [address] Dr. Sailaja Barillas IG # 0.03 10e3/ul Normal 0.00-0.03 [facility] Comment on above: Performed By: #### C BC #### [facility] [address] [place] [address] Dr. Sailaja Barillas IG % 0.3 % Normal 0.0-0.5 [facility] Comment on above: Performed By: #### C BC #### [facility] [address] [place] [address] Dr. Sailaja Barillas LYMPH # 2.6 103/ul Normal 1.2-3.8 [facility] Comment on above: Performed By: #### C BC #### [facility] [address] [place] [address] Dr. Sailaja Barillas Lymphocytes/100 WBC (Bld) 29.4 % Normal 20.5-60.0 [facility] Comment on above: Performed By: #### C BC #### [facility] [address] [place] [address] Dr. Sailaja Barillas MANUAL DIFF REQ NO Normal [facility] Comment on above: Performed By: #### C BC #### [facility] [address] [place] [address] Dr. Sailaja Barillas MCH (RBC) [Entitic mass] 30.4 pg Normal 25.9-34.0 [facility] Comment on above: Performed By: #### C BC #### [facility] [address] [place] [address] Dr. Sailaja Barillas MCHC (RBC) [Mass/Vol] 34.3 g/dL Normal 29.9-35.2 [facility] Comment on above: Performed By: #### C BC #### [facility] [address] [place] [address] Dr. Sailaja Barillas MCV (RBC) [Entitic vol] 88.7 fL Normal 80.0-94.0 [facility] Comment on above: Performed By: #### C BC #### [facility] [address] [place] [address] Dr. Sailaja Barillas MONO # 0.7 103/ul Normal 0.3-0.8 [facility] Comment on above: Performed By: #### C BC #### [facility] [address] [place] [address] Dr. Sailaja Barillas Monocytes/100 WBC (Bld) 8.4 % Normal 1.7-12.0 [facility] Comment on above: Performed By: #### C BC #### [facility] [address] [place] [address] Dr. Sailaja Barillas NEUT # 5.3 103/ul Normal 1.4-6.5 [facility] Comment on above: Performed By: #### C BC #### [facility] [address] [place] [address] Dr. Sailaja Barillas Neutrophils/100 WBC (Bld) 60.3 % Normal 43.0-75.0 [facility] Comment on above: Performed By: #### C BC #### [facility] [address] [place] [address] Dr. Sailaja Barillas Platelet mean volume (Bld) [Entitic vol] 9.6 fL Normal 9.5-13.5 [facility] Comment on above: Performed By: #### C BC #### [facility] [address] [place] [address] Dr. Sailaja Barillas PLT 242 103/ul Normal 150-450 [facility] Comment on above: Performed By: #### C BC #### [facility] [address] [place] [address] Dr. Sailaja Barillas RBC 4.44 106/ul Critically low 4.70-6.10 [facility] Comment on above: Performed By: #### C BC #### [facility] [address] [place] [address] Dr. Sailaja Barillas WBC 8.8 103/ul Normal 4.0-11.0 [facility] Comment on above: Performed By: #### C BC #### [facility] [address] [place] [address] Dr. Sailaja Barillas ER URINE PROFILEon 2 Bilirubin Ql (U) Negative Normal NEGATIVE [facility] Comment on above: Performed By: #### E RUR #### [facility] [address] [place] [address] Dr. Sailaja Barlilas Clarity (U) CLEAR Normal CLEAR [facility] Comment on above: Performed By: #### E RUR #### [facility] [address] [place] [address] Dr. Sailaja Barillas Color (U) YELLOW Normal YELLOW [facility] Comment on above: Performed By: #### E RUR #### [facility] [address] [place] [address] Dr. Sailaja SWANSON A micrscopic examination will be performed if indicated. Normal [facility] Comment on above: Performed By: #### E RUR #### [facility] [address] [place] [address] Dr. Sailaja Barillas Glucose Ql (U) Negative Normal NEGATIVE [facility] Comment on above: Performed By: #### E RUR #### [facility] [address] [place] [address] Dr. Sailaja Barillas Hemoglobin Ql (U) Negative Normal NEGATIVE [facility] Comment on above: Performed By: #### E RUR #### [facility] [address] [place] [address] Dr. Sailaja Barillas Ketones Ql (U) Negative Normal NEGATIVE [facility] Comment on above: Performed By: #### E RUR #### [facility] [address] [place] [address] Dr. Sailaja Barillas LEUKOCYTES Negative Normal NEGATIVE [facility] Comment on above: Performed By: #### E RUR #### [facility] [address] [place] [address] Dr. Sailaja Barillas Nitrite Ql (U) Negative Normal NEGATIVE [facility] Comment on above: Performed By: #### E RUR #### [facility] [address] [place] [address] Dr. Sailaja Barillas pH (U) 5.5 [pH] Normal 5-9 [facility] Comment on above: Performed By: #### E RUR #### [facility] [address] [place] [address] Dr. Sailaja Barillas SPEC GRAVITY 1.025 Normal 1.005-<=1.025 [facility] Comment on above: Performed By: #### E RUR #### [facility] [address] [place] [address] Dr. Sailaja Barillas UA PROTEIN Negative Normal NEGATIVE/ TRACE [facility] Comment on above: Performed By: #### E RUR #### [facility] [address] [place] [address] Dr. Sailaja Barillas UR MICRO IND NOT INDICATED Normal [facility] Comment on above: Performed By: #### E RUR #### [facility] [address] [address] [address] Sailaja Barillas Urobilinogen Qn (U) 0.2 {Gael'U}/dL Normal 0.2 - 1.0 [facility] Comment on above: Performed By: #### E RUR #### [facility] [address] [address] [address] Sailaja Barillas PROF CHEM 8 (BAS METB)on Anion gap [Moles/Vol] 11.1 mmol/L Normal [facility] Comment on above: Performed By: #### B MP #### [facility] [address] [place] [address] Dr. Sailaja Barillas Calcium [Mass/Vol] 8.5 mg/dL Normal 8.5-10.1 [facility] Comment on above: Performed By: #### B MP #### [facility] [address] [place] [address] Dr. Sailaja Barillas Chloride [Moles/Vol] 106 mmol/L Normal 98-107 [facility] Comment on above: Performed By: #### B MP #### [facility] [address] [place] [address] Dr. Sailaja Barillas CO2 [Moles/Vol] 26.8 mmol/L Normal 21.0-32.0 [facility] Comment on above: Performed By: #### B MP #### [facility] [address] [place] [address] Dr. Sailaja Barillas Creatinine [Mass/Vol] 0.97 mg/dL Normal 0.70-1.30 [facility] Comment on above: Performed By: #### B MP #### [facility] [address] [place] [address] Dr. Sailaja Barillas EGFR-AF SAMMARINESE >60 Normal >=60 [facility] Comment on above: Performed By: #### B MP #### [facility] [address] [place] [address] Dr. Sailaja Barillas EGFR-NON AF SAMMARINESE >60 Normal >=60 [facility] Comment on above: Performed By: #### B MP #### [facility] [address] [address] [address] Sailaja Barillas Glucose [Mass/Vol] 102 mg/dL Normal 74-106 [facility] Comment on above: Performed By: #### B MP #### [facility] [address] [address] [address] Sailaja Barillas Potassium [Moles/Vol] 3.9 mmol/L Normal 3.5-5.1 [facility] Comment on above: Performed By: #### B MP #### [facility] [address] [address] [address] Sailaja Barillas Sodium [Moles/Vol] 140 mmol/L Normal 136-145 [facility] Comment on above: Performed By: #### B MP #### [facility] [address] [address] [address] Sailaja Barillas Urea nitrogen [Mass/Vol] 10.0 mg/dL Normal 7.0-18.0 [facility] Comment on above: Performed By: #### B MP #### [facility] [address] [address] [address] Sailaja Barillas Urea nitrogen/Creatinin e [Mass ratio] 10.3 mg/mg Normal [facility] Comment on above: Performed By: #### B MP #### [facility] [address] [address] [address] Sailaja Barillas US SCROTUM W VASCULAR ORGANo n 03-20-2022 US SCROTUM W VASCULAR ORGAN EXAM: US SCROTUM W VASCULAR ORGAN HISTORY: Postoperative pain COMPARISON: None. TECHNIQUE: Alan scale imaging as well as color and duplex Doppler ultrasound examination of the scrotum and its contents were performed. FINDINGS: The testes are normal in size and echotexture without focal abnormality. The right testicle per boat assembler although appears slightly more proximal within [...] by: LILA JEFFREY Date: 2022-03-20 18:55 Normal [facility] XR KNEE RT 4V or >on [...] by: SANIYA MATOS Date: 2022-03-01 13:40 Normal [facility] Vital Signs Date Time Vital Sign Value Performing Clinician Facility 09-26-2024 08:00-0500 Body height 177.8 cm Silvia Torresdarrian CASTELLANOSMagoosh Work Phone: [facility] 09-26-2024 08:00-0500 Body mass index (BMI) [Ratio] 36.01 kg/m2 Silvia Eastondarrian CASTELLANOSMagoosh Work Phone: [facility] 09-26-2024 08:00-0500 Body temperature 97.81 [degF] Silvia Easton CHAIN PEGGERMagoosh Work Phone: [facility] 09-26-2024 08:00-0500 Body weight 113.85 kg Silvia Easton CHAIN PEGGERMagoosh Work Phone: [facility] 09-26-2024 08:00-0500 Diastolic blood pressure 70 mm[Hg] Silvia Easton CHAIN PEGGERMagoosh Work Phone: [facility] 09-26-2024 08:00-0500 Heart rate 70 /min Silvia Easton APRN-CHEESE SPRAYER Work Phone: [facility] 09-26-2024 08:00-0500 Respiratory rate 18 /min Silvia Easton CHAIN PEGGER-CHEESE SPRAYER Work Phone: [facility] 09-26-2024 08:00-0500 SaO2% (BldA) [Mass fraction] 99 % Silvia Easton APRN-CHEESE SPRAYER Work Phone: [facility] 09-26-2024 08:00-0500 Systolic blood pressure 120 mm[Hg] Silvia Easton CHAIN PEGGER-CHEESE SPRAYER Work Phone: [facility] 09-07-2024 16:42-0500 Body height 177.8 cm Silvia Easton APRN-CHEESE SPRAYER Work Phone: [facility] 09-07-2024 16:42-0500 Body mass index (BMI) [Ratio] 34.52 kg/m2 Silvia Easton APRN-CHEESE SPRAYER Work Phone: [facility] 09-07-2024 16:42-0500 Body temperature 97.7 [degF] Silvia Easton APRN-CHEESE SPRAYER Work Phone: [facility] 09-07-2024 16:42-0500 Body weight 109.14 kg Silvia Easton APRN-CHEESE SPRAYER Work Phone: [facility] 09-07-2024 16:42-0500 Diastolic blood pressure 80 mm[Hg] Silvia Easton CHAIN PEGGER-CHEESE SPRAYER Work Phone: [facility] 09-07-2024 16:42-0500 Heart rate 68 /min Silvia Easton APRN-CHEESE SPRAYER Work Phone: [facility] 09-07-2024 16:42-0500 Respiratory rate 20 /min Silvia Easton CHAIN PEGGER-CHEESE SPRAYER Work Phone: [facility] 09-07-2024 16:42-0500 SaO2% (BldA) [Mass fraction] 98 % Silvia Torresillo CHAIN PEGGER-CHEESE SPRAYER Work Phone: [facility] 09-07-2024 16:42-0500 Systolic blood pressure 110 mm[Hg] Silvia Torresillo CHAIN PEGGER-CHEESE SPRAYER Work Phone: [facility] 03-29-2024 09:08-0400 Body height 177.[address] [facility] 03-29-2024 09:08-0400 Body mass index (BMI) [Ratio] 36.3 kg/m2 PHYSICIAN NO [facility] 03-29-2024 09:08-0400 Body temperature 97.7 [degF] PHYSICIAN NO [facility] 03-29-2024 09:08-0400 Body weight 114.[address] [facility] 03-29-2024 09:08-0400 Diastolic blood pressure 82 mm[Hg] PHYSICIAN NO [facility] 03-29-2024 09:08-0400 Heart rate 79 /min PHYSICIAN NO [facility] 03-29-2024 09:08-0400 Respiratory rate 18 /min PHYSICIAN NO [facility] 03-29-2024 09:08-0400 SaO2% (BldA) [Mass fraction] 98 % PHYSICIAN NO [facility] 03-29-2024 09:08-0400 Systolic blood pressure 119 mm[Hg] PHYSICIAN NO [facility] 08-18-2023 10:56-0500 Body height 177.8 cm Silviahola Easton CHAIN PEGGER-CHEESE SPRAYER Work Phone: [facility] 08-18-2023 10:56-0500 Body mass index (BMI) [Ratio] 38.48 kg/m2 Silviamichelle Torresillo CHAIN PEGGER-CHEESE SPRAYER Work Phone: [facility] 08-18-2023 10:56-0500 Body temperature 97.81 [degF] Silvia Easton CHAIN PEGGER-CHEESE SPRAYER Work Phone: [facility] 08-18-2023 10:56-0500 Body weight 121.66 kg Silvia Easton APRN-CHEESE SPRAYER [facility] 08-18-2023 10:56-0500 Diastolic blood pressure 78 mm[Hg] Silvia Easton APRN-CHEESE SPRAYER Work Phone: [facility] 08-18-2023 10:56-0500 Heart rate 83 /min Silvia Easton APRN-CHEESE SPRAYER Work Phone: [facility] 08-18-2023 10:56-0500 SaO2% (BldA) [Mass fraction] 93 % Silvia Easton APRN-CHEESE SPRAYER [facility] 08-18-2023 10:56-0500 Systolic blood pressure 120 mm[Hg] Silvia Easton APRN-CHEESE SPRAYER [facility] 02-16-2023 15:15-0400 Body height 177.8 cm Melody Smith Other [employer] Other 02-16-2023 15:15-0400 Body mass index (BMI) [Ratio] 34.15 kg/m2 Melody Smith Other [employer] Other 02-16-2023 15:15-0400 Body weight 107.96 kg Melody Smith Other [employer] Other 04-04-2022 10:10-0400 Respiratory rate 16 /min Keegan MIRZA [facility] 03-18-2022 13:34-0400 Blood Pressure Location Keegan MIRZA [facility] 03-18-2022 13:34-0400 Diastolic blood pressure 99 mm[Hg] Keegan MIRZA [facility] [place] 03-18-2022 13:34-0400 Heart rate 83 /min Keegan MIRZA [facility] 03-18-2022 13:34-0400 Systolic blood pressure 158 mm[Hg] Keegan MIRZA [facility] Encounters Encounter Date Encounter Type Care Provider Facility Start: 09-26-2024 End: 09-26-2024 Office outpatient visit 15 minutes Silvia Easton CHAIN PEGGER-CHEESE SPRAYER [facility] Comment on above: Left knee pain, unsp ecified chronicity (Primary Dx); Lumbar back pain with radiculopathy affecting left lower extremity Start: 09-26-2024 End: 09-26-2024 ambulatory [facility] Start: 09-12-2024 End: 09-13-2024 Telephone encounter Marjorie [facility] Start: 09-07-2024 End: 09-07-2024 Office outpatient visit 15 minutes Silvia Easton CHAIN PEGGER-CHEESE SPRAYER Work Phone: [facility] Comment on above: Lumbar back pain wit h radiculopathy affecting left lower extremity (Primary Dx); Acute pain of left knee Start: 09-07-2024 End: 09-07-2024 ambulatory [facility] Start: 06-03-2024 ambulatory Girma Cardoso acility:[facility] Start: 05-22-2024 End: 05-22-2024 Emergency department patient visit [facility] Start: 03-29-2024 End: 03-29-2024 ambulatory PHYSICIAN NO FAMILY [facility] Work Phone: Start: 03-29-2024 End: 03-29-2024 Patient encounter procedure PHYSICIAN NO [facility] Work Phone: Start: 02-18-2024 Registered Recurring PHYSICIAN NO [facility] Start: 12-31-2023 Non-patient / Non-visit PHYSICIAN NO [facility] Work Phone: Start: 08-18-2023 End: 08-18-2023 Office outpatient visit 15 minutes Silvia Easton CHAIN PEGGER-CHEESE SPRAYER Work Phone: [facility] Comment on above: Filiform wart (Prima ry Dx); Bipolar disorder, current episode manic without psychotic features, severe ([facility]) Start: 08-03-2023 Telephone encounter Tammie Kennedy MA [facility] Start: 05-27-2023 End: 05-27-2023 ambulatory Hazel Harden Other [employer] Other Start: 05-27-2023 Office outpatient ne w 45 minutes Hazel Harden [facility] Start: 05-14-2023 End: 05-14-2023 ambulatory PHYSICIAN NO [facility] Work Phone: Start: 05-14-2023 End: 05-14-2023 Patient encounter procedure PHYSICIAN NO [facility] [address] Work Phone: Start: 03-10-2023 End: 03-10-2023 ambulatory Melody Smith Other [employer] Other Start: 03-10-2023 Office outpatient vi sit 15 minutes Melody Smith [facility] Start: 02-16-2023 End: 02-16-2023 Patient encounter procedure PHYSICIAN NO [facility] Start: 02-16-2023 End: 02-16-2023 ambulatory Melody Smith Other [employer] Other Start: 02-16-2023 Office outpatient ne w 30 minutes Melody Smith [facility] Start: 04-08-2022 ambulatory Facility:[facility] Start: 04-04-2022 End: 04-04-2022 Patient encounter procedure Keegan MIRZA [facility] Start: 03-31-2022 End: 03-31-2022 ambulatory EMELY HONEYCUTT Facility:[facility] Start: 03-20-2022 End: 03-20-[address] NONE LISTED REQUEST Facility: Start: 03-18-2022 End: 03-18-2022 Lab Drop off Keegan MIRZA [facility] Start: 03-18-2022 End: 03-18-2022 Patient encounter procedure Keegan MIRZA [facility] Start: 03-01-2022 End: 03-01-[address] NONE LISTED REQUEST Facility: Procedures Date Procedure Procedure Detail Performing Clinician Start: 09-26-2024 Follow-up visit Follow-up SILVIA EASTON Start: 09-07-2024 Adult depression screening assessment Silvia Easton CHAIN PEGGER-CHEESE SPRAYER Work Phone: Start: 08-18-2023 Adult depression screening assessment Silvia Easton CHAIN PEGGER-CHEESE SPRAYER Work Phone: Start: 07-14-2023 Adult depression screening assessment Tammie Love CMA Start: 02-16-2023 Plain X-ray of left hand PHYSICIAN NO FAMILY Start: 04-04-2022 H/O: vasectomy Keegan MIRZA Start: 03-18-2022 Vasectomy Keegan ZUNIGA Plan of Treatment Date Care Activity Detail Author Start: 05-12-2028 DTaP,Tdap and Td Vaccines (8 - Td or Tdap) DTaP,Tdap and Td Vaccines (8 - Td or Tdap) [facility] Start: 09-26-2025 Adult BMI Screening Adult BMI Screen ing [facility] Start: 09-26-2025 Tobacco Screening Tobacco Screening [facility] Start: 09-08-2025 Tobacco Screening Tobacco Screening [facility] Start: 09-07-2025 Adult BMI Follow Up Plan Adult BMI Follow Up Plan [facility] Start: 09-07-2025 Adult BMI Screening Adult BMI Screen ing [facility] Start: 09-07-2025 Depression Screening Depression Scre ening [facility] Start: 09-07-2025 Tobacco Screening Tobacco Screening [facility] Start: 09-26-2024 End: 09-26-2024 Patient encounter procedure 09/26/2024 8:00 AM EST Office Visit [facility] [address] [place] [address] Silvia Easton, CHAIN PEGGER-CHEESE SPRAYER [address] [place] [address] [facility] Start: 09-07-2024 End: 09-07-2025 XR Knee - left 3 Views X-ray knee left 3 views Imaging Routine Acute pain of left knee Expected: 09/07/2024, Expires: 09/07/2025 [facility] Work Phone: Comment on above: Expected: 09/07/2024 , Expires: 09/07/2025 Start: 08-18-2024 Adult BMI Follow Up Plan Adult BMI Follow Up Plan [facility] Start: 08-18-2024 Adult BMI Screening Adult BMI Screen ing [facility] Start: 08-18-2024 Depression Screening Depression Scre ening [facility] Start: 08-18-2024 Tobacco Screening Tobacco Screening [facility] Start: 07-14-2024 Adult BMI Follow Up Plan Adult BMI Follow Up Plan [facility] Start: 07-14-2024 Depression Screening Depression Scre ening [facility] Start: 07-14-2024 Tobacco Screening Tobacco Screening [facility] Start: 06-09-2024 Adult BMI Screening Adult BMI Screen ing [facility] Start: 03-27-2024 COVID-19 Vaccine ( season) COVID-19 Vaccine ( season) [facility] Start: 03-27-2024 Influenza vaccination Influenza Vacc ine [facility] Start: 08-18-2023 End: 08-18-2023 Patient encounter procedure 08/18/2023 11:00 AM EST [facility] [address] [place] [address] Silvia Easton, CHAIN PEGGER-CHEESE SPRAYER [address] [place] [id number] [facility] Start: 05-14-2023 MRI of left hand MR hand LT wo con F [facility] Start: 03-27-2023 COVID-19 Vaccine ( season) COVID-19 Vaccine ( season) [facility] Start: 03-27-2023 Influenza vaccination Influenza Vacc ine [facility] Immunizations Immunization Date Immunization Notes Care Provider Fa cility 02-28-2021 COVID-19 Vaccine, vector-nr, rS-Ad26, PF, 0.5mL Tammie Love [facility] 02-24-2021 SARS-CoV-2 (COVID-19 ) Ad26 vaccine, recombinant Keegan MIRZA [facility] 06-14-2020 Influenza, injectabl e, Madin Mirian Canine Kidney, preservative free, quadrivalent Tammie Love [facility] 06-14-2020 pneumococcal polysaccharide vaccine, 23 valent [facility] 06-14-2020 influenza virus vaccine, unspecified formulation [facility] 05-12-2018 influenza, injectabl e, quadrivalent, preservative free [facility] 05-12-2018 tetanus toxoid, redu mey diphtheria toxoid, and acellular pertussis vaccine, adsorbed [facility] 01-05-2002 hepatitis B vaccine, pediatric or pediatric/adolescent dosage [facility] 04-23-2000 hepatitis B vaccine, pediatric or pediatric/adolescent dosage [facility] 02-20-2000 hepatitis B vaccine, pediatric or pediatric/adolescent dosage [facility] 02-20-2000 tetanus and diphther ia toxoids, adsorbed, preservative free, for adult use (2 Lf of tetanus toxoid and 2 Lf of diphtheria toxoid) [facility] 01-21-2000 hepatitis B vaccine, pediatric or pediatric/adolescent dosage [facility] 05-17-1993 measles, mumps and rubella virus vaccine [facility] 09-15-1990 diphtheria, tetanus toxoids and pertussis vaccine [facility] 09-15-1990 haemophilus influenz ae type b vaccine, conjugate unspecified formulation [facility] 09-15-1990 trivalent poliovirus vaccine, live, oral [facility] 01-31-1987 diphtheria, tetanus toxoids and pertussis vaccine [facility] 01-31-1987 measles, mumps and rubella virus vaccine [facility] 01-31-1987 trivalent poliovirus vaccine, live, oral [facility] 05-17-1986 diphtheria, tetanus toxoids and pertussis vaccine [facility] 03-15-1986 diphtheria, tetanus toxoids and pertussis vaccine [facility] 03-15-1986 trivalent poliovirus vaccine, live, oral [facility] 01-11-1986 diphtheria, tetanus toxoids and pertussis vaccine Tammie Love [facility] 01-11-1986 trivalent poliovirus vaccine, live, oral Tammie Love [facility] NEGATED: Highlighted row has not occurred!02-10-2022 SARS-CoV-2 mRNA (tozinameran 5y-11y) vaccine Keegan MIRZA [facility] [place] Payers Date Payer Category Payer [employer] - Other [place] [id number] 2023 Unknown [id number] 2023 Self-pay 2022 Unknown ZAN WOODRUFF (PPO) [id number] 2022-Present [phone] [address] [place] [address] [id number] 1985 Unknown [id number] 1985 Unknown [id number] 1985 Unknown [id number] 1985 Unknown [id number] 1985 Unknown [id number] 1985 Unknown [id number] 1959 Unknown [id number] 1959 Unknown [id number] 1959 Unknown [id number] [facility] [id number] Unknown [id number] Social History Date Type Detail Facility Start: 03-18-2022 Tobacco smoking status Light t obacco smoker (finding) [facility] [employer] Tobacco smoking status Smoker (finding) [facility] [employer] Start: 09-05-2020 End: 09-26-2020 Sex Assigned At Male [facility] Start: 04-04-2022 End: 05-07-2023 Tobacco smoking status Ex-smoker (finding) [facility] Start: 1985 Sex Assigned At Male F [facility] History of tobacco use Cigarette Smoker P [facility] Start: 05-07-2023 Tobacco use and exposure Smoke less tobacco non-user [facility] Start: 07-14-2023 End: 09-26-2024 Alcohol intake Ex-drinker (finding) [facility] Start: 09-05-2020 End: 09-26-2020 History of Social function [facility] Frequency of Alcohol Consumption Never [facility] Start: 1985 [facility] Start: 02-27-2015 Sex Male (finding) [facility] Functional Status Date Assessment Result Facility 04-04-2022 Functional Status N/A [facility] 03-18-2022 Functional Status N/A [facility] Clinical Notes 03-18-2022 to 09-26-2024 Silvia Easton, CHAIN PEGGER-CHEESE SPRAYER - 09/26/2024 8:00 AM ESTTelephone Encounter - Marjorie Bower, NELLY - 09/12/2024 4:51 PM ESTTelephone Encounter - Florence Anntony - 09/12/2024 4:51 PM EST Note Date & Type Note Facility 09-26-2024 History of Presen t illness Narrative Images from the original note were not included. [address] [place] [address] SUBJECTIVE: Patient ID: Lele Norwood is a 38 y.o. male. Chief Complaint Patient presents with Follow-up Back pain States his back pain has significantly improved. He felt the tizanidine was helpful for the muscle spasms. He is no longer feeling radicular symptoms down his left leg. He is although feeling aches and weakness of left knee. States is difficult to describe sensation, states weakness . Most noticeable after long day of work. Had xray done of knee, negative findings. Knee Pain The injury mechanism was a fall. The pain is present in the left thigh and left knee. The quality of the pain is described as aching. The pain is at a severity of 3/10. The pain is moderate. The pain has been Fluctuating since onset. Pertinent negatives include no inability to bear weight, loss of motion, loss of sensation, muscle weakness, numbness or tingling. He reports no foreign bodies present. The symptoms are aggravated by movement and palpation. He has tried NSAIDs and rest for the symptoms. The treatment provided mild relief. The following portions of the patient's history [...] 05/12/2018 REVIEW OF SYSTEMS: Review of Systems HENT: Negative for hearing loss and trouble swallowing. Eyes: Negative for pain and visual disturbance. Respiratory: Negative for chest tightness and shortness of breath. Cardiovascular: Negative for palpitations and leg swelling. Gastrointestinal: Negative for blood in stool. Endocrine: Negative for polydipsia, polyphagia and polyuria. Genitourinary: Negative for difficulty urinating, dysuria, flank pain, hematuria, scrotal swelling and testicular pain. Musculoskeletal: Positive for arthralgias. Left knee Skin: Negative. Allergic/Immunologic: Negative. Neurological: Negative for seizures and syncope. Hematological: Does not bruise/bleed easily. Psychiatric/Behavioral: Negative. PHYSICAL EXAMINATION: Vitals: 09/26/24 0800 BP: 120/70 BP Site: Left Arm BP Postition: Sitting Pulse: 70 Resp: 18 Temp: 36.6 C (97.8 F) TempSrc: Oral SpO2: 99% Weight: 113.9 kg (251 lb) Height: 177.8 cm (5' 10 ) Patient [...] Hernia: No hernia is present. Musculoskeletal: General: Tenderness present. Normal range of motion. Cervical back: Normal range of motion and neck supple. Right knee: Normal. Left knee: Bony tenderness present. Tenderness present over the medial joint line and lateral joint line. Legs: Lymphadenopathy: Cervical: No cervical adenopathy. Skin: General: Skin is warm and dry. Capillary Refill: Capillary refill takes less than 2 seconds. Findings: No rash. Neurological: Mental Status: He is alert and oriented to person, place, and time. Deep Tendon Reflexes: Reflexes are normal and symmetric. Psychiatric: Mood and Affect: Mood normal. Behavior: Behavior normal. Thought Content: Thought content normal. Judgment: Judgment normal. ASSESSMENT/PLAN: Lele was seen today for follow-up. Diagnoses and all orders for this visit: Left knee pain, unspecified chronicity Lumbar back pain with radiculopathy affecting left lower extremity - tiZANidine (ZANAFLEX) 2 mg tablet; Take 1 tablet (2 mg total) by mouth every 8 (eight) hours as needed for muscle spasms. Discussed wearing knee immobilizer to left knee. States he has one at home but has not tried wearing it. Reorder tizanidine. May continue Motrin 800 mg every 8 hours prn pain We did discuss orthopedic referral for further evaluation of knee. He would like to consider this. If he chooses, will call the office. Body mass index is 36.01 kg/m . Patient noted to have elevated BMI and the following intervention(s) were applied: Discussed current weight today. Consider healthy food choices, portion control. Avoid sugary beverages and high concentrated sweets. Routine exercise regimen encouraged. ALL QUESTIONS ANSWERED Total time spent was 25 minutes: Preparing to see the patient (e.g., review of tests) Obtaining and/or reviewing separately obtained history Performing a medically appropriate examination and/or evaluation Counseling and educating the patient/family/caregiver Ordering medications, tests, or procedures Follow-up: Next scheduled Sooner if needed LUCA Steele 09/26/24 0825 documented in this encounter [facility] 09-12-2024 Miscellaneous Notes Formattin g of this note might be different from the original. ----- Message from LUCA Altman sent at 09/12/2024 3:26 PM EST ----- Reviewed. Inform patient left knee xray is normal. No acute process seen. Patient notified documented in this encounter [facility] 09-12-2024 Telephone encount er Note ----- Message from LUCA Altman sent at 09/12/2024 3:26 PM EST ----- Reviewed. Inform patient left knee xray is normal. No acute process seen. [facility] [place] [facility] 09-12-2024 Telephone encount er Note Patient notified [facility] 09-07-2024 History of Presen t illness Narrative Images from the original note were not included. [address] [facility] [id number] SUBJECTIVE: Patient ID: Lele Norwood is a 38 y.o. male. Chief Complaint Patient presents with sciatica Presents today with complaints of left sided lower back pain and left knee pain. States he feel down his stairs several weeks ago. Went to [facility] for treatment. Was prescribed muscle relaxer, Motrin, and Prednisone taper. It did help but pain has returned. Xrays were done at ER. Lumbar back and left hip xrays normal. Patient states his left knee was not xray but states his knee did not hurt when he was in the ER. Back Pain This is a new problem. The current episode started more than 1 month ago. The problem occurs daily. The problem has been waxing and waning since onset. The pain is present in the lumbar spine and sacro-iliac. The quality of the pain is described as aching. The pain radiates to the left knee and left thigh. The pain is at a severity of 5/10. The pain is moderate. The pain is The same all the time. The symptoms are aggravated by lying down, position, sitting, standing and twisting. Associated symptoms include leg pain and weakness. Pertinent negatives include no abdominal pain, bladder incontinence, bowel incontinence, chest pain, dysuria, fever, headaches, numbness, paresis, paresthesias, pelvic pain, perianal numbness, tingling or weight loss. Risk factors include recent trauma. He has tried ice, muscle relaxant, NSAIDs, walking, home exercises and heat for the symptoms. The treatment provided moderate relief. Knee Pain The incident occurred more than 1 week ago. The incident occurred at home (Fell down stairs). The injury mechanism was a fall. The pain is present in the left thigh and left knee. The quality of the pain is described as aching. The pain is at a severity of 5/10. The pain is moderate. The pain has been Fluctuating since onset. Pertinent negatives include no inability to bear weight, loss of motion, loss of sensation, muscle weakness, numbness or tingling. He reports no foreign bodies present. The symptoms are aggravated by movement and palpation. He has tried NSAIDs and rest for the symptoms. The treatment provided mild relief. The following portions of the patient's history were reviewed and updated as appropriate: allergies, current medications, past family history, past medical history, past social history, past surgical history and problem list. Past Surgical History: Procedure Laterality Date VASECTOMY Past Medical History: Diagnosis Date Affective bipolar disorder ([facility]) Anxiety Depression Hemorrhoids Shortness of breath Immunization [...] Review of Systems Constitutional: Negative for chills, fatigue, fever and weight loss. HENT: Negative for hearing loss and trouble swallowing. Eyes: Negative for pain and visual disturbance. Respiratory: Negative for cough, chest tightness and shortness of breath. Cardiovascular: Negative for chest pain, palpitations and leg swelling. Gastrointestinal: Negative for abdominal pain, blood in stool and bowel incontinence. Endocrine: Negative for polydipsia, polyphagia and polyuria. Genitourinary: Negative for bladder incontinence, difficulty urinating, dysuria, flank pain, hematuria, pelvic pain, scrotal swelling and testicular pain. Musculoskeletal: Positive for back pain. Left knee pain Skin: Negative. Allergic/Immunologic: Negative. Neurological: Positive for weakness. Negative for tingling, seizures, syncope, numbness, headaches and paresthesias. Hematological: Does not bruise/bleed easily. Psychiatric/Behavioral: Negative. PHYSICAL EXAMINATION: Vitals: 09/07/24 1642 BP: 110/80 BP Site: Left Arm BP Postition: Sitting Pulse: 68 Resp: 20 Temp: 36.5 C (97.7 F) TempSrc: Oral SpO2: 98% Weight: 109.1 kg (240 lb 9.6 oz) Height: 177.8 cm (5' 10 ) [...] Hernia: No hernia is present. Musculoskeletal: General: Normal range of motion. Cervical back: Normal range of motion and neck supple. Tenderness present. Back: Left knee: Bony tenderness present. No crepitus. Tenderness present. No LCL laxity, MCL laxity, ACL laxity or PCL laxity.Normal alignment, normal meniscus and normal patellar mobility. Normal pulse. Lymphadenopathy: Cervical: No cervical adenopathy. Skin: General: Skin is warm and dry. Capillary Refill: Capillary refill takes less than 2 seconds. Findings: No rash. Neurological: Mental Status: He is alert and oriented to person, place, and time. Deep Tendon Reflexes: Reflexes are normal and symmetric. Psychiatric: Mood and Affect: Mood normal. Behavior: Behavior normal. Thought Content: Thought content normal. Judgment: Judgment normal. ASSESSMENT/PLAN: Lele was seen today for sciatica. Diagnoses and all orders for this visit: Lumbar back pain with radiculopathy affecting left lower extremity - ibuprofen (MOTRIN) 800 mg tablet; Take 1 tablet (800 mg total) by mouth every 8 (eight) hours as needed for pain. - predniSONE (DELTASONE) 20 mg tablet; Take 1 tablet (20 mg total) by mouth See Admin Instructions. 1 tab 2x daily x3 days, 1 tab daily x3 days, 1/2 tablet daily x4 days - tiZANidine (ZANAFLEX) 2 mg tablet; Take 1 tablet (2 mg total) by mouth every 8 (eight) hours as needed for muscle spasms. Acute pain of left knee - ibuprofen (MOTRIN) 800 mg tablet; Take 1 tablet (800 mg total) by mouth every 8 (eight) hours as needed for pain. - X-ray knee left 3 views; Future - predniSONE (DELTASONE) 20 mg tablet; Take 1 tablet (20 mg total) by mouth See Admin Instructions. 1 tab 2x daily x3 days, 1 tab daily x3 days, 1/2 tablet daily x4 days Paraspinal tenderness of left lumbar region. States he has radicular symptoms which occasionally radiates to his left knee. He has full ROM -xray left knee Reviewed xrays, lumbar and left hip, done at [facility]. Both show no acute process. -Start Motrin 800 mg oral every 8 hours PRN pain -Prednisone 20 mg taper. - Return back in two weeks. If pain persist, consider pain management referral for further evaluation. Body mass index is 34.52 kg/m . Patient noted to have elevated BMI and the following intervention(s) were applied: Discussed current weight today. Consider healthy food choices, portion control. Avoid sugary beverages and high concentrated sweets. Routine exercise regimen encouraged. ALL QUESTIONS ANSWERED Total time spent was 25 minutes: Preparing to see the patient (e.g., review of tests) Obtaining and/or reviewing separately obtained history Performing a medically appropriate examination and/or evaluation Counseling and educating the patient/family/caregiver Ordering medications, tests, or procedures Follow-up: 2 weeks LUCA Steele 09/08/24 0944 documented in this encounter [facility] [place] 08-18-2023 History of Presen t illness Narrative Images from the original note were not included. [address] [place] [address] SUBJECTIVE: Patient ID: Lele Norwood is a 37 y.o. male. Chief Complaint Patient presents with Manic Behavior States his moods have stabilized. Feels he is doing well with updated medication regimen. Is now being monitored by psychiatry and counseling. Plays [email or web address] and noticed his playing has improved. Enjoys [...] Medical History: Diagnosis Date Affective bipolar disorder ([facility]) Anxiety Depression Hemorrhoids Shortness of breath Immunization [...] current episode manic without psychotic features, severe ([facility]) - ARIPiprazole (ABILIFY) 10 mg tablet; [...] Steele 08/18/23 1128 documented in this encounter [facility] 08-03-2023 Miscellaneous Notes Formattin g of this note might be different from the original. Patient states he needs a letter to give t child support stating he is unable to work so he does not go to penitentiary. Done documented in this encounter [facility] 08-03-2023 Telephone encount er Note Patient states he needs a letter to give t child support stating he is unable to work so he does not go to penitentiary. [facility] 08-03-2023 Telephone encount er Note Done [facility] [place] [facility] 05-27-2023 Evaluation note Encounter Date Diagnosis [...] Pain of left thumb (ICD-10 - M79.645) [facility] Other 08-15-2023 Evaluation note* Encounter Date Diagnosis Assessment Notes Treatment Notes Treatment Clinical Notes Feb, Sprain of metacarpophalangeal joint of left thumb, subsequent encounter (ICD-10 - S63.642D) As patient was unable to utlize the splint we provided, instructed on over the counter lower profile spica splint to allow rest to the joint while it recovers. Continue to avoid strenuous use of the thumb. [facility] Other 07-24-2023 Evaluation note* Encounter Date Diagnosis [...] appropriate use of splinting during healing period. [facility] Other 09-09-2022 Evaluation + Plan note Future Scheduled Tests Laboratory* Semen Analysis Post Vasectomy 04/04/22 * Semen Analysis Post Vasectomy 04/04/22 [facility] 09-09-2022 Hospital Discharge instructions Patient Education 04/04/2022 [...] 07/13/2006 Document Revised: 07/15/2018 Document Reviewed: 08/15/2017 [employer] Patient Education 2020 [employer]. Follow Up Care 02/25/2022 09:09:29 With:HERMES ESPOSITO, Keegan Ryder, URL Address: [address] [place], [place] [id number]- When: Unknown [facility] 08-23-2022 Hospital Discharge instructions Patient Education [...] Follow these instructions at home: Medicines Take [id number] and prescription medicines only as told by [...] 01/30/2006 Document Revised: 06/25/2018 Document Reviewed: 10/09/2017 [employer] Patient Education [place]. Follow Up Care 03/05/2022 11:43:44 With:Keegan MIRZA MD, URL Address: [facility] [address], [place] [phone] When: Unknown [facility] evaluation + Plan note Future Appointments Appointment Date:04/04/2022 09:45:00 AM Scheduled Provider:Keegan MIRZA MD Location:[facility] Appointment Type:URO Office Visit [facility] evaluation noteNo assessment information available [facility] Work Phone: evaluation note* Diagnosis Lumbar back pain with radiculopathy affecting left lower extremity- Primary Acute pain of left knee documented [facility] Diagnosis Filiform wart- Primary Bipolar disorder, current episode manic without psychotic features, severe (CMS-HCC) [facility] Diagnosis Left knee pain, unspecified chronicity- Primary Lumbar back pain with radiculopathy affecting left lower extremity [facility] N[facility]ative - Reported* Type Description Date Medical History anxiety Medical History depression Medical History gout Surgical History vasectomy 2021 [facility] Other Hospital course Narrative No data available for this section [facility] Hospital Discharge instructions No data available for this section [facility]Not on filedocumented in this encounter [facility]ructions* Attachments The following attachments cannot be sent through Care Everywhere. * Joint Pain ([place] Island[place]) [facility]* Attachments The following attachments cannot be sent through Care Everywhere. * Bipolar disorder ([place]) * Warts on the Skin ([place]) [facility] Attachments The following attachments cannot be sent through Care Everywhere. * Radiculopathy ([place] Island[place]) [facility] No data available for this section [facility] Reason for referral (narrative)* Consultation (Routine) - Pending Review Specialty Diagnoses / Procedures Referred By Maliha petersen Referred To Contact Dermatology Diagnoses Filiform brandont Silvia Easton APRN-CHEESE SPRAYER [address] [place] [address] Billie Jacobs MD [address] , [address] [address] Referral ID Status Reason Start Date Expiration Date Visits Requested Visits Authorized [id number] Pending Review Specialty Services Required 08/18/2023 08/17/2024 [facility] Purpose Family History No Family [...] and content) DATE CREATED AUTHOR 07/02/2022 [facility] DATE CREATED AUTHOR AUTHOR'S ORGANIZ ATION 05/14/2023 [facility] DATE CREATED AUTHOR AUTHOR'S ORGANIZ ATION 05/23/2024 [facility] DATE CREATED AUTHOR AUTHOR'S ORGANIZ ATION 06/04/2024 [facility] DATE CREATED AUTHOR AUTHOR'S ORGANIZ ATION 09/26/2024 [facility] REASON FOR VISIT (unrecogniz ed section and content) Reason Comments sciatica Reason Comments Manic Behavior Reason Comments Follow-up Back pain Care Teams (unrecognized sec tion and content) Dry Transfer Man Relationship Specialty Start Date End Date Silvia Easton, CHAIN PEGGER-CHEESE SPRAYER [address] [place] [address] PCP - General Family Medicine 05/07/23 Team [...] March 29, 2024 End: March 29, 2024 Team Status: Active Member Role Status Dates PHYSICIAN NO FAMILY Primary Care Provider Active Team Status: Inactive Member Role Status Dates Melody Smith NP-C Attending Provider Active Team Status: Inactive Member [...] BE BASED ON THE PRIMARY CLINICAL RECORDS. [employer] provides no warranty or guarantee of the accuracy or completeness of information in this document.
[2024-10-05 22:07] LABS: Influenza Virus A Antigen Negative; Influenza Virus B Antigen Negative; Internal Control Within Normal Limits; SARS-CoV-2 Ag NEGATIVE (NEGATIVE)
--- NOTE | 2024-10-06 00:31 | ED.GENADUL1 ---
HPI HPI - General Adult General Chief complaint: Upper Respiratory Infection Stated complaint: COUGH, RUNNY NOSE Time Seen by Provider: 10/05/24 21:48 Source: patient Mode of arrival: walk-in History of Present Illness HPI narrative: Mr. Norwood is a 39-year-old male presenting to the emergency department secondary to upper respiratory type symptoms. Patient has a sore throat, headache, ear fullness, cough, congestion in his chest. He is having difficulty sleeping. He states he does work nights and feels like when he slept during the day today he got profoundly worse. Onkb-pkb-hpovzut preparations are not helping him. He did not get the COVID or influenza vaccinations this year. Symptoms are moderate in severity. Sleeping appears to make it worse. Nothing makes it better no neck pain or stiffness. Patient's symptoms have been for 3 to 4 days. Initially he did have hot and cold flashes where he thought where he was feverish. Patient is currently eating and drinking okay. No nausea vomiting. No diarrhea or constipation. No known sick contacts or recent travel although his significant other does state that his family members have been ill. Related Data Home Medications ?Medication ?Instructions ?Recorded ?Confirmed bupropion HCl 300 mg 24 hr tablet, 300 mg PO DAILY 02/07/23 04/24/24 extended release (Wellbutrin XL) fluoxetine 10 mg capsule (Prozac) 10 mg PO DAILY 02/07/23 04/24/24 benztropine 0.5 mg tablet 0.5 mg PO 10/29/23 cariprazine 1.5 mg capsule 1.5 mg PO DAILY 10/29/23 04/24/24 (Vraylar) trazodone 50 mg tablet 150 mg PO .qhs 10/29/23 04/24/24 buspirone 7.5 mg tablet mg 04/24/24 Previous Rx's ?Medication ?Instructions ?Recorded albuterol sulfate 90 mcg/actuation 2 inh inhalation Q4H PRN shortness 10/06/24 aerosol inhaler of breath or wheezing #8.5 grams benzonatate 200 mg capsule 200 mg PO TID PRN cough #14 caps 10/06/24 methylprednisolone 4 mg tablets in 4 mg PO DAILY follow directions on 10/06/24 a dose pack (Medrol (Demarco)) package insert #21 ea Allergies Allergy/AdvReac Type Severity Reaction Status Date / Time No Known Drug Allergies Allergy Verified 08/10/24 19:06 Opioid HPI Opioid Management Most Recent Opioid Data: Last Pain Scale 10 07/31/24 17:49 07/31/24 Review of Systems ROS Status of ROS 10 or more systems reviewed and unremarkable except as noted in history and below [facility] Social History Smoking status: Current every day smoker Little interest or pleasure in doing things: not at all Feeling down, depressed, or hopeless: not at all Exam Narrative Exam Narrative: Prior to examining the patient, I have washed with hospital approved and provided Antiseptic Hand Russet Repairer and have also applied gloves.? Prior to touching the patient, I asked for consent to examine the patient.? General: Alert and oriented, well nourished, mild distress. Eye: PERRL, EOMI, normal conjunctiva. HENT: Normocephalic, normal hearing, moist oral mucosa, no scleral icterus, no sinus tenderness. Tympanic membranes are not red, dull, bulging. Posterior oropharynx has no erythema, edema, or exudate. Neck: Supple, non-tender, no carotid bruits, no JVD, no lymphadenopathy. Lungs: Clear to auscultation and percussion, non-labored respiration. No rhonchi, rales, wheezing but the patient does have coarse breath sounds. Heart: Normal rate, regular rhythm, no murmur, gallop or edema. Abdomen: Soft, non-tender, non-distended, normal bowel sounds, no masses. Musculoskeletal: Normal range of motion and strength, no tenderness or swelling. Skin: Skin is warm, dry and pink, no rashes or lesions. Neurologic: Awake, alert, and oriented X3, CN II-XII intact. Psychiatric: Cooperative, appropriate mood and affect.? Following the conclusion of the examination, I have washed my hands thoroughly after removing examination gloves. Constitutional Vital Signs, click to edit/add: Last Vital Signs Temp 98.2 F 10/05/24 21:46 Pulse 77 10/05/24 21:46 Resp 18 10/05/24 21:46 BP 141/86 10/05/24 21:46 Pulse Ox 98 10/05/24 21:46 O2 Del Method Room Air 10/05/24 21:46 Course Course Hospital Course: In summary the patient is a 39-year-old male presented with upper respiratory type symptoms. Patient's chest x-ray was negative for any acute cardiopulmonary process and his viral swabs were negative. Patient at this time needs expectant management of his symptoms. He will be safe to be discharged home. Vital Signs Vital signs: Vital Signs Temperature 98.2 F 10/05/24 21:46 Pulse Rate 77 10/05/24 21:46 Respiratory Rate 18 10/05/24 21:46 Blood Pressure 141/86 10/05/24 21:46 Pulse Oximetry 98 10/05/24 21:46 Oxygen Delivery Method Room Air 10/05/24 21:46 Temperature 98.2 F 10/05/24 21:46 Pulse Rate 77 10/05/24 21:46 Respiratory Rate 18 10/05/24 21:46 Blood Pressure 141/86 10/05/24 21:46 Pulse Oximetry 98 10/05/24 21:46 Oxygen Delivery Method Room Air 10/05/24 21:46 Medical Decision Making [facility] Narrative Medical decision making narrative: 39-year-old male who presents with upper respiratory type symptoms. Patient is nontoxic and in no acute distress in appearance. He has no neck pain or stiffness. No clinical evidence of meningitis. His viral swabs for COVID and influenza were unremarkable. Chest x-ray was negative for pneumonia. Patient at this time appears to have more of a bronchitis type of picture. Patient will receive breathing treatments, cough medication, and steroid therapy. Patient should follow-up with his primary medical physician for further evaluation and treatment. Differential Diagnosis Differential Diagnosis: COVID, influenza, pneumonia, upper respiratory infection, bronchitis Medical Records Medical records reviewed: Yes I reviewed the patient's medical records Lab Data Lab results reviewed: Yes I reviewed the patient's lab results Labs: Lab Results 10/05/24 Range/Units 21:50 Influenza Type A Ag Negative Influenza Type B Ag Negative SARS-CoV-2 Ag (CV2AG) Negative (NEGATIVE) Imaging Data Chest x-ray: Attestation: I have reviewed the pertinent imaging results. Radiologist's impression: No acute cardiopulmonary process. Discharge Plan Discharge Chief Complaint: Upper Respiratory Infection Clinical Impression: Bronchitis Patient Disposition: Home, Self-Care Time of Disposition Decision: 00:34 Condition: Good Mode of Transportation: Private Vehicle Prescriptions / Home Meds: New benzonatate 200 mg capsule 200 mg PO TID PRN (Reason: cough) Qty: 14 0RF albuterol sulfate 90 mcg/actuation HFA aerosol inhaler 2 inh inhalation Q4H PRN (Reason: shortness of breath or wheezing) Qty: 8.5 0RF methylprednisolone [Medrol (Demarco)] 4 mg tablets,dose pack 4 mg PO DAILY Qty: 21 0RF No Action fluoxetine [Prozac] 10 mg capsule 10 mg PO DAILY bupropion HCl [Wellbutrin XL] 300 mg tablet extended release 24 hr 300 mg PO DAILY trazodone 50 mg tablet 150 mg PO .qhs Vraylar 1.5 mg capsule 1.5 mg PO DAILY benztropine 0.5 mg tablet 0.5 mg PO Patient Comments: started today buspirone 7.5 mg tablet Print Language: Armenian Instructions: Acute Bronchitis (ED) Additional Instructions: Thank you for your patience and trusting me with your care. Please scrap picker your prescriptions tomorrow. Try to avoid dairy products and increase your fluid. Referrals: SILVIA OWENS [Primary Care Provider] - 1 week Discharge Date/Time: 10/06/24 00:53
== END 2024-10-06 00:53 | disposition home or self-care (01) ==
PROVIDERS: Emergency Provider Emergency Medicine; PCP Nurse Practitioner
DX: J40 Bronchitis, not specified as acute or chronic (principal); F17.200 Nicotine dependence, unspecified, uncomplicated
CPT/HCPCS: 71046; 87804; 87811; 99285